=== PATIENT | male | born 1930 | race Caucasian/White ===

== ENCOUNTER 2016-05-28 12:36 | Emergency (ER) | payer MEDICARE, OTHER ==
[2016-05-28 13:16] LABS: BASOPHILS 0.2 % (0.0-2.0); EOSINOPHILS 0.7 % (0-7); HEMATOCRIT 36.7 % (42.0-54.0); HEMOGLOBIN 12.2 g/dL (13.5-17.5); IMMATURE GRANULOCYTES 0.2 % (0-5); LYMPHOCYTES 34.2 % (15-50); MCH 30.7 pg (26.0-34.0); MCHC 33.2 g/dL (31.0-37.0); MCV 92.2 fL (80.0-100.0); MEAN PLATELET VOLUME 9.7 fL (7.4-10.4); MONOCYTES 11.1 % (2-11); NEUTROPHILS 53.6 % (40-80); PLATELET COUNT 159 10x3/uL (130-400); RBC 3.98 10x6/uL (4.20-6.10); RDW 13.4 % (11.5-14.5); WBC 5.8 10x3/uL (4.8-10.8)
[2016-05-28 13:32] LABS: INR 1.07 (0.85-1.17); PROTIME 13.8 SECONDS (11.6-15.0)
[2016-05-28 13:44] LABS: ALBUMIN 3.2 g/dL (3.4-5.0); ANION GAP 11.7 mmol/L (8-16); BILIRUBIN - TOTAL 0.4 mg/dL (0.2-1.3); CALCIUM 8.8 mg/dL (8.5-10.1); CARBON DIOXIDE 27.7 mmol/L (21.0-32.0); CREATININE - SERUM 1.2 mg/dL (0.6-1.3); POTASSIUM - SERUM 4.4 mmol/L (3.5-5.1); PROTEIN - SERUM 5.9 g/dL (6.4-8.2)
[2016-05-28 14:09] LABS: APTT 23.2 SECONDS (22.8-39.4)
== END 2016-05-28 16:22 | disposition home or self-care (01) ==
LOC: D.ER 12:36
PROVIDERS: Emergency Medicine
DX: G45.9 Transient cerebral ischemic attack, unspecified (principal); R53.1 Weakness; I10 Essential (primary) hypertension; E11.9 Type 2 diabetes mellitus without complications; E78.5 Hyperlipidemia, unspecified

== ENCOUNTER → 2016-06-01 10:22 | Outpatient (CLI) | payer MEDICARE, OTHER | END | disposition home or self-care (01) | LOC: D.CT 10:22 | DX: I65.21 Occlusion and stenosis of right carotid artery (principal) ==

== ENCOUNTER → 2016-06-25 10:26 | Outpatient (CLI) | payer MEDICARE, OTHER | END | disposition home or self-care (01) | LOC: D.US 06-19 10:30 | DX: E04.1 Nontoxic single thyroid nodule (principal) ==

== ENCOUNTER 2016-06-28 11:45 | Emergency (ER) | payer MEDICARE, OTHER ==
[2016-06-28 12:56] LABS: ANION GAP 16.9 mmol/L (8-16); CALCIUM 9.1 mg/dL (8.5-10.1); CREATININE - SERUM 1.3 mg/dL (0.6-1.3); POTASSIUM - SERUM 4.9 mmol/L (3.5-5.1)
[2016-06-28 12:59] LABS: BASOPHILS 0 % (0.0-2.0); EOSINOPHILS 0.6 % (0-7); HEMATOCRIT 36.9 % (42.0-54.0); HEMOGLOBIN 12.5 g/dL (13.5-17.5); IMMATURE GRANULOCYTES 0.2 % (0-5); LYMPHOCYTES 32.3 % (15-50); MCH 31.3 pg (26.0-34.0); MCHC 33.9 g/dL (31.0-37.0); MCV 92.5 fL (80.0-100.0); MEAN PLATELET VOLUME 9.8 fL (7.4-10.4); MONOCYTES 7.8 % (2-11); NEUTROPHILS 59.1 % (40-80); PLATELET COUNT 145 10x3/uL (130-400); RBC 3.99 10x6/uL (4.20-6.10); RDW 12.8 % (11.5-14.5); WBC 5.3 10x3/uL (4.8-10.8)
== END 2016-06-28 14:30 | disposition home or self-care (01) ==
LOC: D.ER 11:45
PROVIDERS: Emergency Medicine
DX: G45.9 Transient cerebral ischemic attack, unspecified (principal); E11.9 Type 2 diabetes mellitus without complications; I10 Essential (primary) hypertension; E78.5 Hyperlipidemia, unspecified; I44.0 Atrioventricular block, first degree

== ENCOUNTER 2016-09-20 11:00 | Emergency (ER) | payer MEDICARE, OTHER ==
[2016-09-20 15:11] LABS: BASOPHILS 0 % (0-2); EOSINOPHILS 0.3 % (0-7); HEMATOCRIT 38.4 % (42.0-54.0); IMMATURE GRANULOCYTES 0.2 % (0-5); LYMPHOCYTES 17.4 % (15-50); MCH 31.1 pg (26.0-34.0); MCHC 33.9 g/dL (31.0-37.0); MCV 91.9 fL (80.0-100.0); MEAN PLATELET VOLUME 9.7 fL (7.4-10.4); MONOCYTES 7.8 % (2-11); NEUTROPHILS 74.3 % (40-80); PLATELET COUNT 164 10x3/uL (130-400); RBC 4.18 10x6/uL (4.20-6.10); RDW 13.1 % (11.5-14.5)
[2016-09-20 15:18] LABS: INR 1.04 (0.85-1.17); PROTIME 13.4 SECONDS (11.6-15.0)
[2016-09-20 15:38] LABS: ALBUMIN 3.4 g/dL (3.4-5.0); ANION GAP 11.2 mmol/L (8-16); BILIRUBIN - TOTAL 0.4 mg/dL (0.2-1.3); CALCIUM 9.6 mg/dL (8.5-10.1); CARBON DIOXIDE 27.6 mmol/L (21.0-32.0); CREATININE - SERUM 1.4 mg/dL (0.6-1.3); POTASSIUM - SERUM 4.8 mmol/L (3.5-5.1); PROTEIN - SERUM 6.7 g/dL (6.4-8.2)
== END 2016-09-20 16:08 | disposition home or self-care (01) ==
LOC: D.ER 11:00
PROVIDERS: Nurse Practitioner Family
DX: S20.219A Contusion of unspecified front wall of thorax, initial encounter (principal); W01.0XXA Fall on same level from slipping, tripping and stumbling without subsequent striking against object, initial encounter; Y93.89 Activity, other specified; Y92.410 Unspecified street and highway as the place of occurrence of the external cause; Z86.73 Personal history of transient ischemic attack (TIA), and cerebral infarction without residual deficits; E11.9 Type 2 diabetes mellitus without complications; I10 Essential (primary) hypertension; E78.5 Hyperlipidemia, unspecified

== ENCOUNTER → 2017-06-17 08:45 | Outpatient (CLI) | payer MEDICARE, OTHER | END | disposition home or self-care (01) | LOC: D.US 08:45 | DX: R94.5 Abnormal results of liver function studies (principal) ==

== ENCOUNTER → 2018-06-03 09:10 | Outpatient (CLI) | payer MEDICARE, OTHER ==
[2018-06-03 10:33] LABS: ALBUMIN 3.1 g/dL (3.4-5.0); ANION GAP 10.7 mmol/L (8-16); BILIRUBIN - TOTAL 0.49 mg/dL (0.2-1.3); CALCIUM 8.8 mg/dL (8.5-10.1); CARBON DIOXIDE 26.7 mmol/L (21.0-32.0); CREATININE - SERUM 1.5 mg/dL (0.6-1.3); POTASSIUM - SERUM 4.4 mmol/L (3.5-5.1); PROTEIN - SERUM 6.4 g/dL (6.4-8.2)
== END | disposition home or self-care (01) ==
LOC: D.LAB 09:10
PROVIDERS: Family Medicine
DX: E11.9 Type 2 diabetes mellitus without complications (principal)

== ENCOUNTER 2018-08-02 12:16 | Inpatient (IN) | payer MEDICARE, OTHER ==
[~2018-08-02] VITALS: Ht 172.7 cm; Wt 87.3 kg
[2018-08-02] MEDS ORDERED: LOTREL 5/10 MG1 CAP PO (12:45)
[2018-08-02] MEDS ORDERED: WELCHOL625 MG PO (12:45)
[2018-08-02] MEDS ORDERED: LIPITOR40 MG PO (12:45)
[2018-08-02] MEDS ORDERED: XALATAN 0.0052.5 ML RIGHT EYE (12:46)
[2018-08-02] MEDS ORDERED: PREVACID30 MG PO (12:46)
[2018-08-02] MEDS ORDERED: GLUCOTROL 5 MG T5 MG PO (12:46)
[2018-08-02] MEDS ORDERED: TRICOR145 MG PO (12:46)
[2018-08-02] MEDS ORDERED: PROSCAR5 MG PO (12:46)
[2018-08-02] MEDS ORDERED: CO Q-10100 MG PO (12:47)
[2018-08-02] MEDS ORDERED: BAYER ASPIRIN325 MG PO (12:47)
[2018-08-02] MEDS ORDERED: COMBIGAN OPHT DR5 ML EACH EYE (12:47)
[2018-08-02 13:08] VITALS: BP 192/91
[2018-08-02 13:58] LABS: BASOPHILS 0 % (0-2); EOSINOPHILS 0.4 % (0-7); HEMATOCRIT 38.4 % (42.0-54.0); HEMOGLOBIN 13.1 g/dL (13.5-17.5); IMMATURE GRANULOCYTES 0.2 % (0-5); LYMPHOCYTES 12.7 % (15-50); MCH 30.8 pg (26.0-34.0); MCHC 34.1 g/dL (31.0-37.0); MCV 90.4 fL (80.0-100.0); MEAN PLATELET VOLUME 9.5 fL (7.4-10.4); MONOCYTES 11.8 % (2-11); NEUTROPHILS 74.9 % (40-80); PLATELET COUNT 147 10x3/uL (130-400); RBC 4.25 10x6/uL (4.20-6.10); RDW 13.4 % (11.5-14.5); WBC 5.5 10x3/uL (4.8-10.8)
[2018-08-02 14:00] VITALS: BP 185/65
[2018-08-02 14:03] LABS: INR 1.1 (0.85-1.17); PROTIME 13.7 SECONDS (11.6-15.0)
[2018-08-02 14:07] LABS: ALBUMIN 3.6 g/dL (3.4-5.0); ALKALINE PHOSPHATASE 81 U/L (46-116); ALT (SGPT) 31 U/L (10-68); BILIRUBIN - TOTAL 0.46 mg/dL (0.2-1.3); CALC OSMOLALITY 284 mosm/kg (275-300); CALCIUM 9.1 mg/dL (8.5-10.1); CARBON DIOXIDE 25.9 mmol/L (21.0-32.0); CHLORIDE - SERUM 105 mmol/L (98-107); CREATININE - SERUM 1.6 mg/dL (0.6-1.3); GLUCOSE 107 mg/dL (74-106); POTASSIUM - SERUM 4.4 mmol/L (3.5-5.1); PROTEIN - SERUM 7.5 g/dL (6.4-8.2); SODIUM 141 mmol/L (136-145); UREA NITROGEN 24 mg/dL (7-18); eGFR NON AFRICAN AMERICAN 43 mL/min (90-120)
[2018-08-02 14:23] LABS: CKMB 2.8 U/L (0.0-3.6); CREATINE KINASE 93 UL (21-232); PRO BNP 2605 pg/mL (0-450)
[2018-08-02 14:25] LABS: TROPONIN-I 0.125 ng/mL (0.000-0.060)
[2018-08-02 15:00] VITALS: BP 190/75
[2018-08-02 15:34] LABS: APPEARANCE CLEAR (CLEAR); BILIRUBIN NEGATIVE (NEGATIVE); COLOR YELLOW (YELLOW); GLUCOSE NEGATIVE (NEGATIVE); KETONE NEGATIVE (NEGATIVE); NITRITE NEGATIVE (NEGATIVE); PH 7.5 (5.0-6.0); PROTEIN 1+ mg/dL (NEGATIVE); SPECIFIC GRAVITY 1.005 (1.005-1.020); UROBILINOGEN NORMAL (NORMAL)
[2018-08-02 15:48] LABS: BACTERIA FEW /hpf (NONE SEEN); EPITHELIAL CELLS RARE /hpf (0-5); RED CELLS - URINE 0-5 /hpf (0-5); WHITE CELLS - URINE RARE /hpf (0-5)
[2018-08-02 18:10] VITALS: BP 166/61; BMI 30.4
[2018-08-02 20:36] VITALS: BP 134/57
[2018-08-02 23:55] VITALS: BP 149/69
[2018-08-03 04:20] VITALS: BP 152/70
[2018-08-03 05:12] LABS: BASOPHILS 0 % (0-2); EOSINOPHILS 0 % (0-7); HEMATOCRIT 33.4 % (42.0-54.0); HEMOGLOBIN 11.6 g/dL (13.5-17.5); IMMATURE GRANULOCYTES 0.2 % (0-5); MCH 30.5 pg (26.0-34.0); MCHC 34.7 g/dL (31.0-37.0); MEAN PLATELET VOLUME 9.3 fL (7.4-10.4); MONOCYTES 1.3 % (2-11); NEUTROPHILS 86.5 % (40-80); PLATELET COUNT 137 10x3/uL (130-400); WBC 5.3 10x3/uL (4.8-10.8)
[2018-08-03 05:32] LABS: ANION GAP 15.8 mmol/L (8-16); CALCIUM 8.5 mg/dL (8.5-10.1); CARBON DIOXIDE 22.3 mmol/L (21.0-32.0); CHOL - HDL RATIO 3.8 ratio (2.3-4.9); CREATININE - SERUM 1.6 mg/dL (0.6-1.3); LDL-HDL RATIO 2.4 ratio (1.5-3.5); POTASSIUM - SERUM 4.1 mmol/L (3.5-5.1)
[2018-08-03 05:34] LABS: MCV 87.9 fL (80.0-100.0)
[2018-08-03 08:59] VITALS: BP 182/56
[2018-08-03 13:09] VITALS: BP 133/69
[2018-08-03 16:47] VITALS: BP 142/60
[2018-08-03 20:00] VITALS: BP 129/75
[2018-08-04] VITALS: BP 145/64
[2018-08-04 03:00] VITALS: BP 178/73
[2018-08-04 06:20] LABS: CALCIUM 8.6 mg/dL (8.5-10.1); CARBON DIOXIDE 23.2 mmol/L (21.0-32.0); CREATININE - SERUM 1.7 mg/dL (0.6-1.3); POTASSIUM - SERUM 4.2 mmol/L (3.5-5.1)
[2018-08-04 08:30] VITALS: BP 198/88
[2018-08-04 12:18] VITALS: BMI 30.4
[2018-08-04 17:17] VITALS: BP 144/60
[2018-08-05 05:56] VITALS: BP 127/89
[2018-08-05 09:46] VITALS: BP 161/73
--- NOTE | 2018-08-05 12:38 | MORECARE ---
CASE MANAGEMENT DISCHARGE SUMMARY PATIENT: LATASHA MOORE UNIT: [id number] ADM DATE: 08/02/18 AGE: 88 : 30 SEX: M ROOM/BED: D.2217 AUTHOR: BRYCE OSBORNE PHYSICIAN: REFERRING PHYSICIAN: ASAD GOLDEN MD DATE OF SERVICE: 08/05/18 Discharge Plan Patient Name: LATASHA MOORE [facility] [facility] 1930 Planned Disposition: Home or Self Care Anticipated Discharge Date: Discharge Date: Expected LOS: Initial Reviewer: [email or web address] Initial Review Date: 08/02/2018 Generated: 08/05/18 1:37 pm DCPIA - Discharge Planning Initial Assessment Updated by [email or web address]: Nilda Ledbetter on 08/05/18 12:37 pm * Is the patient Alert and Oriented? Yes * How many steps to enter\exit or inside your home? * PCP LORNA * [facility]acy [facility] * Preadmission Environment Home with Family * ADLs Independent * Equipment Glucometer * List name and contact numbers for known caregivers / representatives who currently or will assist patient after discharge: KELLY () [phone] * Verbal permission to speak to the caregivers and representatives has been obtained from the patient. N/A * Community resources currently utilized None * Additional services required to return to the preadmission environment? No * Can the patient safely return to the preadmission environment? Yes * Has this patient been hospitalized within the prior 30 days at any hospital? No Patient Name: LATASHA MOORE Page [id number] at 1238 All edits/amendments must be made on the electronic document DICTATION DATE: 08/05/18 1237 GUITAR INSTRUCTOR: ALEJANDRA 08/05/18 1237 RPT#: [id number] DC DATE: STATUS: ADM IN [facility] [address] [place] [address] END OF REPORT
--- NOTE | 2018-08-05 12:45 | MORECARE ---
CASE MANAGEMENT DISCHARGE SUMMARY PATIENT: LATASHA MOORE UNIT: [id number] ADM DATE: 08/02/18 AGE: 88 : 30 SEX: M ROOM/BED: D.2217 AUTHOR: INDIA,DOC PHYSICIAN: REFERRING PHYSICIAN: ASAD GOLDEN MD DATE OF SERVICE: 08/05/18 Discharge Plan Patient Name: LATASHA MOORE Facility: [facility]:[place] : 1930 Planned Disposition: Home or Self Care Anticipated Discharge Date: Discharge Date: Expected LOS: Initial Reviewer: [email or web address] Initial Review Date: 08/02/2018 Generated: 08/05/18 1:45 pm Comments DCP- Discharge Planning Updated by [email or web address]: Nilda Ledbetter on 08/05/18 11:[address] Patient Name: LTAASHA MOORE Admission Status: ER Accout number: [id number] Admission Date: 08-02-2018 : 1930 Admission Diagnosis:COUGH Attending: ASAD GOLDEN Current LOS: 3 Anticipated DC Date: Planned Disposition: Home or Self Care Primary Insurance: MEDICARE A & B Discharge Planning Comments: CM met with patient to complete initial dc planning assessment. CM educated patient on the CM role and verbal consent given by patient to complete assessment. Patient lives at home with his where he is independent with his care. At discharge patient plans to return home and feels this is a safe discharge. CM discussed availability of home health, rehab services, and medical equipment. He has a glucometer at home and does not feel like he needs home health at this time. His family did question about a Nebulizer if he will need it at DC. DEJAN with Frida if he needs a nebulizer. IMM served and explained. Patient denied known discharge needs at this time. CM will continue to follow and will assist as needed with dc plans/needs. Wash Plant Operator: Nilda Ledbetter DCPIA - Discharge Planning Initial Assessment Updated by [id number]: Nilda Ledbetter on 08/05/18 12:37 pm * Is the patient Alert and Oriented? Yes * How many steps to enter\exit or inside your home? * PCP LORNA * Pharmacy [facility] * Preadmission Environment Home with Family * ADLs Independent * Equipment Glucometer * List name and contact numbers for known caregivers / representatives who currently or will assist patient after discharge: KELLY () [phone] * Verbal permission to speak to the caregivers and representatives has been obtained from the patient. N/A * Community resources currently utilized None * Additional services required to return to the preadmission environment? No * Can the patient safely return to the preadmission environment? Yes * Has this patient been hospitalized within the prior 30 days at any hospital? No Coverage Notice Reviewer: [email or web address] Kiera Ledbetter Notice Issued Date-Time: 08/05/2018 11:45 Notice Type: IM Discharge Notice Notice Delivered To: Patient Relationship to Patient: Spread Cutter Name: Delivery Method: HAND - Hand Delivered Viviana Days: Prior Verbal Notification: Recipient Understood Notice: Yes Recipient Signature: Yes Med Rec Note Co-signed by Attending: Coverage Notice Comment: Last DP export: 08/05/18 11:37 a Patient Name: LATASHA MOORE Page [phone] at 1245 All edits/amendments must be made on the electronic document DICTATION DATE: 08/05/18 1245 MOTHER REPAIRER: ALEJANDRA 08/05/18 1245 RPT#: [id number] DC DATE: STATUS: ADM IN [facility] [address] [place] [address] END OF REPORT
[2018-08-05 15:10] VITALS: BP 156/75
[2018-08-05 17:24] VITALS: BP 130/67
[2018-08-05 21:37] VITALS: BP 174/74
[2018-08-06] VITALS (22 sets, daily range): BP systolic 117–191; BP diastolic 57–92
[2018-08-06 05:27] LABS: BASOPHILS 0 % (0-2); EOSINOPHILS 0 % (0-7); HEMOGLOBIN 12.3 g/dL (13.5-17.5); IMMATURE GRANULOCYTES 0.3 % (0-5); LYMPHOCYTES 4.4 % (15-50); MCH 30.8 pg (26.0-34.0); MCHC 34.2 g/dL (31.0-37.0); MCV 90.2 fL (80.0-100.0); MEAN PLATELET VOLUME 9.8 fL (7.4-10.4); MONOCYTES 10.3 % (2-11); RBC 3.99 10x6/uL (4.20-6.10); RDW 13.6 % (11.5-14.5); WBC 13.5 10x3/uL (4.8-10.8)
[2018-08-06 05:43] LABS: PLATELET COUNT 166 10x3/uL (130-400)
[2018-08-06 05:53] LABS: ANION GAP 12.1 mmol/L (8-16); CALCIUM 8.1 mg/dL (8.5-10.1); CREATININE - SERUM 1.9 mg/dL (0.6-1.3); POTASSIUM - SERUM 5.1 mmol/L (3.5-5.1)
[2018-08-07] VITALS (26 sets, daily range): BP systolic 126–167; BP diastolic 35–78; Ht 172.7 cm; Wt 87.3 kg
[2018-08-07 04:53] LABS: BASOPHILS 0 % (0-2); EOSINOPHILS 0 % (0-7); HEMATOCRIT 34.8 % (42.0-54.0); HEMOGLOBIN 11.8 g/dL (13.5-17.5); IMMATURE GRANULOCYTES 0.1 % (0-5); LYMPHOCYTES 8.6 % (15-50); MCH 30.3 pg (26.0-34.0); MCHC 33.9 g/dL (31.0-37.0); MCV 89.5 fL (80.0-100.0); MEAN PLATELET VOLUME 9.8 fL (7.4-10.4); MONOCYTES 10.6 % (2-11); NEUTROPHILS 80.7 % (40-80); PLATELET COUNT 158 10x3/uL (130-400); RBC 3.89 10x6/uL (4.20-6.10); RDW 13.3 % (11.5-14.5)
[2018-08-07 05:01] LABS: WBC 9.4 10x3/uL (4.8-10.8)
[2018-08-07 05:12] LABS: ALBUMIN 2.9 g/dL (3.4-5.0); ANION GAP 10.3 mmol/L (8-16); BILIRUBIN - TOTAL 0.33 mg/dL (0.2-1.3); CALCIUM 8.3 mg/dL (8.5-10.1); CARBON DIOXIDE 30.7 mmol/L (21.0-32.0); CREATININE - SERUM 2.1 mg/dL (0.6-1.3); MAGNESIUM - SERUM 1.9 mg/dL (1.8-2.4); PHOSPHOROUS 4.3 mg/dL (2.5-4.9)
[2018-08-08] VITALS (23 sets, daily range): BP systolic 102–169; BP diastolic 37–88
[2018-08-08 06:47] LABS: ALBUMIN 2.6 g/dL (3.4-5.0); ANION GAP 10.5 mmol/L (8-16); BILIRUBIN - TOTAL 0.26 mg/dL (0.2-1.3); CALCIUM 8.2 mg/dL (8.5-10.1); CARBON DIOXIDE 29.6 mmol/L (21.0-32.0); CREATININE - SERUM 1.9 mg/dL (0.6-1.3); POTASSIUM - SERUM 4.1 mmol/L (3.5-5.1); PROTEIN - SERUM 5.8 g/dL (6.4-8.2)
[2018-08-08 07:00] LABS: BASOPHILS 0 % (0-2); EOSINOPHILS 0 % (0-7); HEMATOCRIT 34.9 % (42.0-54.0); HEMOGLOBIN 11.6 g/dL (13.5-17.5); IMMATURE GRANULOCYTES 0.1 % (0-5); LYMPHOCYTES 7.2 % (15-50); MCH 30.1 pg (26.0-34.0); MCHC 33.2 g/dL (31.0-37.0); MCV 90.6 fL (80.0-100.0); MEAN PLATELET VOLUME 10.4 fL (7.4-10.4); MONOCYTES 6.7 % (2-11); PLATELET COUNT 148 10x3/uL (130-400); RBC 3.85 10x6/uL (4.20-6.10); RDW 13.2 % (11.5-14.5); WBC 8.1 10x3/uL (4.8-10.8)
--- NOTE | 2018-08-08 14:57 | EC ---
PATIENT:LATASHA MOORE DATE OF SERVICE: 08/02/18 SEX: M MEDICAL RECORD: [id number] DATE OF : 30 LOCATION:[place] [address] AGE OF PATIENT: 88 ADMISSION DATE: 08/02/18 REFERRING PHYSICIAN: INTERPRETING PHYSICIAN: ELSY AMOS MD ECHOCARDIOGRAM REPORT ECHO CHARGES 4 ECHO COMPLETE Date: 08/06/18 CLINICAL DIAGNOSIS: CHF ECHOCARDIOGRAPHIC MEASUREMENTS (adult normal given) AC root (d.<3.7cm) 3.2 cm LV Septum d (<1.2 cm> 1.4 cm Valve Excursion 1.1 cm LV Septum (systole) 1.6 cm Left Atria (s.<4.0cm> 4.0 cm LVPW d(<1.2cm) 1.3 cm RV (d.<2.3cm) 3.7 cm LVPW (sytole) 1.5 cm LV diastole(<5.6CM) 6.0 cm MV E-F(>70mm/sec) cm LV systole 5.0 cm LVOT Diameter 1.6 cm MV exc.(>10mm) 1.3 cm Est.ejection fraction (50-75%) % DOPPLER: LVIT cm/sec A 83.0 cm/sec E 93.0 cm/sec LA cm/sec RVSP 34 mmHg LVOT 163 cm/sec AOP1/2T m/s Asc. Ao 214 cm/sec RVOT 67 cm/sec RA cm/sec PA 142 cm/sec AV Gradient Peak 18.28mmHg AV Mean 9.52 mmHg AV Area 1.6 cm MV Gradient Peak 7.83 mmHg MV Mean 1.59 mmHg MV Area cm COMMENTS: Edger Operator: Danis DUFFY Kiln Car Unloader: 1 Dr. Amos TAPE# PACS Pericardial Effusion N DATE OF SERVICE: 08/07/2018 FINDINGS: 1. Left ventricular chamber size is within normal limits. Left ventricular systolic function is normal. Overall ejection fraction estimated at 55%. 2. Left atrium is upper limits of normal at 4.0 cm. Right atrium and right ventricular chamber sizes are mildly dilated. 3. Valvular structures: Aortic valve demonstrates mild calcific aortic stenosis, valve area calculates to 1.6 cm-squared. There is a gradient of 18 mm across the valve. The remaining valvular structures have normal structure and ECHOCARDIOGRAM REPORT [id number] LATASHA MOORE. 4. Doppler interrogation elsewise reveals txji-[id number]-yqpesrpw mitral regurgitation, mild tricuspid regurgitation, no other valvular insufficiency or stenosis. Pulmonary systolic pressure is estimated at 34 mmHg. 5. No evidence of pericardial effusion or left ventricular thrombus. TRANSINT:[id number] Voice Confirmation ID: [id number] DOCUMENT ID: [id number] ELSY AMOS MD at 1457 CC: [id number] DICTATION DATE: 08/07/18 1519 FILE CONVERSION OPERATOR: 08/07/18 2249 ADM IN [place] [id number] [place] [id number]
[2018-08-09] VITALS (16 sets, daily range): BP systolic 119–158; BP diastolic 44–87
[2018-08-09 05:46] LABS: BASOPHILS 0.1 % (0-2); EOSINOPHILS 0 % (0-7); HEMATOCRIT 38.4 % (42.0-54.0); IMMATURE GRANULOCYTES 0.3 % (0-5); LYMPHOCYTES 7.5 % (15-50); MCH 30.5 pg (26.0-34.0); MCHC 33.9 g/dL (31.0-37.0); MCV 90.1 fL (80.0-100.0); MEAN PLATELET VOLUME 10.1 fL (7.4-10.4); MONOCYTES 5.7 % (2-11); NEUTROPHILS 86.4 % (40-80); PLATELET COUNT 164 10x3/uL (130-400); RBC 4.26 10x6/uL (4.20-6.10); RDW 13.2 % (11.5-14.5)
[2018-08-09 05:49] LABS: WBC 11.2 10x3/uL (4.8-10.8)
[2018-08-09 06:09] LABS: ANION GAP 10.3 mmol/L (8-16); CALCIUM 8.5 mg/dL (8.5-10.1); CREATININE - SERUM 1.8 mg/dL (0.6-1.3); POTASSIUM - SERUM 4.3 mmol/L (3.5-5.1)
[2018-08-10 03:07] VITALS: BP 164/85
[2018-08-10 05:56] LABS: BASOPHILS 0.1 % (0-2); EOSINOPHILS 0 % (0-7); HEMATOCRIT 41.1 % (42.0-54.0); HEMOGLOBIN 13.9 g/dL (13.5-17.5); IMMATURE GRANULOCYTES 0.5 % (0-5); LYMPHOCYTES 7.7 % (15-50); MCH 30.6 pg (26.0-34.0); MCHC 33.8 g/dL (31.0-37.0); MCV 90.5 fL (80.0-100.0); MONOCYTES 7.1 % (2-11); NEUTROPHILS 84.6 % (40-80); PLATELET COUNT 196 10x3/uL (130-400); RBC 4.54 10x6/uL (4.20-6.10); RDW 13.3 % (11.5-14.5); WBC 10.1 10x3/uL (4.8-10.8)
[2018-08-10 06:26] LABS: ANION GAP 8.5 mmol/L (8-16); CALCIUM 8.8 mg/dL (8.5-10.1); CARBON DIOXIDE 31.5 mmol/L (21.0-32.0); CREATININE - SERUM 1.6 mg/dL (0.6-1.3)
[2018-08-10 07:15] VITALS: BP 165/68
[2018-08-10 14:00] VITALS: BP 138/48
[2018-08-10 20:30] VITALS: BP 151/73
[2018-08-11] VITALS: BP 125/59
[2018-08-11 04:23] LABS: APTT 24.9 SECONDS (22.8-39.4); INR 1.13 (0.85-1.17)
[2018-08-11 04:24] LABS: ANION GAP 7.3 mmol/L (8-16); CALCIUM 8.3 mg/dL (8.5-10.1); CARBON DIOXIDE 32.7 mmol/L (21.0-32.0); CREATININE - SERUM 1.4 mg/dL (0.6-1.3)
[2018-08-11 04:30] VITALS: BP 141/68
[2018-08-11 08:00] VITALS: BP 116/44
[2018-08-11 11:00] VITALS: BP 95/47
[2018-08-11] MEDS ORDERED: OMNICEF300 MG PO (14:08)
[2018-08-11] MEDS ORDERED: BROVANA15 MCG/2 M INH (14:09)
[2018-08-11] MEDS ORDERED: IPRAT-ALBUT 0.5-3 ML UPD (14:09)
[2018-08-11] MEDS ORDERED: AMIODARONE HCL200 MG PO (14:13)
[2018-08-11] MEDS ORDERED: LOPRESSOR25 MG PO (14:14)
[2018-08-11] MEDS ORDERED: PREDNISONE10 MG PO (14:21)
[2018-08-11] MEDS ORDERED: TIMOPTIC 0.5 % O5 ML OP (14:25)
[2018-08-11] MEDS ORDERED: LOTREL 10-40 M1 EACH PO (14:42)
--- NOTE | 2018-08-11 14:43 | MORECARE ---
CASE MANAGEMENT DISCHARGE SUMMARY PATIENT: LATASHA MOORE UNIT: [id number] ADM DATE: 08/02/18 AGE: 88 : 30 SEX: M ROOM/BED: D[facility] AUTHOR: INDIA,DOC PHYSICIAN: REFERRING PHYSICIAN: ASAD GOLDEN MD DATE OF SERVICE: 08/11/18 Discharge Plan Patient Name: LATASHA MOORE Facility: [facility]:[place] : 1930 Planned Disposition: Home or Self Care Anticipated Discharge Date: Discharge Date: Expected LOS: Initial Reviewer: [id number] Initial Review Date: 08/02/2018 Generated: 08/11/18 3:43 pm Comments DCP- Discharge Planning Updated by [email or web address]: Nilda Ledbetter on 08/05/18 11:[address] Patient Name: LATASHA MOORE Admission Status: ER Accout number: [id number] Admission Date: 08-02-2018 : 1930 Admission Diagnosis:COUGH Attending: ASAD GOLDEN Current LOS: 3 Anticipated DC Date: Planned Disposition: Home or Self Care Primary Insurance: MEDICARE A & B Discharge Planning Comments: CM met with patient to complete initial dc planning assessment. CM educated patient on the CM role and verbal consent given by patient to complete assessment. Patient lives at home with his where he is independent with his care. At discharge patient plans to return home and feels this is a safe discharge. CM discussed availability of home health, rehab services, and medical equipment. He has a glucometer at home and does not feel like he needs home health at this time. His family did question about a Nebulizer if he will need it at DC. DEJAN with Frida if he needs a nebulizer. IMM served and explained. Patient denied known discharge needs at this time. CM will continue to follow and will assist as needed with dc plans/needs. Ticker Maintainer: Nilda Ledbetter DCPIA - Discharge Planning Initial Assessment Updated by [email or web address]: Nilda Ledbetter on 08/05/18 12:37 pm * Is the patient Alert and Oriented? Yes * How many steps to enter\exit or inside your home? * PCP LORNA * Pharmacy [facility] * Preadmission Environment Home with Family * ADLs Independent * Equipment Glucometer * List name and contact numbers for known caregivers / representatives who currently or will assist patient after discharge: KELLY () [phone] * Verbal permission to speak to the caregivers and representatives has been obtained from the patient. N/A * Community resources currently utilized None * Additional services required to return to the preadmission environment? No * Can the patient safely return to the preadmission environment? Yes * Has this patient been hospitalized within the prior 30 days at any hospital? No External Providers External Provider: [facility] Next Contact Date: Service Request Date: Service Type: Resolution: Reviewer: Comments: Coverage Notice Reviewer: [email or web address] Kiera Ledbetter Notice Issued Date-Time: 08/05/2018 11:45 Notice Type: IM Discharge Notice Notice Delivered To: Patient Relationship to Patient: Clinical Material Handler Name: Delivery Method: HAND - Hand Delivered Viviana Days: Prior Verbal Notification: Recipient Understood Notice: Yes Recipient Signature: Yes Med Rec Note Co-signed by Attending: Coverage Notice Comment: Last DP export: 08/05/18 11:45 a Patient Name: LATASHA MOORE Page [phone] at 1443 All edits/amendments must be made on the electronic document DICTATION DATE: 08/11/181441 OXYHYDROGEN WELDER: ALEJANDRA 08/11/181441 RPT#: [id number] DC DATE: STATUS: ADM IN [facility] [address] [place] [address] END OF REPORT
--- NOTE | 2018-08-11 14:54 | MORECARE ---
CASE MANAGEMENT DISCHARGE SUMMARY PATIENT: LATASHA MOORE UNIT: [id number] ADM DATE: 08/02/18 AGE: 88 : 30 SEX: M ROOM/BED: D.[facility] AUTHOR: INDIA,DOC PHYSICIAN: REFERRING PHYSICIAN: ASAD GOLDEN MD DATE OF SERVICE: 08/11/18 Discharge Plan Patient Name: LATASHA MOORE Facility: [facility]:[place] : 1930 Planned Disposition: Home or Self Care Anticipated Discharge Date: Discharge Date: Expected LOS: Initial Reviewer: [email or web address] Initial Review Date: 08/02/2018 Generated: 08/11/18 3:54 pm Comments DCP- Discharge Planning Updated by [email or web address]: Sandy Villeda on 08/11/18 1:[address] CM received order to set up Nebulizer for discharge. DEJAN form was signed for [facility]. CM contacted [facility] they are currently out of adult nebulizers. CM spoke with patient and family regarding second choice DME. [facility] was chosen CM called and faxed records to [facility]. IMM explained and signed 08/11/18 @ 1425. CM also gave patient 30 day supply coupon for Eliquis. CM will continue to follow and assist as needed with discharge planning / needs. DCP- Discharge Planning Updated by [email or web address]: Nilda Ledbetter on 08/05/18 11:[address] Patient Name: LATASHA MOORE Admission Status: ER Accout number: [id number] Admission Date: 08-02-2018 : 1930 Admission Diagnosis:COUGH Attending: ASAD GOLDEN Current LOS: 3 Anticipated DC Date: Planned Disposition: Home or Self Care Primary Insurance: MEDICARE A & B Discharge Planning Comments: CM met with patient to complete initial dc planning assessment. CM educated patient on the CM role and verbal consent given by patient to complete assessment. Patient lives at home with his where he is independent with his care. At discharge patient plans to return home and feels this is a safe discharge. CM discussed availability of home health, rehab services, and medical equipment. He has a glucometer at home and does not feel like he needs home health at this time. His family did question about a Nebulizer if he will need it at DC. DEJAN with Frida if he needs a nebulizer. IMM served and explained. Patient denied known discharge needs at this time. CM will continue to follow and will assist as needed with dc plans/needs. Machinist Wood: Nilda Ledbetter DCPIA - Discharge Planning Initial Assessment Updated by [id number]: Nilda Ledbetter on 08/05/18 12:37 pm * Is the patient Alert and Oriented? Yes * How many steps to enter\exit or inside your home? * PCP LORNA * [facility] * Preadmission Environment Home with Family * ADLs Independent * Equipment Glucometer * List name and contact numbers for known caregivers / representatives who currently or will assist patient after discharge: KELLY () [phone] * Verbal permission to speak to the caregivers and representatives has been obtained from the patient. N/A * Community resources currently utilized None * Additional services required to return to the preadmission environment? No * Can the patient safely return to the preadmission environment? Yes * Has this patient been hospitalized within the prior 30 days at any hospital? No Coverage Notice Reviewer: [id number] - Nilda Ledbetter Notice Issued Date-Time: 08/05/2018 11:45 Notice Type: IM Discharge Notice Notice Delivered To: Patient Relationship to Patient: Radiator Core Tester Name: Delivery Method: HAND - Hand Delivered Viviana Days: Prior Verbal Notification: Recipient Understood Notice: Yes Recipient Signature: Yes Med Rec Note Co-signed by Attending: Coverage Notice Comment: Last DP export: 08/11/18 1:43 p Patient Name: LATASHA MOORE Page [id number] at 1454 All edits/amendments must be made on the electronic document DICTATION DATE: 08/11/181452 WATER GAS OPERATOR: ALEJANDRA 08/11/18 145 RPT#: [id number] NE DATE: STATUS: ADM IN [facility] [address] [place] [address] END OF REPORT
[2018-08-11] MEDS ORDERED: ELIQUIS2.5 MG PO (15:26)
--- NOTE | 2018-08-11 16:39 | MORECARE ---
CASE MANAGEMENT DISCHARGE SUMMARY PATIENT: LATASHA MOORE UNIT: [id number] ADM DATE: 08/02/18 AGE: 88 : 30 SEX: M ROOM/BED: D.[facility] AUTHOR: INDIA,DOC PHYSICIAN: REFERRING PHYSICIAN: ASAD GOLDEN MD DATE OF SERVICE: 08/11/18 Discharge Plan Patient Name: LATASHA MOORE Facility: [facility]:[place] : 1930 Planned Disposition: Home or Self Care Anticipated Discharge Date: Discharge Date: Expected LOS: Initial Reviewer: [email or web address] Initial Review Date: 08/02/2018 Generated: 08/11/18 5:39 pm Comments DCP- Discharge Planning Updated by [email or web address]: Sandy Villeda on 08/11/18 1:[address] CM received order to set up Nebulizer for discharge. DEJAN form was signed for [facility]. CM contacted [facility] they are currently out of adult nebulizers. CM spoke with patient and family regarding second choice DME. [facility] was chosen CM called and faxed records to [facility]. IMM explained and signed 08/11/18 @ 1425. CM also gave patient 30 day supply coupon for Eliquis. CM will continue to follow and assist as needed with discharge planning / needs. DCP- Discharge Planning Updated by [email or web address]: Nilda Ldebetter on 08/05/18 11:[address] Patient Name: LATASHA MOORE Admission Status: ER Accout number: [id number] Admission Date: 08-02-2018 : 1930 Admission Diagnosis:COUGH Attending: ASAD GOLDEN Current LOS: 3 Anticipated DC Date: Planned Disposition: Home or Self Care Primary Insurance: MEDICARE A & B Discharge Planning Comments: CM met with patient to complete initial dc planning assessment. CM educated patient on the CM role and verbal consent given by patient to complete assessment. Patient lives at home with his where he is independent with his care. At discharge patient plans to return home and feels this is a safe discharge. CM discussed availability of home health, rehab services, and medical equipment. He has a glucometer at home and does not feel like he needs home health at this time. His family did question about a Nebulizer if he will need it at DC. DEJAN with Fr[facility] if he needs a nebulizer. IMM served and explained. Patient denied known discharge needs at this time. CM will continue to follow and will assist as needed with dc plans/needs. Strategic Planning Specialist: Nilda Ledbetter DCPIA - Discharge Planning Initial Assessment Updated by [id number]: Nilda Ledbetter on 08/05/18 12:37 pm * Is the patient Alert and Oriented? Yes * How many steps to enter\exit or inside your home? * PCP LORNA * [facility] * Preadmission Environment Home with Family * ADLs Independent * Equipment Glucometer * List name and contact numbers for known caregivers / representatives who currently or will assist patient after discharge: KELLY () [phone] * Verbal permission to speak to the caregivers and representatives has been obtained from the patient. N/A * Community resources currently utilized None * Additional services required to return to the preadmission environment? No * Can the patient safely return to the preadmission environment? Yes * Has this patient been hospitalized within the prior 30 days at any hospital? No External Providers External Provider: [facility] Next Contact Date: Service Request Date: Service Type: Resolution: Reviewer: Comments: Coverage Notice Reviewer: [email or web address] - Nilda Ledbetter Notice Issued Date-Time: 08/05/2018 11:45 Notice Type: IM Discharge Notice Notice Delivered To: Patient Relationship to Patient: Nursing Center Tutor Name: Delivery Method: HAND - Hand Delivered Viviana Days: Prior Verbal Notification: Recipient Understood Notice: Yes Recipient Signature: Yes Med Rec Note Co-signed by Attending: Coverage Notice Comment: Reviewer: [id number] - Sandy Villeda Notice Issued Date-Time: 08/11/2018 14:25 Notice Type: IM Discharge Notice Notice Delivered To: Patient Relationship to Patient: Self Nursing Center Tutor Name: Delivery Method: HAND - Hand Delivered Viviana Days: Prior Verbal Notification: Recipient Understood Notice: Yes Recipient Signature: Yes Med Rec Note Co-signed by Attending: Coverage Notice Comment: Last DP export: 08/11/18 1:54 p Patient Name: LATASHA MOORE Page [phone] at 1639 All edits/amendments must be made on the electronic document DICTATION DATE: 08/11/181637 A/C TECH: ALEJANDRA 08/11/181637 RPT#: [id number] DC DATE: STATUS: ADM IN [facility] [address] [place] [address] END OF REPORT
--- NOTE | 2018-08-11 17:05 | MORECARE ---
CASE MANAGEMENT DISCHARGE SUMMARY PATIENT: LATASHA MOORE UNIT: [id number] ADM DATE: 08/02/18 AGE: 88 : 30 SEX: M ROOM/BED: D.07 AUTHOR: INDIA,DOC PHYSICIAN: REFERRING PHYSICIAN: ASAD GOLDEN MD DATE OF SERVICE: 08/11/18 Discharge Plan Patient Name: LATASHA MOORE Facility: [facility]:[place] : 1930 Planned Disposition: Home or Self Care Anticipated Discharge Date: Discharge Date: Expected LOS: Initial Reviewer: [email or web address] Initial Review Date: 08/02/2018 Generated: 08/11/18 6:05 pm Comments DCP- Discharge Planning Updated by [email or web address]: Sandy Villeda on 08/11/18 3:[address] CM notified to set up Home Health. DEJAN form signed for [facility]. CM notified [facility] Natali stated they had no availability until . CM contacted [facility] spoke with Priscilla [phone] she stated they would be able to see patient 08/12/18. CM faxed [phone] records and notified Nursing that patient should receive a call from [facility] to set up visit 08/12/18. CM will continue to follow and assist with discharge planning / needs. DCP- Discharge Planning Updated by [email or web address]: Sandy Villeda on 08/11/18 1:[address] CM received order to set up Nebulizer for discharge. DEJAN form was signed for [facility]. CM contacted [facility] they are currently out of adult nebulizers. CM spoke with patient and family regarding second choice DME. [facility] was chosen CM called and faxed records to [facility]. IMM explained and signed 08/11/18 @ 1422. CM also gave patient 30 day supply coupon for Eliquis. CM will continue to follow and assist as needed with discharge planning / needs. DCP- Discharge Planning Updated by [email or web address]: Nilda Ledbetter on 08/05/18 11:[address] Patient Name: LATASHA MOORE Admission Status: ER Accout number: [id number] Admission Date: 08-02-2018 : 1930 Admission Diagnosis:COUGH Attending: ASAD GOLDEN Current LOS: 3 Anticipated DC Date: Planned Disposition: Home or Self Care Primary Insurance: MEDICARE A & B Discharge Planning Comments: CM met with patient to complete initial dc planning assessment. CM educated patient on the CM role and verbal consent given by patient to complete assessment. Patient lives at home with his where he is independent with his care. At discharge patient plans to return home and feels this is a safe discharge. CM discussed availability of home health, rehab services, and medical equipment. He has a glucometer at home and does not feel like he needs home health at this time. His family did question about a Nebulizer if he will need it at DC. DEJAN with Frida if he needs a nebulizer. IMM served and explained. Patient denied known discharge needs at this time. CM will continue to follow and will assist as needed with dc plans/needs. Warehouse Unloader: Nilda Ledbetter DCPIA - Discharge Planning Initial Assessment Updated by [email or web address]: Nilda Ledbetter on 08/05/18 12:37 pm * Is the patient Alert and Oriented? Yes * How many steps to enter\exit or inside your home? * PCP LORNA * Pharmacy [facility] * Preadmission Environment Home with Family * ADLs Independent * Equipment Glucometer * List name and contact numbers for known caregivers / representatives who currently or will assist patient after discharge: KELLY () [phone] * Verbal permission to speak to the caregivers and representatives has been obtained from the patient. N/A * Community resources currently utilized None * Additional services required to return to the preadmission environment? No * Can the patient safely return to the preadmission environment? Yes * Has this patient been hospitalized within the prior 30 days at any hospital? No Coverage Notice Reviewer: [id number] - Nilda Ledbetter Notice Issued Date-Time: 08/05/2018 11:45 Notice Type: IM Discharge Notice Notice Delivered To: Patient Relationship to Patient: Youth Care Professional Name: Delivery Method: HAND - Hand Delivered Viviana Days: Prior Verbal Notification: Recipient Understood Notice: Yes Recipient Signature: Yes Med Rec Note Co-signed by Attending: Coverage Notice Comment: Reviewer: [email or web address] Kiera Villeda Notice Issued Date-Time: 08/11/2018 14:25 Notice Type: IM Discharge Notice Notice Delivered To: Patient Relationship to Patient: Self Youth Care Professional Name: Delivery Method: HAND - Hand Delivered Viviana Days: Prior Verbal Notification: Recipient Understood Notice: Yes Recipient Signature: Yes Med Rec Note Co-signed by Attending: Coverage Notice Comment: Last DP export: 08/11/18 3:39 p Patient Name: LATASHA MOORE Page [phone] at 1705 All edits/amendments must be made on the electronic document DICTATION DATE: 08/11/181704 COMMUNICATIONS COORDINATOR: ALEJANDRA 08/11/181704 RPT#: [id number] DC DATE: STATUS: ADM IN [facility] [address] [place] [address] END OF REPORT
--- NOTE | 2018-08-12 13:52 | MORECARE ---
CASE MANAGEMENT DISCHARGE SUMMARY PATIENT: LATASHA MOORE UNIT: [id number] ADM DATE: 08/02/18 AGE: 88 : 30 SEX: M ROOM/BED: D.07 AUTHOR: INDIA,DOC PHYSICIAN: REFERRING PHYSICIAN: ASAD GOLDEN MD DATE OF SERVICE: 08/12/18 Discharge Plan Patient Name: LATASHA MOORE Facility: [facility]:[place] : 1930 Planned Disposition: Home or Self Care Anticipated Discharge Date: Discharge Date: 08/11/2018 Expected LOS: Initial Reviewer: [email or web address] Initial Review Date: 08/02/2018 Generated: 08/12/18 2:52 pm Comments DCP- Discharge Planning Updated by [email or web address]: Sandy Villeda on 08/11/18 3:[address] CM notified to set up Home Health. DEJAN form signed for 1st [facility] and [facility]. CM notified [facility] Natali stated they had no availability until . CM contacted [facility] spoke with Priscilla [phone] she stated they would be able to see patient 08/12/18. CM faxed [phone] records and notified Nursing that patient should receive a call from [facility] to set up visit 08/12/18. CM will continue to follow and assist with discharge planning / needs. DCP- Discharge Planning Updated by [id number]: Sandy Villeda on 08/11/18 1:[address] CM received order to set up Nebulizer for discharge. DEJAN form was signed for [facility]. CM contacted [facility] they are currently out of adult nebulizers. CM spoke with patient and family regarding second choice DME. [facility] was chosen CM called and faxed records to [facility]. IMM explained and signed 08/11/18 @ [phone]. CM also gave patient 30 day supply coupon for Eliquis. CM will continue to follow and assist as needed with discharge planning / needs. DCP- Discharge Planning Updated by [id number]: Nilda Ledbetter on 08/05/18 11:[address] Patient Name: LATASHA MOORE Admission Status: ER Accout number: [id number] Admission Date: 08-02-2018 : 1930 Admission Diagnosis:COUGH Attending: ASAD GOLDEN Current LOS: 3 Anticipated DC Date: Planned Disposition: Home or Self Care Primary Insurance: MEDICARE A & B Discharge Planning Comments: CM met with patient to complete initial dc planning assessment. CM educated patient on the CM role and verbal consent given by patient to complete assessment. Patient lives at home with his where he is independent with his care. At discharge patient plans to return home and feels this is a safe discharge. CM discussed availability of home health, rehab services, and medical equipment. He has a glucometer at home and does not feel like he needs home health at this time. His family did question about a Nebulizer if he will need it at DC. DEJAN with [facility] if he needs a nebulizer. IMM served and explained. Patient denied known discharge needs at this time. CM will continue to follow and will assist as needed with dc plans/needs. Dump Truck Driver Off Highway: Nilda Ledbetter DCPIA - Discharge Planning Initial Assessment Updated by [email or web address]: Nilda Ledbetter on 08/05/18 12:37 pm * Is the patient Alert and Oriented? Yes * How many steps to enter\exit or inside your home? * PCP [facility] * [facility]acy [facility] * Preadmission Environment Home with Family * ADLs Independent * Equipment Glucometer * List name and contact numbers for known caregivers / representatives who currently or will assist patient after discharge: KELLY () [phone] * Verbal permission to speak to the caregivers and representatives has been obtained from the patient. N/A * Community resources currently utilized None * Additional services required to return to the preadmission environment? No * Can the patient safely return to the preadmission environment? Yes * Has this patient been hospitalized within the prior 30 days at any hospital? No Coverage Notice Reviewer: [email or web address] - Nilda Ledbetter Notice Issued Date-Time: 08/05/2018 11:45 Notice Type: IM Discharge Notice Notice Delivered To: Patient Relationship to Patient: Perioperative Tech Name: Delivery Method: HAND - Hand Delivered Viviana Days: Prior Verbal Notification: Recipient Understood Notice: Yes Recipient Signature: Yes Med Rec Note Co-signed by Attending: Coverage Notice Comment: Reviewer: [id number] - Sandy Villeda Notice Issued Date-Time: 08/11/2018 14:25 Notice Type: IM Discharge Notice Notice Delivered To: Patient Relationship to Patient: Self Perioperative Tech Name: Delivery Method: HAND - Hand Delivered Viviana Days: Prior Verbal Notification: Recipient Understood Notice: Yes Recipient Signature: Yes Med Rec Note Co-signed by Attending: Coverage Notice Comment: Last DP export: 08/11/18 4:05 p Patient Name: LATASHA MOORE Page [id number] at 1352 All edits/amendments must be made on the electronic document DICTATION DATE: 08/12/18 1352 CHARGE NURSE: ALEJANDRA 08/12/18 1352 RPT#: [id number] DC DATE:08/11/18 STATUS: DIS IN [facility] [address] [place] [address] END OF REPORT
[2018-08-13 13:20] LABS: HEPARIN ANTI-XA <0.1 IU/mL (())
== END 2018-08-11 17:53 | disposition home or self-care (01) | DRG 193 ==
LOC: D.ER 12:16 → D.ICU 15:13 → D.MS 15:13 → D.ICU 08-06 02:54 → D.CVICU 08-07 14:48
PROVIDERS: Family Medicine; Internal Medicine Pulmonary Disease; ADMIT Family Medicine; ATTEND Family Medicine
DX: J18.9 Pneumonia, unspecified organism (principal); J96.01 Acute respiratory failure with hypoxia; J96.02 Acute respiratory failure with hypercapnia; I50.31 Acute diastolic (congestive) heart failure; I13.0 Hypertensive heart and chronic kidney disease with heart failure and stage 1 through stage 4 chronic kidney disease, or unspecified chronic kidney disease; N17.9 Acute kidney failure, unspecified; N39.0 Urinary tract infection, site not specified; J44.1 Chronic obstructive pulmonary disease with (acute) exacerbation; J44.0 Chronic obstructive pulmonary disease with (acute) lower respiratory infection; I10 Essential (primary) hypertension; E11.9 Type 2 diabetes mellitus without complications; K21.9 Gastro-esophageal reflux disease without esophagitis; E86.0 Dehydration; N40.0 Benign prostatic hyperplasia without lower urinary tract symptoms; E78.5 Hyperlipidemia, unspecified; E11.22 Type 2 diabetes mellitus with diabetic chronic kidney disease; Z87.891 Personal history of nicotine dependence; N18.3 Chronic kidney disease, stage 3 (moderate); B95.7 Other staphylococcus as the cause of diseases classified elsewhere; H40.9 Unspecified glaucoma; R13.12 Dysphagia, oropharyngeal phase; I48.91 Unspecified atrial fibrillation; K59.00 Constipation, unspecified

== ENCOUNTER 2018-08-22 08:49 | Emergency (ER) | payer MEDICARE, OTHER ==
[~2018-08-22] VITALS: Ht 172.7 cm; Wt 88.6 kg
[~2018-08-22 08:49] MED LIST: AMIODARONE HCL200 MG PO; BAYER ASPIRIN325 MG PO; BROVANA15 MCG/2 M INH; CO Q-10100 MG PO; COMBIGAN OPHT DR5 ML EACH EYE; ELIQUIS2.5 MG PO; GLUCOTROL 5 MG T5 MG PO; IPRAT-ALBUT 0.5-3 ML UPD; LIPITOR40 MG PO; LOPRESSOR25 MG PO; LOTREL 10-40 M1 EACH PO; LOTREL 5/10 MG1 CAP PO; OMNICEF300 MG PO; PREDNISONE10 MG PO; PREVACID30 MG PO; PROSCAR5 MG PO; TIMOPTIC 0.5 % O5 ML OP; TRICOR145 MG PO; WELCHOL625 MG PO; XALATAN 0.0052.5 ML RIGHT EYE
[2018-08-22 08:50] VITALS: Ht 172.7 cm; Wt 88.6 kg
[2018-08-22] MEDS ORDERED: METOPROLOL TART25 MG PO (09:38)
[2018-08-22] MEDS ORDERED: PULMICORT0.5 MG/21 INH (09:38)
[2018-08-22] MEDS ORDERED: NYSTATIN OINTME15 GM TOPICAL (09:39)
[2018-08-22 09:48] LABS: ALBUMIN 3.1 g/dL (3.4-5.0); ALKALINE PHOSPHATASE 68 U/L (46-116); ALT (SGPT) 92 U/L (10-68); BILIRUBIN - TOTAL 0.66 mg/dL (0.2-1.3); CALC OSMOLALITY 280 mosm/kg (275-300); CARBON DIOXIDE 24.9 mmol/L (21.0-32.0); CHLORIDE - SERUM 103 mmol/L (98-107); CREATININE - SERUM 1.6 mg/dL (0.6-1.3); GLUCOSE 116 mg/dL (74-106); POTASSIUM - SERUM 4.8 mmol/L (3.5-5.1); PROTEIN - SERUM 6.7 g/dL (6.4-8.2); SODIUM 136 mmol/L (136-145); UREA NITROGEN 35 mg/dL (7-18); eGFR NON AFRICAN AMERICAN 43 mL/min (90-120)
[2018-08-22 09:59] LABS: CKMB 3.6 U/L (0.0-3.6); CREATINE KINASE 62 UL (21-232); MAGNESIUM - SERUM 1.7 mg/dL (1.8-2.4); TROPONIN-I 0.033 ng/mL (0.000-0.060)
[2018-08-22 10:28] LABS: BASOPHILS 0 % (0-2); EOSINOPHILS 0.2 % (0-7); HEMATOCRIT 41.6 % (42.0-54.0); IMMATURE GRANULOCYTES 0.1 % (0-5); LYMPHOCYTES 16.7 % (15-50); MCH 30.6 pg (26.0-34.0); MCHC 33.7 g/dL (31.0-37.0); MEAN PLATELET VOLUME 10.4 fL (7.4-10.4); RBC 4.57 10x6/uL (4.20-6.10); RDW 14.1 % (11.5-14.5); WBC 9.2 10x3/uL (4.8-10.8)
[2018-08-22 10:29] LABS: PLATELET COUNT 105 10x3/uL (130-400)
[2018-08-22 12:14] LABS: APPEARANCE CLEAR (CLEAR); BILIRUBIN NEGATIVE (NEGATIVE); COLOR YELLOW (YELLOW); GLUCOSE NEGATIVE (NEGATIVE); KETONE NEGATIVE (NEGATIVE); NITRITE NEGATIVE (NEGATIVE); PROTEIN NEGATIVE (NEGATIVE); SPECIFIC GRAVITY 1.015 (1.005-1.020); UROBILINOGEN NORMAL (NORMAL)
[2018-08-22 15:02] VITALS: BP 158/69
== END 2018-08-22 14:55 ==
LOC: D.ER 08:49
PROVIDERS: Family Medicine
DX: R53.81 Other malaise (principal); I48.91 Unspecified atrial fibrillation; Z86.73 Personal history of transient ischemic attack (TIA), and cerebral infarction without residual deficits; E11.9 Type 2 diabetes mellitus without complications; I10 Essential (primary) hypertension

== ENCOUNTER 2018-09-19 13:38 | Emergency (ER) | payer MEDICARE, OTHER ==
[~2018-09-19] VITALS: Ht 172.7 cm; Wt 87.5 kg
[~2018-09-19 13:38] MED LIST changes: +METOPROLOL TART25 MG PO; +NYSTATIN OINTME15 GM TOPICAL; +PULMICORT0.5 MG/21 INH
[2018-09-19 13:45] VITALS: Ht 172.7 cm; Wt 87.5 kg
[2018-09-19 15:15] VITALS: BP 168/72
== END 2018-09-19 16:42 | disposition home or self-care (01) ==
LOC: D.ER 13:38
DX: M54.5 Low back pain (principal); I48.91 Unspecified atrial fibrillation; Z79.01 Long term (current) use of anticoagulants

== ENCOUNTER 2018-09-26 07:44 | Inpatient (IN) | payer MEDICARE, OTHER ==
[~2018-09-26] VITALS: Ht 172.7 cm; Wt 90.7 kg
--- NOTE | ~2018-09-26 | HEMODYNAMI ---
PATIENT:LATASHA MOORE MEDICAL RECORD: [id number] : [birth year] [facility] [id number] ADMISSION DATE: 09/26/18 Generatedon:09/29/201810:04 Patient name: LATASHA MOORE Patient #: [id number] SSN: : 1930 Date of study: 09/29/2018 Page: Of Hemodynamic Procedure Report Patient Data Patient Demographics Procedure consent was obtained First Name: LATASHA Gender: Male Last Name: OSCAR : 1930 [facility] Initial: PALAK Age: 88 year(s) Patient #: [id number] Race: Unknown Additional ID: [id number] Contact details [address]: [address] [place] [address] State: [place] City: [place] Zip code: [address] Past Medical History Allergies: No known allergies Admission Admission Data Admission Date: 09/26/2018 Admission Time: 9:32 Room #: D.2115 Weight (lbs.): 200.62 Weight (kg.): 91 Lab Results Lab Result Date: 09/27/2018 Lab Result Time: 0:00 Biochemistry Name Units Result Min Max BUN mg/dl 28 --(----)-* 7 18 Creatinine mg/dl 1.5 --(----)-* 0.6 1.3 CBC Name Units Result Min Max Hematocrit % 34.2 *-(----)-- 42 54 Hemoglobin g/dl 11.1 *-(----)-- 13.5 17.5 Procedure Procedure Types Cath Procedure PCI Procedure Coronary Stent Coronary Stent Initial x2 Procedure Description Procedure Date Procedure Date: 09/29/2018 Procedure Start Time: 9:51 Procedure End Time: 10:03 Procedure Staff Name Function Adis Amos MD Performing Physician Rosa Patel RT Scrub Nelly Monge RN Nurse Yunier Loza RT Monitor Procedure Data Cath Procedure Fluoroscopy Diagnostic fluoroscopy Total fluoroscopy Time: 2.5 time: 2.5 min min Diagnostic fluoroscopy Total fluoroscopy dose: 218 dose: 218 mGy mGy Contrast Material Contrast Material Type Amount (ml) Isovue 300 75 Entry Location Entry Primary Successful Side Size Upsize Upsize Entry Closure Succes sful Closure Location (Fr) 1 (Fr) 2 (Fr) Remarks Device Remarks Femoral Right 6 Fr Exoseal artery Short Estimated blood loss: 10 ml Procedure Complications No complications Procedure Medications Medication Administration Route Dosage 0.9% NaCl I.V. 100 ml/hr Oxygen etCO2 Nasal cannula 2 l/min Lidocaine 2% added to field 20 Heparin Flush Bag added to field 2 bags (1000units/500ml NS) Versed I.V. 2 mg Fentanyl I.V. 50 mcg Heparin Bolus I.V. 4000 units Versed I.V. 2 mg Fentanyl I.V. 50 mcg Hemodynamics Rest HGB: 11.1 (g/dl) Heart Rate: 70 (bpm) Pressure Samples Time Site Value (mmHg) Purpose Heart Use Rate(bpm) 9:52 AO 167/78(109) Snapshot 69 Snapshots Pre Cath Intra NCS Post Cath Vital Signs Time Heart Resp SPO2 etCO2 NIBP (mmHg) Rhythm Pain Sedation Rate (ipm) (%) (mmHg) Status Level (bpm) 9:33:28 68 21 98 34.5 164/89(109) NSR 0 (11) 10(A) , No pain 9:37:48 67 22 100 32.2 168/74(113) NSR 0 (11) 10(A) , No pain 9:42:10 70 23 100 27 157/77(99) NSR 0 (11) 10(A) , No pain 9:46:28 71 23 100 22.5 155/75(126) NSR 0 (11) 10(A) , No pain 9:50:44 69 28 100 21.5 165/78(116) NSR 0 (11) 10(A) , No pain 9:55:04 71 20 97 410 153/75(114) NSR 0 (11) 10(A) , No pain 9:59:22 73 28 98 33 141/67(99) NSR 0 (11) 10(A) , No pain 10:03:36 72 23 99 39 142/70(112) NSR 0 (11) 10(A) , No pain Medications Time Medication Route Dose Verified Delivered Reason Notes Effectiveness by by 9:32:53 0.9% NaCl I.V. 100 Adis Nelly used for ml/hr Bette Monge shortage worker 9:32:59 Oxygen etCO2 2 Adis Nelly used for Nasal l/min Bette Monge procedure cannula RN 9:33:04 Lidocaine 2% added 20ml Adis Adis for local to vial Bette Amos MD anesthetic field 9:33:08 Heparin Flush added 2 Adis Adis used for Bag to bags Bette Amos MD procedure (1000units/500ml field NS) 9:50:16 Versed I.V. 2 mg Adis Nelly for sedation Bette Monge RN 9:50:26 Fentanyl I.V. 50 Adis Nelly for sedation mcg Bette Monge RN 9:54:28 Heparin Bolus I.V. 4000 Adis Nelly for verifi ed units Bette Monge anticoagulation with Dr. TANISHA Amos 9:55:50 Versed I.V. 2 mg Adis Nelly for sedation Bette Monge RN 9:55:55 Fentanyl I.V. 50 Adis Nelly for sedation mcg Bette Monge organ tuner Log Time Note 8:55:33 Yunier Loza RT(R) sent for patient. Start room use. 8:59:38 Patient Weight : 200.62 lbs 9:07:13 Informed consent obtained and on chart 9:07:16 Diagnostic Cath Status : Elective 9:08:34 Time tracking: Regular hours (M-F 7:00 - 5:00) 9:08:39 Plan of Care:Hemodynamics will remain stable., Cardiac rhythm will remain stable., Comfort level will be maintained., Respiratory function will remain adequate., Patient/ family verbilizes understanding of procedure., Procedure tolerated without complication., Recovers from procedure without complications.. 9:25:47 Patient received from PCU to CCL 3 Alert and oriented. Tansferred to table in Supine position. 9:32:21 Vital chart was started 9:32:53 0.9% NaCl 100 ml/hr I.V. was administered by Nelly Monge RN; used for procedure; 9:32:59 Oxygen 2 l/min etCO2 Nasal cannula was administered by Nelly Monge RN; used for procedure; 9:33:04 Lidocaine 2% 20ml vial added to field was administered by Adis Amos MD; for local anesthetic; 9:33:08 Heparin Flush Bag (1000units/500ml NS) 2 bags added to field was administered by Adis Amos MD; used for procedure; 9:36:11 Warm blankets applied, and dominic hugger turned on for patient comfort. 9:36:11 Correct patient and procedure confirmed by team. 9:36:12 ECG and BP/O2 sat monitors applied to patient. 9:36:14 Baseline sample Acquired. 9:36:17 Rhythm: sinus rhythm 9:36:19 Full Disclosure recording started 9:38:11 H&P Date Dictated: 09/29/2018 Within 30 days and on chart.. 9:38:11 Pre-procedure instructions explained to patient. 9:38:12 Pre-op teaching completed and patient verbalized understanding. 9:38:25 Family in patients room. 9:38:28 Patient NPO since Midnight. 9:38:30 Is the patient allergic to Iodine/contrast media? No. 9:38:33 Is patient on blood thinner?Yes 9:39:38 ACC The patient was administered the following blood thiners within the last 24 hours: ACCPlavix 9:39:42 Patient diabetic? Yes. 9:39:44 If diabetic: On Metformin? Yes 9:39:48 Previous problem with sedation/anesthesia? No ? 9:39:49 Snore? No 9:39:50 Sleep apnea? No 9:39:51 Deviated septum? No 9:39:52 Opens mouth fully? Yes 9:39:52 Sticks out tongue? Yes 9:39:54 Airway obstruction? No ? 9:40:21 Dentures? No ? 9:40:25 Pre procedure: right dorsailis pedis pulse 1+ Palpable, but thready & weak; easily obliterated 9:40:28 Patient pain scale 0/10 ?. 9:40:38 IV patent on arrival in left forearm with 0.9% NaCl at O. 9:40:40 Lab results completed and on chart. 9:40:43 Right groin area was prepped with chlora-prep and draped in sterile fashion 9:40:44 Alarms reviewed by R. N. 9:40:45 Sharps counted by scrub and verified by R.N. 9:40:48 Use device set Radial Dx or PCI 9:40:50 Use device set TAUTH PCI 9:40:53 Tegaderm 4 x 4 ([id number]) opened to sterile field. 9:40:54 ACIST Manifold (47890) opened to sterile field. 9:40:54 ACIST Hand Control (38436) opened to sterile field. 9:40:55 ACIST Syringe (77505) opened to sterile field. 9:40:56 Medline Cath Pack ([id number]) opened to sterile field. 9:40:56 Bag Decanter (2002S) opened to sterile field. 9:40:57 DIAGNOSTIC WIRE .035 260cm J wire (770563) opened to sterile field. 9:41:15 INFLATOR Merit BasixCompak (IH3270) opened to sterile field. 9:41:17 CHOICE PT Extra Support 182cm wire ([id number]) opened to sterile field. 9:41:19 SHEATH 6FR Jerome (ODD511) opened to sterile field. 9:47:16 IV left forearm was found to be infiltrated. 9:47:29 IV CATHETER 24g opened to sterile field. 9:47:53 IV started by Nelly Monge RN inleft hand with a 24 gauge IV catheter with 0.9% NaCl at KVO. 9:49:26 --------ALL STOP TIME OUT------ 9:49:27 Final Timeout: patient, procedure, and site verified with staff and physician. All members of the team are in agreement. 9:49:29 Right groin site verified by team. 9:49:32 Maximum allowable Isovue 300 dose 300ml. Physician notified. (300ml for normal creatinines. For patients with creatinine of 1.7 or higher multiply weight(kg) x 5 divided by creatinine.) 9:49:37 Fire Safety Assessment: A--An alcohol-based skin anteseptic being used preoperatively., C--Open oxygen or nitrous oxide is being used., D--An ESU, laser, or fiber-optic light is being used. 9:49:40 Physical assessment completed. ASA score P 2 - A patient with mild systemic disease as per Adis Amos MD. 9:49:42 Sedation plan: IV Moderate Sedation Medication:Versed, Fentanyl 9:50:16 Versed 2 mg I.V. was administered by Nelly Monge RN; for sedation; 9:50:26 Fentanyl 50 mcg I.V. was administered by Nelly Monge RN; for sedation; 9:51:41 Procedure started. 9:51:44 Local anesthetic to right femoral artery with Lidocaine 2% by Adis Amos MD.INITIAL ACCESS ONLY 9:52:13 A 6 Fr Short sheath was inserted into the Right Femoral artery 9:52:30 GUIDE 6FR XBLAD 3.5 catheter ([id number]) opened to sterile field. 9:52:49 6 Fr XBLAD 3.5 guide catheter was inserted over the wire 9:54:28 Heparin Bolus 4000 units I.V. was administered by Nelly Monge RN; for anticoagulation; verified with Dr. Amos 9:55:39 CPTXS wire advanced. 9:55:44 Wire advanced across lesion. 9:55:50 Versed 2 mg I.V. was administered by Nelly Monge RN; for sedation; 9:55:55 Fentanyl 50 mcg I.V. was administered by Nelly Monge RN; for sedation; 9:56:02 Place stent Inflation Number: 1 A ORLANDO RX 3.5 x 15 stent ([id number]) was prepped and advanced across the LMCA. The stent was deployed at 13 WILBUR for 0:10 (min:sec). 9:57:08 Wire redirected to LAD. 9:57:34 Inflation number: 1 The stent balloon was then re-inflated across the Prox LAD to 15 WILBUR for 0:10 (min:sec). 9:58:27 Place stent Inflation Number: 2 A ORLANDO RX 3.0 x 12 stent ([id number]) was prepped and advanced across the Prox LAD. The stent was deployed at 15 WILBUR for 0:10 (min:sec). 9:59:02 EXOSEAL 6Fr (EX600) opened to sterile field. 9:59:06 Stent catheter was removed intact over wire. 9:59:07 Wire removed. 9:59:07 Guide catheter removed. 9:59:37 Sheath removed intact; hemostasis achieved with Exoseal to the Right Femoral artery. 9:59:39 Procedure ended.(Physican Out) 10:02:05 Fluoroscopy time 02.50 minutes. 10:02:10 Fluoroscopy dose: 218 mGy 10:02:10 Flurop Dose total: 218 10:02:14 Contrast amount:Isovue 300 75ml. 10:02:16 Sharps counted by scrub and verified by R.N. 10:02:17 Insertion/operative site no bleeding no hematoma. 10:02:20 Post-op/insertion site Right Femoral artery dressed using a 4 x 4 and Tegaderm. 10:02:22 Post Procedure Pulses reassessed and unchanged 10:02:25 Post-procedure physical assessment completed. ASA score P 2 - A patient with mild systemic disease as per Adis Amos MD. 10:02:27 Post procedure rhythm: unchanged. 10:02:30 Estimated blood loss: 10 ml 10:02:31 Post procedure instruction explained to patient.Patient verbalizes understanding. 10:02:32 Patient needs reinforcement of post procedure teaching. 10:02:37 Procedure type changed to Cath procedure, PCI procedure, Coronary Stent, Coronary Stent Initial x2 10:02:39 Procedure and supply charges have been captured, reviewed, submitted and are correct. 10:02:42 Procedure Complication : No complications 10:03:17 Vital chart was stopped 10:03:17 See physician's report for complete and final results. 10:03:20 Report given to Pre/Post Procedure Room. 10:03:27 Patient transfered to Pre/Post Procedure Room with Stretcher. 10:03:29 Procedure ended. 10:03:29 Full Disclosure recording stopped 10:04:29 End room use (Document Last) Intervention Summary Intervention Notes Time ActionType Lesion and Equipment Used Action# Pressure Duration Attributes 9:56:[address] stent LMCA ORLANDO RX 3.5 x 1 13 00:10 15 stent ([id number]) 9:57:34 Reinflate Prox LAD ORLANDO RX 3.5 x 1 15 00:10 stent 15 stent balloon ([id number]) 9:58:27 Place stent Prox LAD ORLANDO RX 3.0 x 2 15 00:10 12 stent ([id number]) Device Usage Item Name Manufacture Quantity Catalog Number Hospital Part Current M inimal Lot# / Charge Number Stock Stock Serial# Code Tegaderm 4 x 4 3M 1 [id number] 900253 266857 868244 5 (1626W) ACIST Manifold Acist 1 86666 277238 335363 191548 5 (56007) Medical Systems Inc ACIST Hand Acist 1 74483 602493 322756 633597 5 Control Medical (95950) Systems Inc ACIST Syringe Acist 1 14108 616992 806282 251577 2 0 (98531) Medical Systems Inc Medline Cath Medline 1 [id number] 896464 11537 038744 5 Pack ([id number]) Bag Decanter Microtek 1 2002S 609159 12294 904957 5 (2001S) Medical Inc. DIAGNOSTIC St Thom 1 221009 740839 874335 253749 3 0 WIRE .035 260cm J wire (958745) INFLATOR Merit Merit 1 TH4202 453643 680105 365587 1 5 [employer] (PZ0426) CHOICE PT [place] 1 [id number] 816269 353113 609892 5 Extra Support Scientific 182cm wire ([id number]) SHEATH 6FR Terumo 1 HHO079 885731 973386 012234 4 0 Jerome (MOI048) IV CATHETER B. Lewis 1 0370144-65 679999 095906 562798 5 24g GUIDE 6FR Cardinal 1 [id number] 355822 533971 093961 1 0 XBLAD 3.5 Health catheter ([id number]) ORLANDO RX 3.5 x Medtronic 1 [id number] 980370 1228763 020765 5 [id number] 15 stent ([id number]) ORLANDO RX 3.0 x Medtronic 1 [id number] 273757 8825917 569841 5 [id number] 12 stent ([id number]) EXOSEAL 6Fr Cardinal 1 EX600 990919 013179 728822 1 0 (EX600) Health Signature Audit Mcguffey Stage Time Signature Unsigned Intra-Procedure 09/29/2018 Yunier Loza 10:04:43 AM RT(R) Signatures Monitor : Yunier Loza RT Signature : Date : Time : [address] [place] [address]
--- NOTE | ~2018-09-26 | HEMODYNAMI ---
PATIENT:LATASHA MOORE MEDICAL RECORD: [id number] : 30 LOCATION[facility] [id number] ADMISSION DATE: 09/26/18 Generatedon:09/27/201812:50 Patient name: LATASHA MOORE Patient #: [id number] SSN: : 1930 Date of study: 09/27/2018 Page: Of Hemodynamic Procedure Report Patient Data Patient Demographics Procedure consent was obtained First Name: LATASHA Gender: Male Last Name: OSCAR : 1930 [facility] Initial: PALAK Age: 88 year(s) Patient #: [id number] Race: Unknown Additional ID: [id number] Contact details Address: [address] [place] [address] State: [place] City: [place] Zip code: [address] Past Medical History Allergies: No known allergies Admission Admission Data Admission Date: 09/26/2018 Admission Time: 9:32 Room #: D2115 Weight (lbs.): 200.62 Weight (kg.): 91 Lab Results Lab Result Date: 09/27/2018 Lab Result Time: 0:00 Biochemistry Name Units Result Min Max BUN mg/dl 28 --(----)-* 7 18 Creatinine mg/dl 1.5 --(----)-* 0.6 1.3 CBC Name Units Result Min Max Hematocrit % 34.2 *-(----)-- 42 54 Hemoglobin g/dl 11.1 *-(----)-- 13.5 17.5 Procedure Procedure Types Cath Procedure Diagnostic Procedure LHC LHC w/Coronaries PCI Procedure Coronary Stent Coronary Stent Initial Procedure Description Procedure Date Procedure Date: 09/27/2018 Procedure Start Time: 12:33 Procedure End Time: 12:50 Procedure Staff Name Function Adis Amos MD Performing Physician Yunier Loza RT Monitor Kat Jones RT Scrub Taras Paige RN Nurse Procedure Data Cath Procedure Fluoroscopy Diagnostic fluoroscopy Total fluoroscopy Time: 4.2 time: 4.2 min min Diagnostic fluoroscopy Total fluoroscopy dose: 816 dose: 816 mGy mGy Contrast Material Contrast Material Type Amount (ml) Isovue 300 73 Entry Location Entry Primary Successful Side Size Upsize Upsize Entry Closure Hopkins ccessful Closure Location (Fr) 1 (Fr) 2 (Fr) Remarks Device Remarks Radial Right 6 Fr Mechanical artery Short Compression Estimated blood loss: 10 ml Diagnostic catheters Device Type Used For End Catheter Placement DIAGNOSTIC Northwood 110cm 5 Procedure Fr catheter ([id number]) Procedure Complications No complications Procedure Medications Medication Administration Route Dosage Oxygen etCO2 Nasal cannula 2 l/min Lidocaine 2% added to field 20 Heparin Flush Bag added to field 2 bags (1000units/500ml NS) 0.9% NaCl I.V. 100 ml/hr Radial Cocktail I.A. 1 syringe (Verapamil 2mg/Nitro 400mcg/Heparin 1500units) Versed I.V. 0.5 mg Fentanyl I.V. 25 mcg Heparin Bolus I.V. 4000 units Integrilin (Bolus I.V. 8.5 ml 2mg/ml) Plavix P.O. 600 mg Hemodynamics Rest HGB: 11.1 (g/dl) Heart Rate: 59 (bpm) Pressure Samples Time Site Value (mmHg) Purpose Heart Use Rate(bpm) 12:36 AO 158/57(82) Snapshot 66 12:36 AO 152/77(112) Snapshot 68 Snapshots Pre Cath Intra NCS Post Cath Vital Signs Time Heart Resp SPO2 etCO2 NIBP (mmHg) Rhythm Pain Sedation Rate (ipm) (%) (mmHg) Status Level (bpm) 12:30:15 67 36 94 0 148/71(112) NSR 0 (11) 10(A) , No pain 12:35:43 70 32 94 0 155/79(106) NSR 0 (11) 10(A) , No pain 12:40:21 68 17 100 0 168/78(124) NSR 0 (11) 9(A) , No pain 12:46:41 68 17 100 32.8 171/87(121) NSR 0 (11) 10(A) , No pain Medications Time Medication Route Dose Verified Delivered Reason Not es Effectiveness by by 12:25:19 Oxygen etCO2 2 l/min Adis Grajeda used for Nasal Bette Paige minesweeping officer cannula 12:33:26 Lidocaine 2% added 20ml Adis Arceo for local to vial Bette Amos MD anesthetic field 12:33:33 Heparin Flush added 2 bags Adis Arceo used for Bag to Bette Amos MD procedure (1000units/500ml field NS) 12:33:42 0.9% NaCl I.V. 100 Adis Elderhiram Per physician ml/hr Bette Paige RN 12:34:30 Radial Cocktail I.A. 1 Adis Arceo for (Verapamil syringe Bette Amos MD vasodilation 2mg/Nitro 400mcg/Heparin 1500units) 12:35:28 Versed I.V. 0.5 mg Adis Grajeda for sedation Bette Paige RN 12:35:33 Fentanyl I.V. 25 mcg Adis Grajeda for sedation Bette Paige RN 12:41:42 Heparin Bolus I.V. 4000 Adis Grajeda for valdez ified units Bette Paige RN anticoagulation with dr amos 12:43:14 Integrilin I.V. 8.5 ml Adis Grajeda for was mohamud (Bolus 2mg/ml) Bette Paige RN antiplatelet 1.5 ml therapy of vial 12:49:08 Plavix P.O. 600 mg Adis Grajeda for Bette Paige RN antiplatelet therapy Procedure Log Time Note 11:44:14 Signed procedure consent form obtained from patient. 11:44:16 Diagnostic Cath status Urgent 11:44:59 Yunier Loza RT(R) sent for patient. Start room use. 11:53:07 Time tracking: Call back (After hours or weekends) 11:53:12 Plan of Care:Hemodynamics will remain stable., Cardiac rhythm will remain stable., Comfort level will be maintained., Respiratory function will remain adequate., Patient/ family verbilizes understanding of procedure., Procedure tolerated without complication., Recovers from procedure without complications.. 11:59:03 Patient Weight : 200.62 lbs 11:59:10 Patient allergic to No known allergies 11:59:49 Lab Result : BUN 28 mg/dl 11:59:49 Lab Result : Creatinine 1.5 mg/dl 11:59:49 Lab Result : Hematocrit 34.2 % 11:59:49 Lab Result : Hemoglobin 11.1 g/dl 12:07:14 Patient received from Med II to CCL 1 Alert and oriented. Tansferred to table in Supine position. 12:07:14 Warm blankets applied, and dominic hugger turned on for patient comfort. 12:07:15 Correct patient and procedure confirmed by team. 12:07:15 ECG and BP/O2 sat monitors applied to patient. 12:25:19 Oxygen 2 l/min etCO2 Nasal cannula was administered by Taras Paige RN; used for procedure; 12:26:18 Baseline sample Acquired. 12:26:22 Rhythm: sinus rhythm 12:26:25 Full Disclosure recording started 12:26:29 H&P Date Dictated: 09/27/2018 Within 30 days and on chart.. 12:26:31 Pre-procedure instructions explained to patient. 12:26:32 Pre-op teaching completed and patient verbalized understanding. 12:26:34 Family in patients room. 12::35 Patient NPO since Midnight. 12:26:37 Is the patient allergic to Iodine/contrast media? No. 12:26:39 Is patient on blood thinner?No 12:26:44 Patient diabetic? Yes. 12:26:45 If diabetic: On Metformin? Yes 12:26:50 Previous problem with sedation/anesthesia? No ? 12:29:29 Snore? No 12:29:30 Sleep apnea? No 12:29:31 Deviated septum? No 12:29:32 Opens mouth fully? Yes 12:29:33 Sticks out tongue? Yes 12:29:35 Airway obstruction? No ? 12:29:38 Dentures? No ? 12:29:42 Pre procedure: right dorsailis pedis pulse 1+ Palpable, but thready & weak; easily obliterated 12:29:44 Modified Lalo's test Ulnar < 7 seconds 12:29:46 Patient pain scale 0/10 ?. 12:29:53 IV left antecubital D/C'd due to infiltration. 12:30:00 Vital chart was started 12:30:08 IV started by Taras Paige RN inleft forearm with a 22 gauge IV catheter with 0.9% NaCl at KVO. 12:30:13 Right Radial & Right Groin area was prepped with chlora-prep and draped in sterile fashion 12:30:21 Alarms reviewed by R. N. 12:30:21 Sharps counted by scrub and verified by R.N. 12:30:22 --------ALL STOP TIME OUT------ 12:30:23 Final Timeout: patient, procedure, and site verified with staff and physician. All members of the team are in agreement. 12:30:25 Right Radial & Right Groin site verified by team. 12:30:28 Maximum allowable Isovue 300 dose 300ml. Physician notified. (300ml for normal creatinines. For patients with creatinine of 1.7 or higher multiply weight(kg) x 5 divided by creatinine.) 12:30:32 Fire Safety Assessment: A--An alcohol-based skin anteseptic being used preoperatively., C--Open oxygen or nitrous oxide is being used. 12:30:35 Physical assessment completed. ASA score P 2 - A patient with mild systemic disease as per Adis Amos MD. 12::38 Sedation plan: IV Moderate Sedation Medication:Versed, Fentanyl 12:33:26 Lidocaine 2% 20ml vial added to field was administered by Adis Amos MD; for local anesthetic; 12:33:33 Heparin Flush Bag (1000units/500ml NS) 2 bags added to field was administered by Adis Amos MD; used for procedure; 12:33:35 Use device set Radial Dx or PCI 12:33:38 Procedure started. 12:33:42 0.9% NaCl 100 ml/hr I.V. was administered by Taras Paige RN; Per physician; 12:33:43 Local anesthetic to right radial artery with Lidocaine 2% by Adis Amos MD.INITIAL ACCESS ONLY 12:33:45 Zero performed for pressure channel P1 12:33:48 Zero performed for pressure channel P1 12:34:30 Radial Cocktail (Verapamil 2mg/Nitro 400mcg/Heparin 1500units) 1 syringe I.A. was administered by Adis Amos MD; for vasodilation; 12:34:35 A 6 Fr Short sheath was inserted into the Right Radial artery 12:34:38 Tegaderm 4 x 4 (1626W) opened to sterile field. 12:34:39 ACIST Hand Control (37227) opened to sterile field. 12:34:39 ACIST Manifold (11928) opened to sterile field. 12:34:40 ACIST Syringe (81470) opened to sterile field. 12:34:41 Medline Cath Pack ([id number]) opened to sterile field. 12:34:41 Bag Decanter () opened to sterile field. 12:34:42 DIAGNOSTIC WIRE .035 260cm J wire (897655) opened to sterile field. 12:34:42 MBrace Wrist Support ([id number]) opened to sterile field. 12:34:43 SHEATH 6FR Slender (86-8633) opened to sterile field. 12:34:47 A DIAGNOSTIC Northwood 110cm 5 Fr catheter (507936) was advanced over the wire and used for Procedure. 12:35:22 LV angiography performed. 12:35:23 LV gram done using ASH 12:35:28 Versed 0.5 mg I.V. was administered by Taras Paige RN; for sedation; 12:35:28 EF : 55 % 12:35:30 Injector settings: Ml/sec: 7, Volume: 15, 12:35:33 Fentanyl 25 mcg I.V. was administered by Taras Paige RN; for sedation; 12:36:17 LCA angiography performed. 12:37:36 Catheter exchanged over wire. 12:37:58 GUIDE 6FR AR 2.0 SH catheter ([id number]) opened to sterile field. 12:38:13 6 Fr AR 2 SH guide catheter was inserted over the wire 12:40:04 Use device set [facility] PCI 12:40:15 CHOICE PT Extra Support 182cm wire ([id number]) opened to sterile field. 12:40:18 INFLATOR Merit BasixCompak (WR6639) opened to sterile field. 12:41:27 CPTXS wire advanced. 12:41:42 Heparin Bolus 4000 units I.V. was administered by Taras Paige RN; for anticoagulation; verified with dr amos 12:41:44 IV CATHETER 22g opened to sterile field. 12:41:53 Wire advanced across lesion. 12:42:49 Place stent Inflation Number: 1 A ORLANDO RX 3.5 x 12 stent ([id number]) was prepped and advanced across the Prox RCA. The stent was deployed at 15 WILBUR for 0:10 (min:sec). 12:43:13 Inflation number: 2 The stent balloon was then re-inflated across the Prox RCA to 21 WILBUR for 0:10 (min:sec). 12:43:14 Integrilin (Bolus 2mg/ml) 8.5 ml I.V. was administered by Taras Paige RN; for antiplatelet therapy; wasted 1.5 ml of vial 12:45:51 Stent catheter was removed intact over wire. 12:45:51 Wire removed. 12:45:52 Guide catheter removed. 12:45:57 TR BAND Standard ([id number]) opened to sterile field. 12:46:12 Sheath removed intact; hemostasis achieved with Mechanical Compression to the Right Radial artery. 12:46:14 Procedure ended.(Physican Out) 12:46:31 Fluoroscopy time 04.20 minutes. 12:46:35 Fluoroscopy dose: 816 mGy 12:46:35 Flurop Dose total: 816 12:46:38 Contrast amount:Isovue 300 73ml. 12:46:39 Sharps counted by scrub and verified by R.N. 12:46:42 TR band inflated with 11cc of air. 12:46:43 Insertion/operative site no bleeding no hematoma. 12:46:45 Post Procedure Pulses reassessed and unchanged 12:46:48 Post-procedure physical assessment completed. ASA score P 2 - A patient with mild systemic disease as per Adis Amos MD. 12:46:56 Post procedure rhythm: unchanged. 12:47:02 Estimated blood loss: 10 ml 12:47:04 Post procedure instruction explained to patient.Patient verbalizes understanding. 12:47:04 Patient needs reinforcement of post procedure teaching. 12:47:12 Procedure type changed to Cath procedure, Diagnostic procedure, LHC, LHC w/Coronaries, PCI procedure, Coronary Stent, Coronary Stent Initial 12:47:13 Procedure and supply charges have been captured, reviewed, submitted and are correct. 12:47:16 Procedure Complication : No complications 12:48:08 Vital chart was stopped 12:48:08 See physician's report for complete and final results. 12:48:10 Report given to PCU. 12:48:13 Patient transfered to PCU with Bed. 12:49:08 Plavix 600 mg P.O. was administered by Taras Paige RN; for antiplatelet therapy; 12:50:18 Procedure ended. 12:50:18 Full Disclosure recording stopped 12:50:21 End room use (Document Last) Intervention Summary Intervention Notes Time ActionType Lesion and Equipment Used Action# Pressure Duration Attributes 12:42:49 Place stent Prox RCA ORLANDO RX 3.5 x 1 15 00:10 12 stent ([id number]) 12:43:13 Reinflate Prox RCA ORLANDO RX 3.5 x 2 21 00:10 stent 12 stent balloon ([id number]) Device Usage Item Name Manufacture Quantity Catalog Number Hospital Part Current M inimal Lot# / Charge Number Stock Stock Serial# Code Tegaderm 4 x 4 3M 1 [id number] 658302 255179 130290 5 (1626W) ACIST Hand Acist 1 87965 537144 198551 877985 5 Control Medical (12909) Systems Inc ACIST Manifold Acist 1 39608 468320 668958 733412 5 (79231) Medical Systems Inc ACIST Syringe Acist 1 90521 454048 232485 803767 2 0 (00679) Medical Systems Inc Medline Cath Medline 1 [id number] 603097 92217 758581 5 Pack ([id number]) Bag Decanter Microtek 1 2001S 596365 51209 524309 5 (2001S) Medical Inc. DIAGNOSTIC St [place] 1 856772 125303 809152 547330 3 0 WIRE .035 260cm J wire (698809) MBrace Wrist Advanced 1 140-0250-00 328503 25298 691969 5 Support Vascular ([id number]) Dynamics SHEATH 6FR Terumo 1 [id number] 667469 610112 799262 5 Slender (80-1060) DIAGNOSTIC Terumo 1 40-5013 447388 055811 670686 5 Northwood 110cm 5 Fr catheter (329111) GUIDE 6FR AR Medtronic 1 [id number] 328847 50708 604025 1 2.0 SH catheter ([id number]) CHOICE PT Bellevue 1 [id number] 346227 159561 808665 5 Extra Support Scientific 182cm wire ([id number]) INFLATOR Merit Merit 1 QU5551 750867 429469 832886 1 5 EasyPropertyalShiftPlanning (NF4515) IV CATHETER B. Lewis 1 0361738-82 440496 942485 594797 5 22g ORLANDO RX 3.5 x Medtronic 1 [id number] 983842 0532005 610678 5 [id number] 12 stent ([id number]) TR BAND Terumo 1 [id number] 641205 827396 572086 4 0 Standard ([id number]) Signature Audit Archbold Stage Time Signature Unsigned Intra-Procedure 09/27/2018 Yunier Loza 12:50:35 PM RT(R) Signatures Monitor : Yunier Loza RT Signature : Date : Time : [place] [id number]
[2018-09-26 08:28] VITALS: BP 165/67
[2018-09-26 08:46] LABS: ALBUMIN 2.7 g/dL (3.4-5.0); ALKALINE PHOSPHATASE 78 U/L (46-116); ALT (SGPT) 47 U/L (10-68); BILIRUBIN - TOTAL 0.71 mg/dL (0.2-1.3); CALC OSMOLALITY 278 mosm/kg (275-300); CALCIUM 8.9 mg/dL (8.5-10.1); CARBON DIOXIDE 24.3 mmol/L (21.0-32.0); CHLORIDE - SERUM 108 mmol/L (98-107); CREATININE - SERUM 1.3 mg/dL (0.6-1.3); GLUCOSE 73 mg/dL (74-106); POTASSIUM - SERUM 4.3 mmol/L (3.5-5.1); PROTEIN - SERUM 6.1 g/dL (6.4-8.2); SODIUM 138 mmol/L (136-145); UREA NITROGEN 24 mg/dL (7-18); eGFR NON AFRICAN AMERICAN 55 mL/min (90-120)
[2018-09-26 08:51] LABS: BASOPHILS 0 % (0-2); EOSINOPHILS 0.9 % (0-7); HEMATOCRIT 35.8 % (42.0-54.0); HEMOGLOBIN 11.6 g/dL (13.5-17.5); IMMATURE GRANULOCYTES 0.2 % (0-5); LYMPHOCYTES 37.3 % (15-50); MCH 29.9 pg (26.0-34.0); MCHC 32.4 g/dL (31.0-37.0); MCV 92.3 fL (80.0-100.0); MEAN PLATELET VOLUME 10.2 fL (7.4-10.4); MONOCYTES 8.3 % (2-11); NEUTROPHILS 53.3 % (40-80); RBC 3.88 10x6/uL (4.20-6.10); RDW 14.9 % (11.5-14.5); WBC 5.8 10x3/uL (4.8-10.8)
[2018-09-26 08:55] LABS: APTT 29.8 SECONDS (22.8-39.4); INR 1.36 (0.85-1.17); PROTIME 16.2 SECONDS (11.6-15.0)
[2018-09-26 08:56] LABS: PLATELET COUNT 168 10x3/uL (130-400)
[2018-09-26 09:00] LABS: CKMB 2.5 U/L (0.0-3.6); CREATINE KINASE 79 UL (21-232); PRO BNP 23565 pg/mL (0-450)
[2018-09-26 09:01] LABS: TROPONIN-I 0.072 ng/mL (0.000-0.060)
--- NOTE | 2018-09-26 09:03 | NUR ---
LAB CALLED WITH AN ELEVATED TRIPONIN, 0.[address] LEVY.
[2018-09-26 09:55] VITALS: BP 214/101
--- NOTE | 2018-09-26 09:56 | NUR ---
ASSIST PT UP TO VOID, 300CC OUT. AM MEAL SERVED AT THIS TIME.
--- NOTE | 2018-09-26 10:07 | NUR ---
DR. YBARRA HERE TO SEE PT.
--- NOTE | 2018-09-26 10:24 | NUR ---
ECHO AT THIS TIME, PT VOIDED 300CC.
--- NOTE | 2018-09-26 10:33 | NUR ---
ORDERS FOR NORVASC , IMDUR AND LOPRESSER ARE HELD DUE TO ALREADY HAVE GIVEN PT HYDRALIZINE AND CLONIDINE.
--- NOTE | 2018-09-26 10:34 | NUR ---
BROVANA AND LIPITOR ARE NOT AVAILABLE IM ER, PHARMACY NOTIFIED
--- NOTE | 2018-09-26 10:40 | NUR ---
TRANSFER FROM ER BY STRETCHER. OREINTED TO ROOM. CALL LIGHT IN REACH. WILL CONT. PLAN OF CARE.
[2018-09-26] MEDS ORDERED: GLUCOTROL 5 MG T5 MG PO (10:52)
[2018-09-26] MEDS ORDERED: LISINOPRIL10 MG PO (10:54)
[2018-09-26 11:01] VITALS: BP 155/67; BMI 30.4
[2018-09-26 12:20] VITALS: BP 108/54
--- NOTE | 2018-09-26 14:43 | NUR ---
ROUTINE UD DCD. STATES HE ONLY TAKES PRN.
--- NOTE | 2018-09-26 15:01 | NUR ---
EKG COMPLETED ORDERED.
[2018-09-26 15:02] LABS: CKMB 2.3 U/L (0.0-3.6); CREATINE KINASE 72 UL (21-232)
[2018-09-26 15:07] LABS: TROPONIN-I 0.067 ng/mL (0.000-0.060)
[2018-09-26 15:56] VITALS: BP 156/61
[2018-09-26 20:00] VITALS: BP 154/59
--- NOTE | 2018-09-26 20:20 | NUR ---
INITIAL ROUNDS AND ASSESSMENT COMPLETED. PT ALERT/ORIENTED AND ASSISTED UP TO VOID IN URINAL DURING ASSESSMENT. INSTRUCTED ON IMPORTANCE OF ACCURATE I&O. SALINE LOCK TO LFA. PANKAJ ALARM IN PLACE. SLIGHT SOB WITH THE EXERTION OF STANDING UP TO VOID. ON ROOM AIR. MONITOR AND CPOC.
[2018-09-26 20:24] LABS: CREATINE KINASE 68 UL (21-232)
[2018-09-26 20:26] LABS: TROPONIN-I 0.062 ng/mL (0.000-0.060)
--- NOTE | 2018-09-26 21:14 | NUR ---
BEDTIME MEDS GIVEN. FSBS 129. CONTINUING TO ASSIST PT UP TO VOID WHEN NEEDED. PANKAJ ALARM IN PLACE.
[2018-09-27] VITALS: BP 162/59
--- NOTE | 2018-09-27 01:42 | NUR ---
RESTING IN BED WITH NO DISTRESS. CALL LIGHT IN REACH. MONITOR AND CPOC.
[2018-09-27 02:34] LABS: BASOPHILS 0 % (0-2); EOSINOPHILS 1.5 % (0-7); HEMATOCRIT 34.2 % (42.0-54.0); HEMOGLOBIN 11.1 g/dL (13.5-17.5); IMMATURE GRANULOCYTES 0.2 % (0-5); LYMPHOCYTES 38.5 % (15-50); MCH 29.8 pg (26.0-34.0); MCHC 32.5 g/dL (31.0-37.0); MCV 91.9 fL (80.0-100.0); MEAN PLATELET VOLUME 10.1 fL (7.4-10.4); MONOCYTES 12.2 % (2-11); NEUTROPHILS 47.6 % (40-80); PLATELET COUNT 160 10x3/uL (130-400); RBC 3.72 10x6/uL (4.20-6.10); RDW 14.8 % (11.5-14.5); WBC 5.5 10x3/uL (4.8-10.8)
[2018-09-27 02:57] LABS: ALBUMIN 2.7 g/dL (3.4-5.0); ALKALINE PHOSPHATASE 74 U/L (46-116); ALT (SGPT) 38 U/L (10-68); BILIRUBIN - TOTAL 0.54 mg/dL (0.2-1.3); CALC OSMOLALITY 289 mosm/kg (275-300); CHLORIDE - SERUM 107 mmol/L (98-107); CKMB 1.9 U/L (0.0-3.6); CREATINE KINASE 56 UL (21-232); CREATININE - SERUM 1.5 mg/dL (0.6-1.3); GLUCOSE 109 mg/dL (74-106); POTASSIUM - SERUM 3.9 mmol/L (3.5-5.1); PROTEIN - SERUM 5.8 g/dL (6.4-8.2); SODIUM 142 mmol/L (136-145); UREA NITROGEN 28 mg/dL (7-18); eGFR NON AFRICAN AMERICAN 47 mL/min (90-120)
[2018-09-27 02:58] LABS: CARBON DIOXIDE 30.6 mmol/L (21.0-32.0)
[2018-09-27 02:59] LABS: TROPONIN-I 0.076 ng/mL (0.000-0.060)
[2018-09-27 03:00] VITALS: BP 198/78
--- NOTE | 2018-09-27 07:30 | NUR ---
RECEIVED PT IN BED AAOX4 RESP UNLABORED DENIES ANY NEEDS OR DISCOMFORT AT THIS TIME
[2018-09-27 08:44] VITALS: BP 181/70
[2018-09-27 11:15] VITALS: Ht 172.7 cm; Wt 90.7 kg
--- NOTE | 2018-09-27 12:00 | NUR ---
TO POWER DISTRIBUTOR VIA BED WITH STAFF
--- NOTE | 2018-09-27 12:45 | NUR ---
RECEIVED PT BACK FROM LAN SPECIALIST VIA BED VSS TR BAND/BRACE INTACT TO RT WRIST PPPX4 NAD NOTED WILL CONTINUE TO MONITOR
[2018-09-27 17:28] VITALS: BP 172/69
[2018-09-27 19:35] VITALS: BP 163/68
--- NOTE | 2018-09-27 20:11 | NUR ---
RECIEVED UP IN BED WITH EYES CLOSED. EASILY AROUSES WITH VERBAL STIMULI. ORIENTED X4. DINNER AT BEDSIDE STILL COVERED UP. ASKED IF HE WAS HUNGRY AND STATED HE COULD EAT A FEW BITES. WARMED FOOD AND SAT PT UP FOR MEAL. TR BAND STILL ON RIGHT WRIST. DEFLATED AT THIS TIME. WILL REMOVE WHEN FINISHED EATING. TELEMETRY IN PLACE AND IVTO LEFT FA SL.
[2018-09-28] VITALS: BP 107/43
[2018-09-28 04:00] VITALS: BP 119/44
--- NOTE | 2018-09-28 07:30 | NUR ---
RECEIVED PT IN BED EYES CLOSED RESP UNLABORED SKIN W/D COLOR WNL BRUISING NOTED TO RT WRIST WILL CONTINUE TO MONITOR
[2018-09-28 09:25] VITALS: BP 125/60
--- NOTE | 2018-09-28 12:01 | NUR ---
FSBS 144
[2018-09-28 14:03] VITALS: BP 112/62
--- NOTE | 2018-09-28 16:59 | NUR ---
FSBS 139
[2018-09-28 20:00] VITALS: BP 127/60
--- NOTE | 2018-09-28 20:00 | NUR ---
INITIAL ROUNDS AND ASSESSMENT COMPLETED. PT RESTING IN BED. ALERT/ORIENTED. READING A NOVEL. SR PER TELEMETRY. O2 @ 2L/NC WITH NONLABORED RESPIRATIONS. PT TEACHING ON NPO AFTER MIDNIGHT FOR HEART CATH IN AM. PT IS HOPING TO BE ABLE TO GO HOME AFTER CATH IS DONE TOMORROW. CALL LIGHT IN REACH. MONITOR AND CPOC.
--- NOTE | 2018-09-28 21:38 | NUR ---
BEDTIME MEDS GIVEN. FSBS 166. NO SLIDING SCALE INSULIN GIVEN SINCE PT WILL BE NPO AT MIDNIGHT. PT C/O BACK PAIN. MEDICATED WITH NORCO TAB X 1 FOR BACK PAIN AND PT PULLED UP AND REPOSITIONED FOR OPTIMAL COMFORT. CALL LIGHT IN REACH. PT PLANS TO READ FOR A SHORT WHILE AND THEN SLEEP.
[2018-09-29] VITALS: BP 118/58
--- NOTE | 2018-09-29 03:56 | NUR ---
PT AWAKE,VOICING NO NEEDS.NPO FOR AM HEART CATH. MONITOR AND CPOC.
[2018-09-29 04:00] VITALS: BP 132/60
[2018-09-29 08:55] VITALS: BP 165/64
--- NOTE | 2018-09-29 09:22 | NUR ---
LEAVING FOR SUPERVISOR LOADING BY BED. WILL CONT. PLAN OF CARE.
--- NOTE | 2018-09-29 10:15 | NUR ---
PT RECEIVED FROM ERP SPECIALIST POST PROCEDURE FOR RECOVERY. PT SLEEPING COMFORTABLY. 6FR EXOCELE TO R GROIN, DRESSING CDI NO BLEEDING OR SWELLING NOTED. R LEG PINK AND WARM, PEDAL PULSES PALPABLE. HR NSR RATE 71, BP 150/76, O2 SAT 99 ON 1.5L O2 VIA NC. CALL LIGHT IN REACH. IV PATENT INFUSING VIA ORDERS
[2018-09-29] MEDS ORDERED: PLAVIX75 MG PO (10:21)
[2018-09-29] MEDS ORDERED: LISINOPRIL40 MG PO (10:22)
[2018-09-29] MEDS ORDERED: PROCARDIA10 MG PO (10:23)
[2018-09-29] MEDS ORDERED: LOPRESSOR25 MG PO (10:24)
--- NOTE | 2018-09-29 10:30 | NUR ---
PT RESTING W EYES CLOSED, R GROIN SOFT, DRESSING CDI NO BLEEDING OR SWELLING NOTED. CALL LIGHT IN REACH. VSS.
[2018-09-29] MEDS ORDERED: PROCARDIA XL PO (10:45)
--- NOTE | 2018-09-29 11:00 | NUR ---
PT STILL SLEEPING, GROIN SOFT NO BLEEDING OR SWELLING. PEDAL PULSES PALPABLE. VSS.
--- NOTE | 2018-09-29 11:01 | MORECARE ---
CASE MANAGEMENT DISCHARGE SUMMARY PATIENT: LATASHA MOORE UNIT: [id number] ADM DATE: 09/26/18 AGE: 88 : 30 SEX: M ROOM/BED: D.CL10 AUTHOR: BRYCE OSBORNE PHYSICIAN: REFERRING PHYSICIAN: ELSY YBARRA MD DATE OF SERVICE: 09/29/18 Discharge Plan Patient Name: [facility]HA MOORE [facility] [facility] 1930 [facility] Disposition[facility] Anticipated Discharge Date: 09/30/18 Discharge Date: Expected LOS: 4 Initial Reviewer: [email or web address] Initial Review Date: 09/26/2018 Generated: 09/29/18 12:01 pm Patient Name: LATASHA MOORE Page 05249 at 1101 All edits/amendments must be made on the electronic document DICTATION DATE: 09/29/18 1100 TELEGRAPHIC TYPEWRITER INSTALLER: ALEJANDRA 09/29/18 1100 RPT#: [id number] DC DATE: STATUS: ADM IN [facility] [address] [place] [address] END OF REPORT
--- NOTE | 2018-09-29 11:11 | MORECARE ---
CASE MANAGEMENT DISCHARGE SUMMARY PATIENT: LATASHA MOORE UNIT: [id number] ADM DATE: 09/26/18 AGE: 88 : 30 SEX: M ROOM/BED: D.CL10 AUTHOR: BRYCE OSBORNE PHYSICIAN: REFERRING PHYSICIAN: ELSY YBARRA MD DATE OF SERVICE: 09/29/18 Discharge Plan Patient Name: LATASHA MOORE Facility: [facility]:[place] : 1930 Planned Disposition: [facility] Facility Anticipated Discharge Date: 09/30/18 Discharge Date: Expected LOS: 4 Initial Reviewer: [email or web address] Initial Review Date: 09/26/2018 Generated: 09/29/18 12:11 pm DCPIA - Discharge Planning Initial Assessment Updated by [email or web address]: Kristian Antonio on 09/29/18 11:07 am * Is the patient Alert and Oriented? Yes * How many steps to enter\exit or inside your home? NONE * PCP DR. ROTHMAN * Pharmacy [facility] * Preadmission Environment Home with Family * ADLs Partial Dependent * Partial ADLs (Assistance needed) Bathing Medication Management Transfers * Equipment Glucometer Nebulizer * Other Equipment [employer] - MEDICAL EQUIPMENT PROVIDER * List name and contact numbers for known caregivers / representatives who currently or will assist patient after discharge: KELLY MOORE, SPOUSE, KHUSHBOO RUSSELL, DTR, * Verbal permission to speak to the caregivers and representatives has been obtained from the patient. N/A * Community resources currently utilized Home Health * Please name any agencies selected above. [facility] * Additional services required to return to the preadmission environment? Yes * Can the patient safely return to the preadmission environment? Yes * Has this patient been hospitalized within the prior 30 days at any hospital? No Last DP export: 09/29/18 10:01 am Patient Name: LATASHA MOORE Page 76023 at 1111 All edits/amendments must be made on the electronic document DICTATION DATE: 09/29/18 1111 MINE ENGINEERING SUPERINTENDENT: ALEJANDRA 09/29/18 1111 RPT#: [id number] DC DATE: STATUS: ADM IN [facility] [address] [place] [address] END OF REPORT
--- NOTE | 2018-09-29 11:19 | MORECARE ---
CASE MANAGEMENT DISCHARGE SUMMARY PATIENT: LATASHA MOORE UNIT: [id number] ADM DATE: 09/26/18 AGE: 88 : 30 SEX: M ROOM/BED: D.2115 AUTHOR: [place],DOC PHYSICIAN: REFERRING PHYSICIAN: ELSY YBARRA MD DATE OF SERVICE: 09/29/18 Discharge Plan Patient Name: LATASHA MOORE Facility: [facility]:[place] : 1930 Planned Disposition: [facility] Facility Anticipated Discharge Date: 09/30/18 Discharge Date: Expected LOS: 4 Initial Reviewer: [email or web address] Initial Review Date: 09/26/2018 Generated: 09/29/18 12:19 pm Comments DCP- Discharge Planning Updated by [email or web address]: Kristian Antonio on 09/29/18 10:[address] Patient Name: LATASHA MOORE Admission Status: ER Accout number: [id number] Admission Date: 09-26-2018 : 1930 Admission Diagnosis:SHORTNESS OF BREATH Attending: SHAY YBARRA Current LOS: 3 Anticipated DC Date: 09-30-2018 Planned Disposition: [facility] Facility Primary Insurance: MEDICARE A & B Discharge Planning Comments: CM SPOKE TO BEDSIDE NURSE WHO INFORMED CM THAT PT HAS LEFT TO GO [facility] AND IS DISCHARGING TODAY FROM THERE; FAMILY IS STILL IN ROOM AND REPORT THEY CANNOT TAKE CARE OF PT AT HOME HE IS VERY WEAK. CM MET WITH PT'S DAUGHTER, KHUSHBOO RUSSELL AND SON RAYNA MOORE (T [phone]) IN ROOM TO DISCUSS DISCHARGE PLANNING AND NEEDS. DAUGHTER STATES PT LIVES AT HOME WITH HIS WHO HAS BEEN ASSISTING WITH GETTING UP, BUT HAS JUST REALLY BEEN STANDING BY WITH THE PHONE IN CASE SHE NEEDS TO CALL FOR HELP. SON AND DAUGHTER HAVE BEEN ASSITING WITH BATH, MEDICATION MANAGEMENT AND TRANSFERS IF PT IS NOT ABLE TO GET UP. PT HAS GLUCOMETER, NEBULIZER AND A BEDSIDE COMMODE FROM [employer]; THE BEDSIDE COMMODE IS OVER THE TOILET SO THAT PT CAN PUSH HIMSELF UP FROM THE HANDLES. PT'S SPOUSE IS SICK AND HAS BACK ISSUES AND CANNOT ASSIST PT NOW, PT IS REPORTELY TOO WEAK TO GO HOME. PT WAS IN REHAB AT [facility], HE JUST COPLETED ABOUT 30 DAYS OF REHAB ON 09-16-18 AND HAS MULTIPLE TRIPS TO HOSPITAL FOR FALLS AND ILLNESS. SON AND DAUGHTER WANT REHAB FOR PT. CM EXPLAINED REHAB PROVIDERS, LOCATIONS AND SERVICES. CM EXPLAINED THAT PT WILL HAVE TO BE WILLING TO GO TO REHAB AND THAT IF PT IS WILLING, THE DOCTOR WILL HAVE TO PROVIDE PHYSICAL THERAPY EVALUATION. 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 PT'S FAMILY REPORT PT IS TOO WEAK TO GO HOME AND WANT PT TO HAVE REHAB. PT WILL REQURE A PHYSICAL THERAPY EVALUATION TO ASSIST IN THIS EVALUATION AND REFERRALS IF NECESSARY. CM TO SPEAK TO PT AFTER HE RETURNS FROM OPTICAL SYSTEMS ENGINEER AND HAS RECOVERED ENOUGH TO PARTICIPATE IN ASSESSMENT AND DISCHARGE PLANNING. Equipment Lead: Kristian Antonio DCPIA - Discharge Planning Initial Assessment Updated by [email or web address]: Kristian Antonio on 09/29/18 11:07 am * Is the patient Alert and Oriented? Yes * How many steps to enter\exit or inside your home? NONE * PCP DR. ROTHMAN * Pharmacy [facility] * Preadmission Environment Home with Family * ADLs Partial Dependent * Partial ADLs (Assistance needed) Bathing Medication Management Transfers * Equipment Glucometer Nebulizer * Other Equipment [employer] - MEDICAL EQUIPMENT PROVIDER * List name and contact numbers for known caregivers / representatives who currently or will assist patient after discharge: KELLY MOORE, SPOUSE, KHUSHBOO RUSSELL, DTR, * Verbal permission to speak to the caregivers and representatives has been obtained from the patient. N/A * Community resources currently utilized Home Health * Please name any agencies selected above. [facility] * Additional services required to return to the preadmission environment? Yes * Can the patient safely return to the preadmission environment? Yes * Has this patient been hospitalized within the prior 30 days at any hospital? No Last DP export: 09/29/18 10:11 am Patient Name: LATASHA MOORE Page 52978 at 1119 All edits/amendments must be made on the electronic document DICTATION DATE: 09/29/18 1989 VP PLATFORMS: ALEJANDRA 09/29/18 1119 RPT#: [id number] DC DATE: STATUS: ADM IN [facility] [address] [place] [address] END OF REPORT
--- NOTE | 2018-09-29 11:23 | NUR ---
PT TRANSPORTED BACK TO [facility] VIA STRETCHER. REPORT CALLED TO TANISHA TALAVERA TO ASSUME CARE.
--- NOTE | 2018-09-29 11:38 | NUR ---
BACK FROM FINANCIAL SERVICES MANAGER. VS WNL. RIGHT GROIN STABLE WITHOUT BLEEDING OR HEMATOMA NOTED. WILL MONITOR.
[2018-09-29 12:36] VITALS: BP 156/74
--- NOTE | 2018-09-29 14:03 | NUR ---
BED REST UP. GROIN STABLE.
[2018-09-29 16:43] VITALS: BP 130/65
--- NOTE | 2018-09-29 17:45 | MORECARE ---
CASE MANAGEMENT DISCHARGE SUMMARY PATIENT: LATASHA MOORE UNIT: [id number] ADM DATE: 09/26/18 AGE: 88 : 30 SEX: M ROOM/BED: D.2115 AUTHOR: INDIA,DOC PHYSICIAN: REFERRING PHYSICIAN: ELSY YBARRA MD DATE OF SERVICE: 09/29/18 Discharge Plan Patient Name: LATASHA MOORE Facility: [facility]:[place] : 1930 Planned Disposition: Penitentiary Facility Anticipated Discharge Date: 09/30/18 Discharge Date: Expected LOS: 4 Initial Reviewer: [id number] Initial Review Date: 09/26/2018 Generated: 09/29/18 6:45 pm Comments DCP- Discharge Planning Updated by [id number]: Kristian Antonio on 09/29/18 4:[address] Patient Name: LATASHA MOORE Admission Status: ER Accout number: [id number] Admission Date: 09-26-2018 : 1930 Admission Diagnosis:SHORTNESS OF BREATH Attending: SHAY YBARRA Current LOS: 3 Anticipated DC Date: 09-30-2018 Planned Disposition: Penitentiary Facility Primary Insurance: MEDICARE A & B PLANNED EXTERNAL PROVIDER: [facility], MEDICARE REHAB BED Discharge Planning Comments: CM SPOKE TO PT, SON AND DAUGHTER IN ROOM. PT PROVIDED PERMISSION FOR CM TO SPEAK TO HIM IN FRONT OF HIS CHILDREN AND TO DISCUSS DISCHARGE PLANNING AND NEEDS WITH THEM. CM REVIEWED THERAPY NOTES AND RECOMMENDED REHAB FOR PT. PT DISCUSSED POSSIBLY GOING TO [facility] FOR RESPITE CARE WITH HOME HEALTH. PT DECIDED HE WANTS REHAB AT [place] AGAIN. CHOICE LETTER SIGNED. PT AND FAMILY UNDERSTAND PT WILL DISCHARGE TOMORROW, SOMEWHERE. CM TO SEND REFERRAL TO [facility] SOON POSSIBLE TOMORROW MORNING, 09-30-18. Local Delivery Truck Driver: Kristian Antonio DCP- Discharge Planning Updated by [id number]: Kristian Antonio on 09/29/18 10:[address] Patient Name: LATASHA MOORE Admission Status: ER Accout number: [id number] Admission Date: 09-26-2018 : 1930 Admission Diagnosis:SHORTNESS OF BREATH Attending: SHAY YBARRA Current LOS: 3 Anticipated DC Date: 09-30-2018 Planned Disposition: Penitentiary Facility Primary Insurance: MEDICARE A & B Discharge Planning Comments: CM SPOKE TO BEDSIDE NURSE WHO INFORMED CM THAT PT HAS LEFT TO GO TO [place] AND IS DISCHARGING TODAY FROM THERE; FAMILY IS STILL IN ROOM AND REPORT THEY CANNOT TAKE CARE OF PT AT HOME HE IS VERY WEAK. CM MET WITH PT'S DAUGHTER, KHUSHBOO RUSSELL AND SON RAYNA MOORE (T [phone]) IN ROOM TO DISCUSS DISCHARGE PLANNING AND NEEDS. DAUGHTER STATES PT LIVES AT HOME WITH HIS WHO HAS BEEN ASSISTING WITH GETTING UP, BUT HAS JUST REALLY BEEN STANDING BY WITH THE PHONE IN CASE SHE NEEDS TO CALL FOR HELP. SON AND DAUGHTER HAVE BEEN ASSITING WITH BATH, MEDICATION MANAGEMENT AND TRANSFERS IF PT IS NOT ABLE TO GET UP. PT HAS GLUCOMETER, NEBULIZER AND A BEDSIDE COMMODE FROM [employer]; THE BEDSIDE COMMODE IS OVER THE TOILET SO THAT PT CAN PUSH HIMSELF UP FROM THE HANDLES. PT'S SPOUSE IS SICK AND HAS BACK ISSUES AND CANNOT ASSIST PT NOW, PT IS REPORTELY TOO WEAK TO GO HOME. PT WAS IN REHAB AT [facility], HE JUST COPLETED ABOUT 30 DAYS OF REHAB ON 09-16-18 AND HAS M[facility]IP[facility]IPS [facility]. SON AND DAUGHTER WANT REHAB FOR PT. CM EXPLAINED REHAB PROVIDERS, LOCATIONS AND SERVICES. CM EXPLAINED THAT PT WILL HAVE TO BE WILLING TO GO TO REHAB AND THAT IF PT IS WILLING, THE DOCTOR WILL HAVE TO PROVIDE PHYSICAL THERAPY EVALUATION. 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 PT'S FAMILY REPORT PT IS TOO WEAK TO GO HOME AND WANT PT TO HAVE REHAB. PT WILL REQURE A PHYSICAL THERAPY EVALUATION TO ASSIST IN THIS EVALUATION AND REFERRALS IF NECESSARY. CM TO SPEAK TO PT AFTER HE RETURNS FROM [place] AND HAS RECOVERED ENOUGH TO PARTICIPATE IN ASSESSMENT AND DISCHARGE PLANNING. Local Delivery Truck Driver: Kristian Antonio DCPIA - Discharge Planning Initial Assessment Updated by [id number]: Kristian Antonio on 09/29/18 11:07 am * Is the patient Alert and Oriented? Yes * How many steps to enter\exit or inside your home? NONE * PCP DR. ROTHMAN * Pharmacy [facility] * Preadmission Environment Home with Family * ADLs Partial Dependent * Partial ADLs (Assistance needed) Bathing Medication Management Transfers * Equipment Glucometer Nebulizer * Other Equipment [employer] - MEDICAL EQUIPMENT PROVIDER * List name and contact numbers for known caregivers / representatives who currently or will assist patient after discharge: KELLY MOORE, SPOUSE, KHUSHBOO RUSSELL, DTR, * Verbal permission to speak to the caregivers and representatives has been obtained from the patient. N/A * Community resources currently utilized Home Health * Please name any agencies selected above. [facility] * Additional services required to return to the preadmission environment? Yes * Can the patient safely return to the preadmission environment? Yes * Has this patient been hospitalized within the prior 30 days at any hospital? No Coverage Notice Reviewer: [id number] Kiera Antonio Notice Issued Date-Time: 09/29/2018 17:20 Notice Type: Patient Choice Letter Notice Delivered To: Patient Relationship to Patient: Screen Printing Equipment Setter Name: Delivery Method: HAND - Hand Delivered Viviana Days: Prior Verbal Notification: Recipient Understood Notice: Yes Recipient Signature: Yes Med Rec Note Co-signed by Attending: Coverage Notice Comment: OLMOS KINCAID Last DP export: 09/29/18 10:19 am Patient Name: LATASHA MOORE Page [id number] at 1745 All edits/amendments must be made on the electronic document DICTATION DATE: 09/29/181744 QUALITY SYSTEMS ENGINEER: ALEJANDRA 09/29/181744 RPT#: [id number] DC DATE: STATUS: ADM IN [facility] [address] [place] [address] END OF REPORT
--- NOTE | 2018-09-29 19:11 | NUR ---
RESUMING PATIENT CARE. PATIENT IS ALERT AND ORIENTED RESTING COMFORTABLY IN BED. RESPIRATIONS ARE EVEN AND UNLABORED. NO S/S OF DISTRESS. NO C/O PAIN. DENIES NEEDS. CALL IGHT WITHIN REACH. WILL CPOC.
[2018-09-29 20:18] VITALS: BP 141/64
[2018-09-30 00:32] VITALS: BP 131/68
[2018-09-30 04:09] VITALS: BP 149/68
[2018-09-30 09:16] VITALS: BP 145/75
--- NOTE | 2018-09-30 10:17 | MORECARE ---
CASE MANAGEMENT DISCHARGE SUMMARY PATIENT: LATASHA MOORE UNIT: [id number] ADM DATE: 09/26/18 AGE: 88 : 30 SEX: M ROOM/BED: D.2115 AUTHOR: INDIA,DOC PHYSICIAN: REFERRING PHYSICIAN: ELSY YBARRA MD DATE OF SERVICE: 09/30/18 Discharge Plan Patient Name: LATASHA MOORE Facility: [facility]:[place] : 1930 Planned Disposition: Penitentiary Facility Anticipated Discharge Date: 09/30/18 Discharge Date: Expected LOS: 4 Initial Reviewer: [id number] Initial Review Date: 09/26/2018 Generated: 09/30/18 11:17 am Comments DCP- Discharge Planning Updated by [id number]: Kristian Antonio on 09/29/18 4:[address] Patient Name: LATASHA MOORE Admission Status: ER Accout number: [id number] Admission Date: 09-26-2018 : 1930 Admission Diagnosis:SHORTNESS OF BREATH Attending: SHAY YBARRA Current LOS: 3 Anticipated DC Date: 09-30-2018 Planned Disposition: Penitentiary Facility Primary Insurance: MEDICARE A & B PLANNED EXTERNAL PROVIDER: [facility], MEDICARE REHAB BED Discharge Planning Comments: CM SPOKE TO PT, SON AND DAUGHTER IN ROOM. PT PROVIDED PERMISSION FOR CM TO SPEAK TO HIM IN FRONT OF HIS CHILDREN AND TO DISCUSS DISCHARGE PLANNING AND NEEDS WITH THEM. CM REVIEWED THERAPY NOTES AND RECOMMENDED REHAB FOR PT. PT DISCUSSED POSSIBLY GOING TO [facility] FOR RESPITE CARE WITH HOME HEALTH. PT DECIDED HE WANTS REHAB AT [place] AGAIN. CHOICE LETTER SIGNED. PT AND FAMILY UNDERSTAND PT WILL DISCHARGE TOMORROW, SOMEWHERE. CM TO SEND REFERRAL TO [facility] SOON POSSIBLE TOMORROW MORNING, 09-30-18. Road Service Locksmith: Kristian Antonio DCP- Discharge Planning Updated by [id number]: Kristian Antonio on 09/29/18 10:[address] Patient Name: LATASHA MOORE Admission Status: ER Accout number: [id number] Admission Date: 09-26-2018 : 1930 Admission Diagnosis:SHORTNESS OF BREATH Attending: SHAY YBARRA Current LOS: 3 Anticipated DC Date: 09-30-2018 Planned Disposition: Penitentiary Facility Primary Insurance: MEDICARE A & B Discharge Planning Comments: CM SPOKE TO BEDSIDE NURSE WHO INFORMED CM THAT PT HAS LEFT TO GO TO [place] AND IS DISCHARGING TODAY FROM THERE; FAMILY IS STILL IN ROOM AND REPORT THEY CANNOT TAKE CARE OF PT AT HOME HE IS VERY WEAK. CM MET WITH PT'S DAUGHTER, KHUSHBOO RUSSELL AND SON RAYNA MOORE (T [phone]) IN ROOM TO DISCUSS DISCHARGE PLANNING AND NEEDS. DAUGHTER STATES PT LIVES AT HOME WITH HIS WHO HAS BEEN ASSISTING WITH GETTING UP, BUT HAS JUST REALLY BEEN STANDING BY WITH THE PHONE IN CASE SHE NEEDS TO CALL FOR HELP. SON AND DAUGHTER HAVE BEEN ASSITING WITH BATH, MEDICATION MANAGEMENT AND TRANSFERS IF PT IS NOT ABLE TO GET UP. PT HAS GLUCOMETER, NEBULIZER AND A BEDSIDE COMMODE FROM [employer]; THE BEDSIDE COMMODE IS OVER THE TOILET SO THAT PT CAN PUSH HIMSELF UP FROM THE HANDLES. PT'S SPOUSE IS SICK AND HAS BACK ISSUES AND CANNOT ASSIST PT NOW, PT IS REPORTELY TOO WEAK TO GO HOME. PT WAS IN REHAB AT [facility], HE JUST COPLETED ABOUT 30 DAYS OF REHAB ON 09-16-18 AND HAS MULTIPLE TRIPS [facility]. SON AND DAUGHTER WANT REHAB FOR PT. CM EXPLAINED REHAB PROVIDERS, LOCATIONS AND SERVICES. CM EXPLAINED THAT PT WILL HAVE TO BE WILLING TO GO TO REHAB AND THAT IF PT IS WILLING, THE DOCTOR WILL HAVE TO PROVIDE PHYSICAL THERAPY EVALUATION. 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 PT'S FAMILY REPORT PT IS TOO WEAK TO GO HOME AND WANT PT TO HAVE REHAB. PT WILL REQURE A PHYSICAL THERAPY EVALUATION TO ASSIST IN THIS EVALUATION AND REFERRALS IF NECESSARY. CM TO SPEAK TO PT AFTER HE RETURNS FROM [place] AND HAS RECOVERED ENOUGH TO PARTICIPATE IN ASSESSMENT AND DISCHARGE PLANNING. Road Service Locksmith: Kristian Antonio DCPIA - Discharge Planning Initial Assessment Updated by [id number]: Kristian Antonio on 09/29/18 11:07 am * Is the patient Alert and Oriented? Yes * How many steps to enter\exit or inside your home? NONE * PCP DR. ROTHMAN * Pharmacy [facility] * Preadmission Environment Home with Family * ADLs Partial Dependent * Partial ADLs (Assistance needed) Bathing Medication Management Transfers * Equipment Glucometer Nebulizer * Other Equipment [employer] - MEDICAL EQUIPMENT PROVIDER * List name and contact numbers for known caregivers / representatives who currently or will assist patient after discharge: KELLY MOORE, SPOUSE, KHUSHBOO RUSSELL, DTR, * Verbal permission to speak to the caregivers and representatives has been obtained from the patient. N/A * Community resources currently utilized Home Health * Please name any agencies selected above. [facility] * Additional services required to return to the preadmission environment? Yes * Can the patient safely return to the preadmission environment? Yes * Has this patient been hospitalized within the prior 30 days at any hospital? No External Providers External Provider: [facility] Next Contact Date: 09/30/2018 Service Request Date: Service Type: Resolution: Reviewer: Comments: Coverage Notice Reviewer: [id number] Kiera Antonio Notice Issued Date-Time: 09/29/2018 17:20 Notice Type: Patient Choice Letter Notice Delivered To: Patient Relationship to Patient: Smog Technician Name: Delivery Method: HAND - Hand Delivered Viviana Days: Prior Verbal Notification: Recipient Understood Notice: Yes Recipient Signature: Yes Med Rec Note Co-signed by Attending: Coverage Notice Comment: AMARILIS Michele DP export: 09/29/18 4:45 pm Patient Name: LATASHA MOORE Page [phone] at 1017 All edits/amendments must be made on the electronic document DICTATION DATE: 09/30/18 1016 ARCHIVES TECHNICIAN: ALEJANDRA 09/30/18 1016 RPT#: [id number] DC DATE: STATUS: ADM IN [facility] [address] [place] [address] END OF REPORT
--- NOTE | 2018-09-30 10:32 | MORECARE ---
CASE MANAGEMENT DISCHARGE SUMMARY PATIENT: LATASHA MOORE UNIT: [id number] ADM DATE: 09/26/18 AGE: 88 : 30 SEX: M ROOM/BED: D.2115 AUTHOR: INDIA,DOC PHYSICIAN: REFERRING PHYSICIAN: ELSY YBARRA MD DATE OF SERVICE: 09/30/18 Discharge Plan Patient Name: LATASHA MOORE Facility: [facility]:[place] : 1930 Planned Disposition: Senior Living Facility Anticipated Discharge Date: 09/30/18 Discharge Date: Expected LOS: 4 Initial Reviewer: [id number] Initial Review Date: 09/26/2018 Generated: 09/30/18 11:32 am Comments DCP- Discharge Planning Updated by [id number]: Kristian Antonio on 09/30/18 9:[address] Patient Name: LATASHA MOORE Encounter No: [id number] : 1930 Primary Insurance: MEDICARE A & B Anticipated DC Date: 09-30-2018 Planned Disposition: Senior Living Facility External Planned Provider: [facility], MEDICARE REHAB BED DCP follow-up note: CM FAXED REFERRAL TO [facility], . CM CALLED AND SPOKE TO SHAYE AT [facility], , REHAB BED AVAILABLE. CM EXPLAINED SITUATION AND DISCHARGE FROM HOSPITAL TODAY, REQUESTED REHAB ADMISSION TODAY. SHAYE ASSURED CM SHE WILL PROCESS AFTER HER MEETING THIS MORNING. CM NOTIFIED PT. IMPORTANT MESSAGE FROM MEDICARE PROVIDED AND EXPLAINED. CM WAITING ADMISSION DETERMINATION FROM [facility]. Kristian Antonio. CASE MANAGEMENT DCP- Discharge Planning Updated by [id number]: Kristian Antonio on 09/29/18 4:[address] Patient Name: LATASHA MOORE Admission Status: ER Accout number: [id number] Admission Date: 09-26-2018 : 1930 Admission Diagnosis:SHORTNESS OF BREATH Attending: SHAY YBARRA Current LOS: 3 Anticipated DC Date: 09-30-2018 Planned Disposition: Senior Living Facility Primary Insurance: MEDICARE A & B PLANNED EXTERNAL PROVIDER: [facility], MEDICARE REHAB BED Discharge Planning Comments: CM SPOKE TO PT, SON AND DAUGHTER IN ROOM. PT PROVIDED PERMISSION FOR CM TO SPEAK TO HIM IN FRONT OF HIS CHILDREN AND TO DISCUSS DISCHARGE PLANNING AND NEEDS WITH THEM. CM REVIEWED THERAPY NOTES AND RECOMMENDED REHAB FOR PT. PT DISCUSSED POSSIBLY GOING TO [facility] FOR RESPITE CARE WITH HOME HEALTH. PT DECIDED HE WANTS REHAB AT [facility] AGAIN. CHOICE LETTER SIGNED. PT AND FAMILY UNDERSTAND PT WILL DISCHARGE TOMORROW, SOMEWHERE. CM TO SEND REFERRAL TO [facility] SOON POSSIBLE TOMORROW MORNING, 09-30-18. Service Architect: Kristian Antonio DCP- Discharge Planning Updated by [id number]: Kristian Antonio on 09/29/18 10:[address] Patient Name: LATASHA MOORE Admission Status: ER Accout number: [id number] Admission Date: 09-26-2018 : 1930 Admission Diagnosis:SHORTNESS OF BREATH Attending: SHAY YBARRA Current LOS: 3 Anticipated DC Date: 09-30-2018 Planned Disposition: Senior Living Facility Primary Insurance: MEDICARE A & B Discharge Planning Comments: CM SPOKE TO BEDSIDE NURSE WHO INFORMED CM THAT PT HAS LEFT TO GO TO [facility] AND IS DISCHARGING TODAY FROM THERE; FAMILY IS STILL IN ROOM AND REPORT THEY CANNOT TAKE CARE OF PT AT HOME HE IS VERY WEAK. CM MET WITH PT'S DAUGHTER, KHUSHBOO RUSSELL AND SON RAYNA MOORE (T [phone]) IN ROOM TO DISCUSS DISCHARGE PLANNING AND NEEDS. DAUGHTER STATES PT LIVES AT HOME WITH HIS WHO HAS BEEN ASSISTING WITH GETTING UP, BUT HAS JUST REALLY BEEN STANDING BY WITH THE PHONE IN CASE SHE NEEDS TO CALL FOR HELP. SON AND DAUGHTER HAVE BEEN ASSITING WITH BATH, MEDICATION MANAGEMENT AND TRANSFERS IF PT IS NOT ABLE TO GET UP. PT HAS GLUCOMETER, NEBULIZER AND A BEDSIDE COMMODE FROM [employer]; THE BEDSIDE COMMODE IS OVER THE TOILET SO THAT PT CAN PUSH HIMSELF UP FROM THE HANDLES. PT'S SPOUSE IS SICK AND HAS BACK ISSUES AND CANNOT ASSIST PT NOW, PT IS REPORTELY TOO WEAK TO GO HOME. PT WAS IN REHAB AT [facility], HE JUST COPLETED ABOUT 30 DAYS OF REHAB ON 09-16-18 AND HAS MULTIPLE TRIPS TO [facility]. SON AND DAUGHTER WANT REHAB FOR PT. CM EXPLAINED REHAB PROVIDERS, LOCATIONS AND SERVICES. CM EXPLAINED THAT PT WILL HAVE TO BE WILLING TO GO TO REHAB AND THAT IF PT IS WILLING, THE DOCTOR WILL HAVE TO PROVIDE PHYSICAL THERAPY EVALUATION. 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 PT'S FAMILY REPORT PT IS TOO WEAK TO GO HOME AND WANT PT TO HAVE REHAB. PT WILL REQURE A PHYSICAL THERAPY EVALUATION TO ASSIST IN THIS EVALUATION AND REFERRALS IF NECESSARY. CM TO SPEAK TO PT AFTER HE RETURNS [place] AND HAS RECOVERED ENOUGH TO PARTICIPATE IN ASSESSMENT AND DISCHARGE PLANNING. Service Architect: Kristian Antonio DCPIA - Discharge Planning Initial Assessment Updated by [id number]: Kristian Antonio on 09/29/18 11:07 am * Is the patient Alert and Oriented? Yes * How many steps to enter\exit or inside your home? NONE * PCP DR. ROTHMAN * Pharmacy [facility] * Preadmission Environment Home with Family * ADLs Partial Dependent * Partial ADLs (Assistance needed) Bathing Medication Management Transfers * Equipment Glucometer Nebulizer * Other Equipment [employer] - MEDICAL EQUIPMENT PROVIDER * List name and contact numbers for known caregivers / representatives who currently or will assist patient after discharge: OCTAVIATRICIA NARAYANANEY, SPOUSE, KHUSHBOO RUSSELL, DTR, * Verbal permission to speak to the caregivers and representatives has been obtained from the patient. N/A * Community resources currently utilized Home Health * Please name any agencies selected above. [facility] * Additional services required to return to the preadmission environment? Yes * Can the patient safely return to the preadmission environment? Yes * Has this patient been hospitalized within the prior 30 days at any hospital? No Coverage Notice Reviewer: [id number] - Kristian Antonio Notice Issued Date-Time: 09/29/2018 17:20 Notice Type: Patient Choice Letter Notice Delivered To: Patient Relationship to Patient: Refrigerating Technician Name: Delivery Method: HAND - Hand Delivered Viviana Days: Prior Verbal Notification: Recipient Understood Notice: Yes Recipient Signature: Yes Med Rec Note Co-signed by Attending: Coverage Notice Comment: OLMOS KINCAID Last DP export: 09/30/18 9:17 am Patient Name: LATASHA MOORE Page [phone] at 1032 All edits/amendments must be made on the electronic document DICTATION DATE: 09/30/18 103 HOME RESTORATION SERVICE CLEANER: ALEJANDRA 09/30/18 1032 RPT#: [id number] DC DATE: STATUS: ADM IN [facility] [address] [place] [address] END OF REPORT
--- NOTE | 2018-09-30 12:17 | MORECARE ---
CASE MANAGEMENT DISCHARGE SUMMARY PATIENT: LATASHA MOORE UNIT: [id number] ADM DATE: 09/26/18 AGE: 88 : 30 SEX: M ROOM/BED: D.2115 AUTHOR: INDIA,DOC PHYSICIAN: REFERRING PHYSICIAN: ELSY YBARRA MD DATE OF SERVICE: 09/30/18 Discharge Plan Patient Name: LATASHA MOORE Facility: [facility]:[place] : 1930 Planned Disposition: Alf Facility Anticipated Discharge Date: 09/30/18 Discharge Date: Expected LOS: 4 Initial Reviewer: [id number] Initial Review Date: 09/26/2018 Generated: 09/30/18 1:16 pm Comments DCP- Discharge Planning Updated by [email or web address]: Kristian Antonio on 09/30/18 9:[address] Patient Name: LATASHA MOORE Encounter No: [id number] : 1930 Primary Insurance: MEDICARE A & B Anticipated DC Date: 09-30-2018 Planned Disposition: Alf Facility External Planned Provider: [facility], MEDICARE REHAB BED DCP follow-up note: CM FAXED REFERRAL TO [facility], . CM CALLED AND SPOKE TO SHAYE AT [facility], , REHAB BED AVAILABLE. CM EXPLAINED SITUATION AND DISCHARGE FROM HOSPITAL TODAY, REQUESTED REHAB ADMISSION TODAY. SHAYE ASSURED CM SHE WILL PROCESS AFTER HER MEETING THIS MORNING. CM NOTIFIED PT. IMPORTANT MESSAGE FROM MEDICARE PROVIDED AND EXPLAINED. CM WAITING ADMISSION DETERMINATION FROM [facility]. Kristian Antonio. CASE MANAGEMENT DCP- Discharge Planning Updated by [id number]: Kristian Antonio on 09/29/18 4:[address] Patient Name: LATASHA MOORE Admission Status: ER Accout number: [id number] Admission Date: 09-26-2018 : 1930 Admission Diagnosis:SHORTNESS OF BREATH Attending: SHAY YBARRA Current LOS: 3 Anticipated DC Date: 09-30-2018 Planned Disposition: Alf Facility Primary Insurance: MEDICARE A & B PLANNED EXTERNAL PROVIDER: [facility], MEDICARE REHAB BED Discharge Planning Comments: CM SPOKE TO PT, SON AND DAUGHTER IN ROOM. PT PROVIDED PERMISSION FOR CM TO SPEAK TO HIM IN FRONT OF HIS CHILDREN AND TO DISCUSS DISCHARGE PLANNING AND NEEDS WITH THEM. CM REVIEWED THERAPY NOTES AND RECOMMENDED REHAB FOR PT. PT DISCUSSED POSSIBLY GOING TO [facility] FOR RESPITE CARE WITH HOME HEALTH. PT DECIDED HE WANTS REHAB AT [facility] AGAIN. CHOICE LETTER SIGNED. PT AND FAMILY UNDERSTAND PT WILL DISCHARGE TOMORROW, SOMEWHERE. CM TO SEND REFERRAL TO [facility] SOON POSSIBLE TOMORROW MORNING, 09-30-18. Search And Rescue Officer: Kristian Antonio DCP- Discharge Planning Updated by [id number]: Kristian Antonio on 09/29/18 10:[address] Patient Name: LATASHA MOORE Admission Status: ER Accout number: [id number] Admission Date: 09-26-2018 : 1930 Admission Diagnosis:SHORTNESS OF BREATH Attending: SHAY YBARRA Current LOS: 3 Anticipated DC Date: 09-30-2018 Planned Disposition: Alf Facility Primary Insurance: MEDICARE A & B Discharge Planning Comments: CM SPOKE TO BEDSIDE NURSE WHO INFORMED CM THAT PT HAS LEFT TO GO TO [facility] AND IS DISCHARGING TODAY FROM THERE; FAMILY IS STILL IN ROOM AND REPORT THEY CANNOT TAKE CARE OF PT AT HOME HE IS VERY WEAK. CM MET WITH PT'S DAUGHTER, KHUSHBOO RUSSELL AND SON RAYNA MOORE (T [phone]) IN ROOM TO DISCUSS DISCHARGE PLANNING AND NEEDS. DAUGHTER STATES PT LIVES AT HOME WITH HIS WHO HAS BEEN ASSISTING WITH GETTING UP, BUT HAS JUST REALLY BEEN STANDING BY WITH THE PHONE IN CASE SHE NEEDS TO CALL FOR HELP. SON AND DAUGHTER HAVE BEEN ASSITING WITH BATH, MEDICATION MANAGEMENT AND TRANSFERS IF PT IS NOT ABLE TO GET UP. PT HAS GLUCOMETER, NEBULIZER AND A BEDSIDE COMMODE FROM [employer]; THE BEDSIDE COMMODE IS OVER THE TOILET SO THAT PT CAN PUSH HIMSELF UP FROM THE HANDLES. PT'S SPOUSE IS SICK AND HAS BACK ISSUES AND CANNOT ASSIST PT NOW, PT IS REPORTELY TOO WEAK TO GO HOME. PT WAS IN REHAB AT [facility], HE JUST COPLETED ABOUT 30 DAYS OF REHAB ON 09-16-18 AND HAS MULTIPLE TRIPS TO [facility]. SON AND DAUGHTER WANT REHAB FOR PT. CM EXPLAINED REHAB PROVIDERS, LOCATIONS AND SERVICES. CM EXPLAINED THAT PT WILL HAVE TO BE WILLING TO GO TO REHAB AND THAT IF PT IS WILLING, THE DOCTOR WILL HAVE TO PROVIDE PHYSICAL THERAPY EVALUATION. 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 PT'S FAMILY REPORT PT IS TOO WEAK TO GO HOME AND WANT PT TO HAVE REHAB. PT WILL REQURE A PHYSICAL THERAPY EVALUATION TO ASSIST IN THIS EVALUATION AND REFERRALS IF NECESSARY. CM TO SPEAK TO PT AFTER HE RETURNS FROM [employer] AND HAS RECOVERED ENOUGH TO PARTICIPATE IN ASSESSMENT AND DISCHARGE PLANNING. Search And Rescue Officer: Kristian Antonio DCPIA - Discharge Planning Initial Assessment Updated by [id number]: Kristian Antonio on 09/29/18 11:07 am * Is the patient Alert and Oriented? Yes * How many steps to enter\exit or inside your home? NONE * PCP DR. ROTHMAN * Pharmacy [facility] * Preadmission Environment Home with Family * ADLs Partial Dependent * Partial ADLs (Assistance needed) Bathing Medication Management Transfers * Equipment Glucometer Nebulizer * Other Equipment [employer] - MEDICAL EQUIPMENT PROVIDER * List name and contact numbers for known caregivers / representatives who currently or will assist patient after discharge: KELLY MOORE, SPOUSE, KHUSHBOO RUSSELL, DTR, * Verbal permission to speak to the caregivers and representatives has been obtained from the patient. N/A * Community resources currently utilized Home Health * Please name any agencies selected above. [facility] * Additional services required to return to the preadmission environment? Yes * Can the patient safely return to the preadmission environment? Yes * Has this patient been hospitalized within the prior 30 days at any hospital? No External Providers External Provider: [facility] Next Contact Date: 09/30/2018 Service Request Date: Service Type: Resolution: Reviewer: Comments: [facility] Next Contact Date: 09/30/2018 Service Request Date: Service Type: Resolution: Reviewer: Comments: Coverage Notice Reviewer: [id number] Kiera Antonio Notice Issued Date-Time: 09/29/2018 17:20 Notice Type: Patient Choice Letter Notice Delivered To: Patient Relationship to Patient: Clutch Specialist Name: Delivery Method: HAND - Hand Delivered Vviiana Days: Prior Verbal Notification: Recipient Understood Notice: Yes Recipient Signature: Yes Med Rec Note Co-signed by Attending: Coverage Notice Comment: AMARILIS KINCAID Reviewer: [id number] - Kristian Antonio Notice Issued Date-Time: 09/30/2018 10:30 Notice Type: IM Discharge Notice Notice Delivered To: Patient Relationship to Patient: Clutch Specialist Name: Delivery Method: HAND - Hand Delivered Viviana Days: Prior Verbal Notification: Recipient Understood Notice: Yes Recipient Signature: Yes Med Rec Note Co-signed by Attending: Coverage Notice Comment: Last DP export: 09/30/18 9:32 am Patient Name: LATASHA MOORE Page [id number] at 1217 All edits/amendments must be made on the electronic document DICTATION DATE: 09/30/181215 MANAGER ENVIRONMENTAL HEALTH: ALEJANDRA 09/30/18 1216 RPT#: [id number] DC DATE: STATUS: ADM IN [facility] [address] [place] [address] END OF REPORT
--- NOTE | 2018-09-30 12:26 | MORECARE ---
CASE MANAGEMENT DISCHARGE SUMMARY PATIENT: LATASHA MOORE UNIT: [id number] ADM DATE: 09/26/18 AGE: 88 : 30 SEX: M ROOM/BED: D.2115 AUTHOR: INDIA,DOC PHYSICIAN: REFERRING PHYSICIAN: ELSY YBARRA MD DATE OF SERVICE: 09/30/18 Discharge Plan Patient Name: LATASHA MOORE Facility: [facility]:[place] : 1930 Planned Disposition: Prison Facility Anticipated Discharge Date: 09/30/18 Discharge Date: Expected LOS: 4 Initial Reviewer: [id number] Initial Review Date: 09/26/2018 Generated: 09/30/18 1:26 pm Comments DCP- Discharge Planning Updated by [id number]: Kristian Antonio on 09/30/18 11:[address] Patient Name: LATASHA MOORE Encounter No: [id number] : 1930 Primary Insurance: MEDICARE A & B Anticipated DC Date: 09-30-2018 Planned Disposition: Prison Facility External Planned Provider: [facility], MEDICARE REHAB BED DCP follow-up note: CM RECEIVED CALL FROM SHAYE OF [facility] WHO DECLINED PT WITH NO REASON GIVEN. CM NOTIFIED PT AND DAUGHTER IN ROOM, AFTER DISCUSSION, THEY REQUESTED REHAB AT [facility]. CHOICE SIGNED. CM CALLED HOLLIE AT [facility], , LEFT MESSAGE ASKING FOR REHAB PLACEMENT TODAY. CM FAXED REFERRAL TO [facility] AT [phone]. CM WAITING ADMISSION DETERMINATION FROM [facility] FOR DISCHARGE TODAY. Kristian Antonio CASE MAGDALENE DCP- Discharge Planning Updated by [email or web address]: Kristian Antonio on 09/30/18 9:[address] Patient Name: LATASHA MOORE Encounter No: [id number] : 1930 Primary Insurance: MEDICARE A & B Anticipated DC Date: 09-30-2018 Planned Disposition: Prison Facility External Planned Provider: [facility], MEDICARE REHAB BED DCP follow-up note: CM FAXED REFERRAL TO [facility], . CM CALLED AND SPOKE TO SHAYE AT [facility], , REHAB BED AVAILABLE. CM EXPLAINED SITUATION AND DISCHARGE FROM HOSPITAL TODAY, REQUESTED REHAB ADMISSION TODAY. SHAYE ASSURED CM SHE WILL PROCESS AFTER HER MEETING THIS MORNING. CM NOTIFIED PT. IMPORTANT MESSAGE FROM MEDICARE PROVIDED AND EXPLAINED. CM WAITING ADMISSION DETERMINATION FROM [facility]. Kristian Antonio. CASE MANAGEMENT DCP- Discharge Planning Updated by [id number]: Kristian Antonio on 09/29/18 4:[address] Patient Name: LATASHA MOORE Admission Status: ER Accout number: [id number] Admission Date: 09-26-2018 : 1930 Admission Diagnosis:SHORTNESS OF BREATH Attending: SHAY YBARRA Current LOS: 3 Anticipated DC Date: 09-30-2018 Planned Disposition: Prison Facility Primary Insurance: MEDICARE A & B PLANNED EXTERNAL PROVIDER: [facility], MEDICARE REHAB BED Discharge Planning Comments: CM SPOKE TO PT, SON AND DAUGHTER IN ROOM. PT PROVIDED PERMISSION FOR CM TO SPEAK TO HIM IN FRONT OF HIS CHILDREN AND TO DISCUSS DISCHARGE PLANNING AND NEEDS WITH THEM. CM REVIEWED THERAPY NOTES AND RECOMMENDED REHAB FOR PT. PT DISCUSSED POSSIBLY GOING TO [facility] FOR RESPITE CARE WITH [facility]. PT DECIDED HE WANTS REHAB AT [facility] AGAIN. CHOICE LETTER SIGNED. PT AND FAMILY UNDERSTAND PT WILL DISCHARGE TOMORROW, SOMEWHERE. CM TO SEND REFERRAL TO [facility] SOON POSSIBLE TOMORROW MORNING, 09-30-18. Pole Lift Operator: Kristian Antonio DCP- Discharge Planning Updated by [email or web address]: Kristian Antonio on 09/29/18 10:[address] Patient Name: LATASHA MOORE Admission Status: ER Accout number: [id number] Admission Date: 09-26-2018 : 1930 Admission Diagnosis:SHORTNESS OF BREATH Attending: SHAY YBARRA Current LOS: 3 Anticipated DC Date: 09-30-2018 Planned Disposition: Prison Facility Primary Insurance: MEDICARE A & B Discharge Planning Comments: CM SPOKE TO BEDSIDE NURSE WHO INFORMED CM THAT PT HAS LEFT TO GO TO [facility] AND IS DISCHARGING TODAY FROM THERE; FAMILY IS STILL IN ROOM AND REPORT THEY CANNOT TAKE CARE OF PT AT HOME HE IS VERY WEAK. CM MET WITH PT'S DAUGHTER, KHUSHBOO RUSSELL AND SON RAYNA MOORE (T [phone]) IN ROOM TO DISCUSS DISCHARGE PLANNING AND NEEDS. DAUGHTER STATES PT LIVES AT HOME WITH HIS WHO HAS BEEN ASSISTING WITH GETTING UP, BUT HAS JUST REALLY BEEN STANDING BY WITH THE PHONE IN CASE SHE NEEDS TO CALL FOR HELP. SON AND DAUGHTER HAVE BEEN ASSITING WITH BATH, MEDICATION MANAGEMENT AND TRANSFERS IF PT IS NOT ABLE TO GET UP. PT HAS GLUCOMETER, NEBULIZER AND A BEDSIDE COMMODE FROM [employer]; THE BEDSIDE COMMODE IS OVER THE TOILET SO THAT PT CAN PUSH HIMSELF UP FROM THE HANDLES. PT'S SPOUSE IS SICK AND HAS BACK ISSUES AND CANNOT ASSIST PT NOW, PT IS REPORTELY TOO WEAK TO GO HOME. PT WAS IN REHAB AT [facility], HE JUST COPLETED ABOUT 30 DAYS OF REHAB ON 09-16-18 AND HAS MULTIPLE TRIPS TO HOSPITAL FOR [facility] AND [facility]LL[facility]. SON AND DAUGHTER WANT REHAB FOR PT. CM EXPLAINED REHAB PROVIDERS, LOCATIONS AND SERVICES. CM EXPLAINED THAT PT WILL HAVE TO BE WILLING TO GO TO REHAB AND THAT IF PT IS WILLING, THE DOCTOR WILL HAVE TO PROVIDE PHYSICAL THERAPY EVALUATION. 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 PT'S FAMILY REPORT PT IS TOO WEAK TO GO HOME AND WANT PT TO HAVE REHAB. PT WILL REQURE A PHYSICAL THERAPY EVALUATION TO ASSIST IN THIS EVALUATION AND REFERRALS IF NECESSARY. CM TO SPEAK TO PT AFTER HE RETURNS FROM [place] AND HAS RECOVERED ENOUGH TO PARTICIPATE IN ASSESSMENT AND DISCHARGE PLANNING. Pole Lift Operator: Kristian Antonio DCPIA - Discharge Planning Initial Assessment Updated by [id number]: Kristian Antonio on 09/29/18 11:07 am * Is the patient Alert and Oriented? Yes * How many steps to enter\exit or inside your home? NONE * PCP DR. ROTHMAN * Pharmacy [facility] * Preadmission Environment Home with Family * ADLs Partial Dependent * Partial ADLs (Assistance needed) Bathing Medication Management Transfers * Equipment Glucometer Nebulizer * Other Equipment [facility] - MEDICAL EQUIPMENT PROVIDER * List name and contact numbers for known caregivers / representatives who currently or will assist patient after discharge: KELLY MOORE, SPOUSE, KHUSHBOO RUSSELL DTR, * Verbal permission to speak to the caregivers and representatives has been obtained from the patient. N/A * Community resources currently utilized Home Health * Please name any agencies selected above. [facility] * Additional services required to return to the preadmission environment? Yes * Can the patient safely return to the preadmission environment? Yes * Has this patient been hospitalized within the prior 30 days at any hospital? No Coverage Notice Reviewer: DAYANA Antonio Notice Issued Date-Time: 09/29/2018 17:20 Notice Type: Patient Choice Letter Notice Delivered To: Patient Relationship to Patient: White Hat Hacker Name: Delivery Method: HAND - Hand Delivered Viviana Days: Prior Verbal Notification: Recipient Understood Notice: Yes Recipient Signature: Yes Med Rec Note Co-signed by Attending: Coverage Notice Comment: AMARILIS KINCAID Reviewer: [email or web address] Antonio Notice Issued Date-Time: 09/30/2018 10:30 Notice Type: IM Discharge Notice Notice Delivered To: Patient Relationship to Patient: White Hat Hacker Name: Delivery Method: HAND - Hand Delivered Viviana Days: Prior Verbal Notification: Recipient Understood Notice: Yes Recipient Signature: Yes Med Rec Note Co-signed by Attending: Coverage Notice Comment: Reviewer: DAYANA Antonio Notice Issued Date-Time: 09/30/2018 12:00 Notice Type: Patient Choice Letter Notice Delivered To: Patient Relationship to Patient: White Hat Hacker Name: Delivery Method: HAND - Hand Delivered Viviana Days: Prior Verbal Notification: Recipient Understood Notice: Yes Recipient Signature: Yes Med Rec Note Co-signed by Attending: Coverage Notice Comment: [facility] Last DP export: 09/30/18 11:16 am Patient Name: LATASHA MOORE Page [phone] at 1226 All edits/amendments must be made on the electronic document DICTATION DATE: 09/30/18 1226 IT SYSTEMS ENGINEER: ALEJANDRA 09/30/18 1226 RPT#: [id number] UT DATE: STATUS: ADM IN [facility] [address] [place] [address] END OF REPORT
--- NOTE | 2018-09-30 12:30 | NUR ---
TELEMETRY SR. MARKETING PLANNING MANAGER ASSISTS WITH SHOWER. DAUGHTER AT BS. WILL CONT. PLAN OF CARE.
--- NOTE | 2018-09-30 12:58 | NUR ---
Nutrition follow-up: Diet: ADA consistent CHO PO intake 75-100% of meals no BM charted Wt: 200# PO intake is good at this time. RDN following.
--- NOTE | 2018-09-30 13:04 | MORECARE ---
CASE MANAGEMENT DISCHARGE SUMMARY PATIENT: LATASHA MOORE UNIT: [id number] ADM DATE: 09/26/18 AGE: 88 : 30 SEX: M ROOM/BED: D.2115 AUTHOR: INDIA,DOC PHYSICIAN: REFERRING PHYSICIAN: ELSY YBARRA MD DATE OF SERVICE: 09/30/18 Discharge Plan Patient Name: LATASHA MOORE Facility: [facility]:[place] : 1930 Planned Disposition: Group Home Facility Anticipated Discharge Date: 09/30/18 Discharge Date: Expected LOS: 4 Initial Reviewer: [id number] Initial Review Date: 09/26/2018 Generated: 09/30/18 2:03 pm Comments DCP- Discharge Planning Updated by [id number]: Kristian Antonio on 09/30/18 11:[address] Patient Name: LATASHA MOORE Encounter No: [id number] : 1930 Primary Insurance: MEDICARE A & B Anticipated DC Date: 09-30-2018 Planned Disposition: Group Home Facility External [facility] DCP follow-up note: CM RECEIVED CALL FROM SHAYE OF [place] WHO DECLINED PT WITH NO REASON GIVEN. CM NOTIFIED PT AND DAUGHTER IN ROOM, AFTER DISCUSSION, THEY REQUESTED REHAB AT [facility] CHOICE SIGNED. CM CALLED HOLLIE AT [facility], , LEFT MESSAGE ASKING FOR REHAB PLACEMENT TODAY. CM FAXED REFERRAL TO [facility] AT [phone]. CM WAITING ADMISSION DETERMINATION FROM [facility] FOR DISCHARGE TODAY. Kristian Antonio CASE MAGDALENE DCP- Discharge Planning Updated by [id number]: Kristian Antonio on 09/30/18 9:[address] Patient Name: LATASHA MOORE Encounter No: [id number] : 1930 Primary Insurance: MEDICARE A & B Anticipated DC Date: 09-30-2018 Planned Disposition: Group Home Facility External Planned Provider: [facility], MEDICARE REHAB BED DCP follow-up note: CM FAXED REFERRAL TO [facility], . CM CALLED AND SPOKE TO SHAYE AT [place], , REHAB BED AVAILABLE. CM EXPLAINED SITUATION AND DISCHARGE FROM HOSPITAL TODAY, REQUESTED REHAB ADMISSION TODAY. SHAYE ASSURED CM SHE WILL PROCESS AFTER HER MEETING THIS MORNING. CM NOTIFIED PT. IMPORTANT MESSAGE FROM MEDICARE PROVIDED AND EXPLAINED. CM WAITING ADMISSION DETERMINATION FROM [facility]. Kristian Antonio. CASE MANAGEMENT DCP- Discharge Planning Updated by [id number]: Kristian Antonio on 09/29/18 4:[address] Patient Name: LATASHA MOORE Admission Status: ER Accout number: [id number] Admission Date: 09-26-2018 : 1930 Admission Diagnosis:SHORTNESS OF BREATH Attending: SHAY YBARRA Current LOS: 3 Anticipated DC Date: 09-30-2018 Planned Disposition: Group Home Facility Primary Insurance: MEDICARE A & B PLANNED EXTERNAL PROVIDER: [facility], MEDICARE REHAB BED Discharge Planning Comments: CM SPOKE TO PT, SON AND DAUGHTER IN ROOM. PT PROVIDED PERMISSION FOR CM TO SPEAK TO HIM IN FRONT OF HIS CHILDREN AND TO DISCUSS DISCHARGE PLANNING AND NEEDS WITH THEM. CM REVIEWED THERAPY NOTES AND RECOMMENDED REHAB FOR PT. PT DISCUSSED POSSIBLY GOING TO [facility] FOR RESPITE CARE WITH [facility]. PT DECIDED HE WANTS REHAB AT [place] AGAIN. CHOICE LETTER SIGNED. PT AND FAMILY UNDERSTAND PT WILL DISCHARGE TOMORROW, SOMEWHERE. CM TO SEND REFERRAL TO [facility] SOON POSSIBLE TOMORROW MORNING, 09-30-18. Supervisor Transcribing Operators: Kristian Antonio DCP- Discharge Planning Updated by [id number]: Kristian Antonio on 09/29/18 10:[address] Patient Name: LATASHA MOORE Admission Status: ER Accout number: [id number] Admission Date: 09-26-2018 : 1930 Admission Diagnosis:SHORTNESS OF BREATH Attending: SHAY YBARRA Current LOS: 3 Anticipated DC Date: 09-30-2018 Planned Disposition: Group Home Facility Primary Insurance: MEDICARE A & B Discharge Planning Comments: CM SPOKE TO BEDSIDE NURSE WHO INFORMED CM THAT PT HAS LEFT TO GO TO [facility] AND IS DISCHARGING TODAY FROM THERE; FAMILY IS STILL IN ROOM AND REPORT THEY CANNOT TAKE CARE OF PT AT HOME HE IS VERY WEAK. CM MET WITH PT'S DAUGHTER, KHUSHBOO RUSSELL AND SON RAYNA MOORE (T [phone]) IN ROOM TO DISCUSS DISCHARGE PLANNING AND NEEDS. DAUGHTER STATES PT LIVES AT HOME WITH HIS WHO HAS BEEN ASSISTING WITH GETTING UP, BUT HAS JUST REALLY BEEN STANDING BY WITH THE PHONE IN CASE SHE NEEDS TO CALL FOR HELP. SON AND DAUGHTER HAVE BEEN ASSITING WITH BATH, MEDICATION MANAGEMENT AND TRANSFERS IF PT IS NOT ABLE TO GET UP. PT HAS GLUCOMETER, NEBULIZER AND A BEDSIDE COMMODE FROM [employer]; THE BEDSIDE COMMODE IS OVER THE TOILET SO THAT PT CAN PUSH HIMSELF UP FROM THE HANDLES. PT'S SPOUSE IS SICK AND HAS BACK ISSUES AND CANNOT ASSIST PT NOW, PT IS REPORTELY TOO WEAK TO GO HOME. PT WAS IN REHAB AT [facility], HE JUST COPLETED ABOUT 30 DAYS OF REHAB ON 09-16-18 AND HAS MULTIPLE TRIPS TO [facility]. SON AND DAUGHTER WANT REHAB FOR PT. CM EXPLAINED REHAB PROVIDERS, LOCATIONS AND SERVICES. CM EXPLAINED THAT PT WILL HAVE TO BE WILLING TO GO TO REHAB AND THAT IF PT IS WILLING, THE DOCTOR WILL HAVE TO PROVIDE PHYSICAL THERAPY EVALUATION. 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 PT'S FAMILY REPORT PT IS TOO WEAK TO GO HOME AND WANT PT TO HAVE REHAB. PT WILL REQURE A PHYSICAL THERAPY EVALUATION TO ASSIST IN THIS EVALUATION AND REFERRALS IF NECESSARY. CM TO SPEAK TO PT AFTER HE RETURNS FROM [employer] MANAGER AND HAS RECOVERED ENOUGH TO PARTICIPATE IN ASSESSMENT AND DISCHARGE PLANNING. Supervisor Transcribing Operators: Kristian Antonio DCPIA - Discharge Planning Initial Assessment Updated by [id number]: Kristian Antonio on 09/29/18 11:07 am * Is the patient Alert and Oriented? Yes * How many steps to enter\exit or inside your home? NONE * PCP DR. ROTHMAN * Pharmacy [facility] * Preadmission Environment Home with Family * ADLs Partial Dependent * Partial ADLs (Assistance needed) Bathing Medication Management Transfers * Equipment Glucometer Nebulizer * Other Equipment [employer] - MEDICAL EQUIPMENT PROVIDER * List name and contact numbers for known caregivers / representatives who currently or will assist patient after discharge: KELLY MOORE, SPOUSE, KHUSHBOO RUSSELL DTR, * Verbal permission to speak to the caregivers and representatives has been obtained from the patient. N/A * Community resources currently utilized Home Health * Please name any agencies selected above. [facility] * Additional services required to return to the preadmission environment? Yes * Can the patient safely return to the preadmission environment? Yes * Has this patient been hospitalized within the prior 30 days at any hospital? No Coverage Notice Reviewer: DAYANA Antonio Notice Issued Date-Time: 09/29/2018 17:20 Notice Type: Patient Choice Letter Notice Delivered To: Patient Relationship to Patient: Micro Paleontologist Name: Delivery Method: HAND - Hand Delivered Viviana Days: Prior Verbal Notification: Recipient Understood Notice: Yes Recipient Signature: Yes Med Rec Note Co-signed by Attending: Coverage Notice Comment: AMARILIS KINCAID Reviewer: [id number] Antonio Notice Issued Date-Time: 09/30/2018 10:30 Notice Type: IM Discharge Notice Notice Delivered To: Patient Relationship to Patient: Micro Paleontologist Name: Delivery Method: HAND - Hand Delivered Viviana Days: Prior Verbal Notification: Recipient Understood Notice: Yes Recipient Signature: Yes Med Rec Note Co-signed by Attending: Coverage Notice Comment: Reviewer: DAYANA Antonio Notice Issued Date-Time: 09/30/2018 12:00 Notice Type: Patient Choice Letter Notice Delivered To: Patient Relationship to Patient: Micro Paleontologist Name: Delivery Method: HAND - Hand Delivered Viviana Days: Prior Verbal Notification: Recipient Understood Notice: Yes Recipient Signature: Yes Med Rec Note Co-signed by Attending: Coverage Notice Comment: [facility] Last DP export: 09/30/18 11:26 am Patient Name: LATASHA MOORE Page [id number] at 1304 All edits/amendments must be made on the electronic document DICTATION DATE: 09/30/18 1303 FUR CUTTING MACHINE OPERATOR: ALEJANDRA 09/30/18 1303 RPT#: [id number] DC DATE: STATUS: ADM IN [facility] [address] [place] [address] END OF REPORT
--- NOTE | 2018-09-30 13:13 | MORECARE ---
CASE MANAGEMENT DISCHARGE SUMMARY PATIENT: LATASHA MOORE UNIT: [id number] ADM DATE: 09/26/18 AGE: 88 : 30 SEX: M ROOM/BED: D.0225 AUTHOR: INDIA,DOC PHYSICIAN: REFERRING PHYSICIAN: ELSY YBARRA MD DATE OF SERVICE: 09/30/18 Discharge Plan Patient Name: LATASHA MOORE Facility: [facility]:[place] : 1930 Planned Disposition: Nursing Home Facility Anticipated Discharge Date: 09/30/18 Discharge Date: Expected LOS: 4 Initial Reviewer: [id number] Initial Review Date: 09/26/2018 Generated: 09/30/18 2:12 pm Comments DCP- Discharge Planning Updated by [id number]: Debbi Estes on 09/30/18 12:[address] Patient Name: LATASHA MOORE Encounter No: [id number] : 1930 Primary Insurance: MEDICARE A & B Anticipated DC Date: 09-30-2018 Planned Disposition: Nursing Home Facility External Planned Provider: [facility], MEDICARE REHAB BED DCP follow-up note: CM RECEIVED CALL FROM SHAYE [facility] WHO DECLINED PT WITH NO REASON GIVEN. CM NOTIFIED PT AND DAUGHTER IN ROOM, AFTER DISCUSSION, THEY REQUESTED REHAB AT [facility]. CHOICE SIGNED. CM CALLED HOLLIE AT [facility], , LEFT MESSAGE ASKING FOR REHAB PLACEMENT TODAY. CM FAXED REFERRAL TO [facility] AT [phone]. CM WAITING ADMISSION DETERMINATION FROM [facility] FOR DISCHARGE TODAY. Debbi Estes, CASE MANAGEMENT Appended by Debbi Estes on 09/30/2018 13:05 CDT: CM RECEIVED CALL FROM PEBBLES OF [facility] WHO INFORMED CM THAT PT HAS BEEN ACCEPTED FOR REHAB AT [facility]. CM NOTIFIED PT AND DAUGHTER IN ROOM, BOTH IN AGREEMENT WITH DISCHARGE TO REHAB TODAY. CM FAXED DISCHARGE INFORMATION TO [facility] AT [phone]. NURSE REPORT TO BE CALLED TO [facility] AT [phone]. [facility] TO RECRUIT INSTRUCTOR PT FOR TRANSPORT TO REHAB TODAY. DEBBI ESTES, CASE MANAGEMENT DCP- Discharge Planning Updated by [id number]: Debbi Estes on 09/30/18 9:[address] Patient Name: LATASHA MOORE Encounter No: [id number] : 1930 Primary Insurance: MEDICARE A & B Anticipated DC Date: 09-30-2018 Planned Disposition: Nursing Home Facility External Planned Provider: [facility], MEDICARE REHAB BED DCP follow-up note: CM FAXED REFERRAL TO [facility], . CM CALLED AND SPOKE TO SHAYE AT [place], , REHAB BED AVAILABLE. CM EXPLAINED SITUATION AND DISCHARGE FROM HOSPITAL TODAY, REQUESTED REHAB ADMISSION TODAY. SHAYE ASSURED CM SHE WILL PROCESS AFTER HER MEETING THIS MORNING. CM NOTIFIED PT. IMPORTANT MESSAGE FROM MEDICARE PROVIDED AND EXPLAINED. CM WAITING ADMISSION DETERMINATION FROM [facility]. Debbi Estes. CASE MANAGEMENT DCP- Discharge Planning Updated by [id number]: Debbi Estes on 09/29/18 4:[address] Patient Name: LATASHA MOORE Admission Status: ER Accout number: [id number] Admission Date: 09-26-2018 : 1930 Admission Diagnosis:SHORTNESS OF BREATH Attending: SHAY YBARRA Current LOS: 3 Anticipated DC Date: 09-30-2018 Planned Disposition: Nursing Home Facility Primary Insurance: MEDICARE A & B PLANNED EXTERNAL PROVIDER: [facility], MEDICARE REHAB BED Discharge Planning Comments: CM SPOKE TO PT, SON AND DAUGHTER IN ROOM. PT PROVIDED PERMISSION FOR CM TO SPEAK TO HIM IN FRONT OF HIS CHILDREN AND TO DISCUSS DISCHARGE PLANNING AND NEEDS WITH THEM. CM REVIEWED THERAPY NOTES AND RECOMMENDED REHAB FOR PT. PT DISCUSSED POSSIBLY GOING TO [facility] FOR RESPITE CARE WITH HOME HEALTH. PT DECIDED HE WANTS REHAB AT [place] AGAIN. CHOICE LETTER SIGNED. PT AND FAMILY UNDERSTAND PT WILL DISCHARGE TOMORROW, SOMEWHERE. CM TO [facility] TOM[facility]ROW MORNING, 09-30-18. Photocopy Operator: Debbi Estes DCP- Discharge Planning Updated by [id number]: Debbi sEtes on 09/29/18 10:[address] Patient Name: LATASHA MOORE Admission Status: ER Accout number: [id number] Admission Date: 09-26-2018 : 1930 Admission Diagnosis:SHORTNESS OF BREATH Attending: SHAY YBARRA Current LOS: 3 Anticipated DC Date: 09-30-2018 Planned Disposition: Nursing Home Facility Primary Insurance: MEDICARE A & B Discharge Planning Comments: CM SPOKE TO BEDSIDE NURSE WHO INFORMED CM THAT PT HAS LEFT TO GO TO [place] AND IS DISCHARGING TODAY FROM THERE; FAMILY IS STILL IN ROOM AND REPORT THEY CANNOT TAKE CARE OF PT AT HOME HE IS VERY WEAK. CM MET WITH PT'S DAUGHTER, KHUSHBOO RUSSELL AND SON RAYNA MOORE (T [phone]) IN ROOM TO DISCUSS DISCHARGE PLANNING AND NEEDS. DAUGHTER STATES PT LIVES AT HOME WITH HIS WHO HAS BEEN ASSISTING WITH GETTING UP, BUT HAS JUST REALLY BEEN STANDING BY WITH THE PHONE IN CASE SHE NEEDS TO CALL FOR HELP. SON AND DAUGHTER HAVE BEEN ASSITING WITH BATH, MEDICATION MANAGEMENT AND TRANSFERS IF PT IS NOT ABLE TO GET UP. PT HAS GLUCOMETER, NEBULIZER AND A BEDSIDE COMMODE FROM [employer]; THE BEDSIDE COMMODE IS OVER THE TOILET SO THAT PT CAN PUSH HIMSELF UP FROM THE HANDLES. PT'S SPOUSE IS SICK AND HAS BACK ISSUES AND CANNOT ASSIST PT NOW, PT IS REPORTELY TOO WEAK TO GO HOME. PT WAS IN REHAB AT [facility], HE JUST COPLETED ABOUT 30 DAYS OF REHAB ON 09-16-18 AND HAS MULTIPLE TRIPS TO [facility]. SON AND DAUGHTER WANT REHAB FOR PT. CM EXPLAINED REHAB PROVIDERS, LOCATIONS AND SERVICES. CM EXPLAINED THAT PT WILL HAVE TO BE WILLING TO GO TO REHAB AND THAT IF PT IS WILLING, THE DOCTOR WILL HAVE TO PROVIDE PHYSICAL THERAPY EVALUATION. 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 PT'S FAMILY REPORT PT IS TOO WEAK TO GO HOME AND WANT PT TO HAVE REHAB. PT WILL REQURE A PHYSICAL THERAPY EVALUATION TO ASSIST IN THIS EVALUATION AND REFERRALS IF NECESSARY. 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 Photocopy Operator: Debbi Estes DCPIA - Discharge Planning Initial Assessment Updated by [id number]: Debbi Estes on 09/29/18 11:07 am * Is the patient Alert and Oriented? Yes * How many steps to enter\exit or inside your home? NONE * PCP DR. ROTHMAN * Pharmacy [facility] * Preadmission Environment Home with Family * ADLs Partial Dependent * Partial ADLs (Assistance needed) Bathing Medication Management Transfers * Equipment Glucometer Nebulizer * Other Equipment [employer] - MEDICAL EQUIPMENT PROVIDER * List name and contact numbers for known caregivers / representatives who currently or will assist patient after discharge: ALEJANDROJOEL MOORE, SPOUSE, KHUSHBOO RUSSELL, DTR, * Verbal permission to speak to the caregivers and representatives has been obtained from the patient. N/A * Community resources currently utilized Home Health * Please name any agencies selected above. [facility] * Additional services required to return to the preadmission environment? Yes * Can the patient safely return to the preadmission environment? Yes * Has this patient been hospitalized within the prior 30 days at any hospital? No Coverage Notice Reviewer: DAYANA Estes Notice Issued Date-Time: 09/29/2018 17:20 Notice Type: Patient Choice Letter Notice Delivered To: Patient Relationship to Patient: Director Of Flight Operations Name: Delivery Method: HAND - Hand Delivered Viviana Days: Prior Verbal Notification: Recipient Understood Notice: Yes Recipient Signature: Yes Med Rec Note Co-signed by Attending: Coverage Notice Comment: AMARILIS KINCAID Reviewer: [id number] Estes Notice Issued Date-Time: 09/30/2018 10:30 Notice Type: IM Discharge Notice Notice Delivered To: Patient Relationship to Patient: Director Of Flight Operations Name: Delivery Method: HAND - Hand Delivered Viviana Days: Prior Verbal Notification: Recipient Understood Notice: Yes Recipient Signature: Yes Med Rec Note Co-signed by Attending: Coverage Notice Comment: Reviewer: [id number] Estes Notice Issued Date-Time: 09/30/2018 12:00 Notice Type: Patient Choice Letter Notice Delivered To: Patient Relationship to Patient: Director Of Flight Operations Name: Delivery Method: HAND - Hand Delivered Viviana Days: Prior Verbal Notification: Recipient Understood Notice: Yes Recipient Signature: Yes Med Rec Note Co-signed by Attending: Coverage Notice Comment: [facility] Last DP export: 09/30/18 12:04 pm Patient Name: LATASHA MOORE Page [id number] at 1313 All edits/amendments must be made on the electronic document DICTATION DATE: 09/30/181311 TELEVISION RECEIVER ANALYZER: ALEJANDRA 09/30/181311 RPT#: [id number] DC DATE: STATUS: ADM IN [facility] [address] [place] [address] END OF REPORT
--- NOTE | 2018-09-30 15:08 | MORECARE ---
CASE MANAGEMENT DISCHARGE SUMMARY PATIENT: LATASHA MOORE UNIT: [id number] ADM DATE: 09/26/18 AGE: 88 : 30 SEX: M ROOM/BED: D.4065 AUTHOR: IND[place],DOC PHYSICIAN: REFERRING PHYSICIAN: ELSY YBARRA MD DATE OF SERVICE: 09/30/18 Discharge Plan Patient Name: LATASHA MOORE Facility: [facility]:[place] : 1930 Planned Disposition: [facility] Facility Anticipated Discharge Date: 09/30/18 Discharge Date: Expected LOS: 4 Initial Reviewer: [id number] Initial Review Date: 09/26/2018 Generated: 09/30/18 4:08 pm Comments DCP- Discharge Planning Updated by [email or web address]: Debbi Estes on 09/30/18 12:[address] Patient Name: LATASHA MOORE Encounter No: [id number] : 1930 Primary Insurance: MEDICARE A & B Anticipated DC Date: 09-30-2018 Planned Disposition: [facility] Facility External Planned Provider: [facility], MEDICARE REHAB BED DCP follow-up note: CM RECEIVED CALL FROM [facility]AYE [facility] WHO DECLINED PT WITH NO REASON GIVEN. CM NOTIFIED PT AND DAUGHTER IN ROOM, AFTER DISCUSSION, THEY REQUESTED REHAB AT [facility]. CHOICE SIGNED. CM CALLED HOLLIE AT [facility], , LEFT MESSAGE ASKING FOR REHAB PLACEMENT TODAY. CM FAXED REFERRAL TO [facility] AT [phone]. CM WAITING ADMISSION DETERMINATION FROM [facility] FOR DISCHARGE TODAY. Debbi Estes, CASE MANAGEMENT Appended by Debbi Estes on 09/30/2018 13:05 CDT: CM RECEIVED CALL FROM PEBBLES OF [facility] WHO INFORMED CM THAT PT HAS BEEN ACCEPTED FOR REHAB AT [facility]. CM NOTIFIED PT AND DAUGHTER IN ROOM, BOTH IN AGREEMENT WITH DISCHARGE TO REHAB TODAY. CM FAXED DISCHARGE INFORMATION TO [facility] AT [phone]. NURSE REPORT TO BE CALLED TO [facility] AT [phone]. [facility] VAN TO OPERATING THEATRE TECHNICIAN PT FOR TRANSPORT TO REHAB TODAY. DEBBI ESTES, CASE MANAGEMENT DCP- Discharge Planning Updated by [id number]: Debbi Estes on 09/30/18 9:[address] Patient Name: LATASHA MOORE Encounter No: [id number] : 1930 Primary Insurance: MEDICARE A & B Anticipated DC Date: 09-30-2018 Planned Disposition: [facility] Facility External Planned Provider: [facility], MEDICARE REHAB BED DCP follow-up note: CM FAXED REFERRAL TO [facility], . CM CALLED AND SPOKE TO SHAYE AT [facility], , REHAB BED AVAILABLE. CM EXPLAINED SITUATION AND DISCHARGE FROM HOSPITAL TODAY, REQUESTED REHAB ADMISSION TODAY. SHAYE ASSURED CM SHE WILL PROCESS AFTER HER MEETING THIS MORNING. CM NOTIFIED PT. IMPORTANT MESSAGE FROM MEDICARE PROVIDED AND EXPLAINED. CM WAITING ADMISSION DETERMINATION FROM [facility]. Debbi Estes. CASE MANAGEMENT DCP- Discharge Planning Updated by [id number]: Debbi Estes on 09/29/18 4:[address] Patient Name: LATASHA MOORE Admission Status: ER Accout number: [id number] Admission Date: 09-26-2018 : 1930 Admission Diagnosis:SHORTNESS OF BREATH Attending: SHAY YBARRA Current LOS: 3 Anticipated DC Date: 09-30-2018 Planned Disposition: [facility] Facility Primary Insurance: MEDICARE A & B PLANNED EXTERNAL PROVIDER: [facility], MEDICARE REHAB BED Discharge Planning Comments: CM SPOKE TO PT, SON AND DAUGHTER IN ROOM. PT PROVIDED PERMISSION FOR CM TO SPEAK TO HIM IN FRONT OF HIS CHILDREN AND TO DISCUSS DISCHARGE PLANNING AND NEEDS WITH THEM. CM REVIEWED THERAPY NOTES AND RECOMMENDED REHAB FOR PT. PT DISCUSSED POSSIBLY GOING TO [facility] FOR RESPITE CARE WITH HOME HEALTH. PT DECIDED HE WANTS REHAB AT [facility] AGAIN. CHOICE LETTER SIGNED. PT AND FAMILY UNDERSTAND PT WILL DISCHARGE TOMORROW, SOMEWHERE. CM TO SEND REFERRAL [facility] TOMOR[facility] MORNING, 09-30-18. Copier Operator: Debbi Estes DCP- Discharge Planning Updated by [id number]: Debbi Estes on 09/29/18 10:[address] Patient Name: LATASHA MOORE Admission Status: ER Accout number: [id number] Admission Date: 09-26-2018 : 1930 Admission Diagnosis:SHORTNESS OF BREATH Attending: SHAY YBARRA Current LOS: 3 Anticipated DC Date: 09-30-2018 Planned Disposition: [facility] Facility Primary Insurance: MEDICARE A & B Discharge Planning Comments: CM SPOKE TO BEDSIDE NURSE WHO INFORMED CM THAT PT HAS LEFT TO GO TO [place] AND IS DISCHARGING TODAY FROM THERE; FAMILY IS STILL IN ROOM AND REPORT THEY CANNOT TAKE CARE OF PT AT HOME HE IS VERY WEAK. CM MET WITH PT'S DAUGHTER, KHUSHBOO RUSSELL AND SON RAYNA MOORE (T [phone]) IN ROOM TO DISCUSS DISCHARGE PLANNING AND NEEDS. DAUGHTER STATES PT LIVES AT HOME WITH HIS WHO HAS BEEN ASSISTING WITH GETTING UP, BUT HAS JUST REALLY BEEN STANDING BY WITH THE PHONE IN CASE SHE NEEDS TO CALL FOR HELP. SON AND DAUGHTER HAVE BEEN ASSITING WITH BATH, MEDICATION MANAGEMENT AND TRANSFERS IF PT IS NOT ABLE TO GET UP. PT HAS GLUCOMETER, NEBULIZER AND A BEDSIDE COMMODE FROM [employer]; THE BEDSIDE COMMODE IS OVER THE TOILET SO THAT PT CAN PUSH HIMSELF UP FROM THE HANDLES. PT'S SPOUSE IS SICK AND HAS BACK ISSUES AND CANNOT ASSIST PT NOW, PT IS REPORTELY TOO WEAK TO GO HOME. PT WAS IN REHAB AT [facility], HE JUST COPLETED ABOUT 30 DAYS OF REHAB ON 09-16-18 AND HAS MULTIPLE TRIPS TO HOSPITAL FOR FALLS AND ILLNESS. SON AND DAUGHTER WANT REHAB FOR PT. CM EXPLAINED REHAB PROVIDERS, LOCATIONS AND SERVICES. CM EXPLAINED THAT PT WILL HAVE TO BE WILLING TO GO TO REHAB AND THAT IF PT IS WILLING, THE DOCTOR WILL HAVE TO PROVIDE PHYSICAL THERAPY EVALUATION. 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 PT'S FAMILY REPORT PT IS TOO WEAK TO GO HOME AND WANT PT TO HAVE REHAB. PT WILL REQURE A PHYSICAL THERAPY EVALUATION TO ASSIST IN THIS EVALUATION AND REFERRALS IF NECESSARY. CM TO SPEAK TO PT AFTER HE RETURNS FROM [facility] AND HAS RECOVERED ENOUGH TO PARTICIPATE IN ASSESSMENT AND DISCHARGE PLANNING. Copier Operator: Debbi Estes DCPIA - Discharge Planning Initial Assessment Updated by [id number]: Debbi Estes on 09/29/18 11:07 am * Is the patient Alert and Oriented? Yes * How many steps to enter\exit or inside your home? NONE * PCP DR. ROTHMAN * Pharmacy [facility] * Preadmission Environment Home with Family * ADLs Partial Dependent * Partial ADLs (Assistance needed) Bathing Medication Management Transfers * Equipment Glucometer Nebulizer * Other Equipment [employer] - MEDICAL EQUIPMENT PROVIDER * List name and contact numbers for known caregivers / representatives who currently or will assist patient after discharge: ALEJANDROJOEL MOORE, SPOUSE, KHUSHBOO RUSSELL, DTR, * Verbal permission to speak to the caregivers and representatives has been obtained from the patient. N/A * Community resources currently utilized Home Health * Please name any agencies selected above. [facility] * Additional services required to return to the preadmission environment? Yes * Can the patient safely return to the preadmission environment? Yes * Has this patient been hospitalized within the prior 30 days at any hospital? No Coverage Notice Reviewer: DAYANA Estes Notice Issued Date-Time: 09/29/2018 17:20 Notice Type: Patient Choice Letter Notice Delivered To: Patient Relationship to Patient: Mercerizer Name: Delivery Method: HAND - Hand Delivered Viviana Days: Prior Verbal Notification: Recipient Understood Notice: Yes Recipient Signature: Yes Med Rec Note Co-signed by Attending: Coverage Notice Comment: AMARILIS KINCAID Reviewer: [id number] Estes Notice Issued Date-Time: 09/30/2018 10:30 Notice Type: IM Discharge Notice Notice Delivered To: Patient Relationship to Patient: Mercerizer Name: Delivery Method: HAND - Hand Delivered Viviana Days: Prior Verbal Notification: Recipient Understood Notice: Yes Recipient Signature: Yes Med Rec Note Co-signed by Attending: Coverage Notice Comment: Reviewer: [id number] Estes Notice Issued Date-Time: 09/30/2018 12:00 Notice Type: Patient Choice Letter Notice Delivered To: Patient Relationship to Patient: Mercerizer Name: Delivery Method: HAND - Hand Delivered Viviana Days: Prior Verbal Notification: Recipient Understood Notice: Yes Recipient Signature: Yes Med Rec Note Co-signed by Attending: Coverage Notice Comment: [facility] Last DP export: 09/30/18 12:12 pm Patient Name: LATASHA MOORE Page [id number] at 1508 All edits/amendments must be made on the electronic document DICTATION DATE: 09/30/181506 MERCHANDISE SUPERVISOR: ALEJANDRA 09/30/181506 RPT#: [id number] DC DATE: STATUS: ADM IN [facility] [address] [place] [address] END OF REPORT
--- NOTE | 2018-09-30 15:30 | NUR ---
REPORT CALLED TO REHAB. IV AND TELEMETRY DCD. DC PLANS GIVEN. UNDERSTANDING VOICED. ESCORTED BY W/C
--- NOTE | 2018-10-03 16:41 | HP ---
PATIENT: LATASHA LANGSTON MEDICAL RECORD: [id number] ACCOUNT: [id number] LOCATION:[address] : [birth year] ADMISSION DATE: 09/26/18 PCP: KELTON ROTHMAN DO HISTORY AND PHYSICAL EXAMINATION DIAGNOSES: 1. Shortness of breath, dyspnea on exertion. 2. Chest pain. 3. Elevated troponin. 4. Chronic obstructive pulmonary disease. 5. Smoking history. 6. Recent pneumonia. 7. Hypertension. HISTORY OF PRESENT ILLNESS: Mr. Langston presents with shortness of breath that has progressed over the past week. It has progressed to the point where he cannot even walk across the room without getting extremely short of breath and diaphoretic. He as well is having chest pressure when he exerts himself, this is new for him. He has no history of ischemic heart disease. Last month when he was in the hospital, he had an echocardiogram that showed an ejection fraction of 55%, very mild aortic stenosis, moderate mitral regurgitation, but the ejection fraction was in the 55% range. PHYSICAL EXAMINATION: GENERAL APPEARANCE: Well-nourished, well-developed, appears stated age. Level of distress, comfortable. PSYCHIATRIC: Mental status, alert, normal affect. Orientation, oriented to time, place and person. EYES: Lids and conjunctiva, noninjected. No discharge, no pallor. ENT: Lips, teeth, gums, normal dentition. Oropharynx, no cyanosis, no pallor. NECK: Carotid arteries, bilateral normal upstroke, no bruits, no thrills. JUGULAR VEINS: No jugular venous pressure or distention. CERVICAL LYMPH NODES: Nontender, nonenlarged. THYROID: Not enlarged. Nontender. No nodules. LUNGS: Respiratory effort, unlabored. CHEST: Normal curvature. No thoracic deformity. No chest wall tenderness. Percussion, resonant. Auscultation, clear. No wheezes, no rales, no rhonchi. CARDIOVASCULAR: Precordial exam, nondisplaced. No heaves or pericardial thrills. Rate and rhythm, regular. Heart sounds, normal S1, normal S2. No S3, no gallop, no rub. Systolic murmur, not heard. Diastolic murmur, not heard. EXTREMITIES: No cyanosis, no edema. Peripheral pulses, full and equal in all extremities, except as noted. No bruits appreciated. ABDOMEN: Soft, nondistended. Normal aorta. No bruit. Nontender. No masses. Liver, nontender, no hepatomegaly. Spleen, nontender, no splenomegaly. MUSCULOSKELETAL: No joint tenderness. No joint swelling. No erythema. NEUROLOGICAL: Normal gait, normal strength, normal tone. SKIN: Warm and dry. ASSESSMENT AND PLAN: His EKG is with nonspecific ST-T abnormalities. Troponin is mildly elevated. Most likely this pulmonary edema is cardiac in nature. His chest x-ray looked okay and most likely secondary to ongoing ischemia. Hence, the elevated troponin. We will diurese him today, get better blood pressure control, add a calcium channel calin and a nitrate to his beta-calin. We will see how he progresses with this. If he continues to have symptomatology, we would proceed with coronary angiography. HISTORY AND PHYSICAL [id number] LATASHA LANGSTON TRANSINT:[id number] Voice Confirmation ID: [id number] DOCUMENT ID: [id number] ELSY YBARRA MD at 1641 CC: [id number] DICTATION DATE: 09/26/18 1017 REGISTRAR NURSES' REGISTRY: 09/26/18 1113 DIS IN 09/30/18 [facility] [address] [place] [address]
--- NOTE | 2018-10-03 16:41 | EC ---
PATIENT:LATASHA MOORE DATE OF SERVICE: 09/26/18 SEX: M MEDICAL RECORD: [id number] DATE OF : [birth year] LOCATION:D.M2 D.211 AGE OF PATIENT: 88 ADMISSION DATE: 09/26/18 REFERRING PHYSICIAN: INTERPRETING PHYSICIAN: ELSY AMOS MD ECHOCARDIOGRAM REPORT ECHO CHARGES 4 ECHO COMPLETE Date: 09/26/18 CLINICAL DIAGNOSIS: NEW ONSET CHF ECHOCARDIOGRAPHIC MEASUREMENTS (adult normal given) AC root (d.<3.7cm) 3.3 cm LV Septum d (<1.2 cm> 1.3 cm Valve Excursion 1.3 cm LV Septum (systole) 1.5 cm Left Atria (s.<4.0cm> 4.2 cm LVPW d(<1.2cm) 1.4 cm RV (d.<2.3cm) 4.0 cm LVPW (sytole) 1.6 cm LV diastole(<5.6CM) 4.9 cm MV E-F(>70mm/sec) cm LV systole 3.4 cm LVOT Diameter 2.2 cm MV exc.(>10mm) 1.7 cm Est.ejection fraction (50-75%) % DOPPLER: LVIT cm/sec A 85.0 cm/sec E 106 cm/sec LA cm/sec RVSP 66 mmHg LVOT 75 cm/sec AOP1/2T m/s Asc. Ao 199 cm/sec RVOT 73 cm/sec RA cm/sec PA 101 cm/sec AV Gradient Peak 15.86mmHg AV Mean 9.74 mmHg AV Area 1.4 cm MV Gradient Peak 8.52 mmHg MV Mean 2.97 mmHg MV Area cm COMMENTS: Propellant Charge Loader: Danis DUFFY Diesel Locomotive Crane Operator: 1 Dr. Amos TAPE# PACS Pericardial Effusion N DATE OF SERVICE: 09/26/2018 ECHOCARDIOGRAM DATE OF SERVICE: 09/26/2018 FINDINGS: 1. Left ventricular chamber size is within normal limits. Left ventricular systolic function is normal. Overall ejection fraction estimated at 55%. 2. Left atrium is enlarged at 4.2 cm. Right atrium and right ventricular ECHOCARDIOGRAM REPORT [id number] LATASHA MOORE chamber sizes are as well mildly dilated. 3. Valvular structures: Aortic valve demonstrates mild calcific aortic stenosis, valve area calculates 1.5 cm-squared and has a gradient of 15-mm across the valve. The remaining valvular structures have normal structure and motion. 4. Doppler interrogation else rashid reveals swcz-dg-[id number] mitral regurgitation, moderate tricuspid regurgitation, no other valvular insufficiency or stenosis. 5. No evidence of pericardial effusion or left ventricular thrombus. TRANSINT:[id number] Voice Confirmation ID: [id number] DOCUMENT ID: [id number] ELSY AMOS MD at 1641 CC: [id number] DICTATION DATE: 09/26/18 1237 SENIOR POLICY ASSOCIATE: 09/26/18 1322 DIS IN 09/30/18 [facility] [address] [place] [address]
--- NOTE | 2018-10-03 16:41 | DS ---
PATIENT:LATASHA LANGSTON :[birth year] MEDICAL RECORD: [id number] DISCHARGE SUMMARY ADMISSION DATE: 09/26/18 DISCHARGE DATE: 09/30/18 DIAGNOSES: 1. Non-Q-wave myocardial infarction. 2. Shortness of breath, dyspnea on exertion. 3. Pulmonary edema. 4. Coronary artery disease. 5. Percutaneous transluminal coronary angioplasty and stent of the right coronary artery, left main and left anterior descending this admission. 6. Hypertension. 7. Hyperlipidemia. HOSPITAL COURSE: Mr. Langston presents with flash pulmonary edema and elevated troponin and found to have 3-vessel coronary artery disease, underwent successful PTCA and stent of the RCA, left main and LAD, was discharged home with the addition of Procardia, Toprol, and Plavix to his medical regimen. Will follow up with [facility] in 1 month. TRANSINT:[id number] Voice Confirmation ID: [id number] DOCUMENT ID: [id number] ELSY YBARRA MD at 1641 CC: [id number] DICTATION DATE: 09/29/18 1008 FURNITURE PACKER: 09/30/18 0454 DIS IN 09/30/18 [place] [id number] [place] [address]
--- NOTE | 2018-10-03 16:41 | OP ---
PATIENT NAME: LATASHA MOORE MEDICAL RECORD: [id number] :[birth year] LOCATION:D.M2 D.2115 ADMISSION DATE:09/26/18 SURGEON: ELSY YBARRA MD DATE OF OPERATION: 09/27/2018 PROCEDURES: 1. PTCA and stent of RCA. 2. Left heart catheterization. 3. Selective coronary angiography. 4. Left ventriculogram. INDICATIONS: Non-Q-wave myocardial infarction, angina, pulmonary edema, coronary artery disease, hypertension, hyperlipidemia. DESCRIPTION OF PROCEDURE IN DETAIL: After informed consent was obtained and after detailed explanation of risks, benefits as well as alternative therapies, the patient elected to proceed with angiogram and angioplasty. The right radial area was prepped and draped in normal sterile fashion. Right radial artery was cannulated via modified Seldinger technique with placement of 6-Serbian sheath. All catheters exchanged through this sheath. FINDINGS: Left ventriculogram was performed in a standard 30-degree ASH view reveals good cardiac wall motion and ejection fraction of 55%. SELECTIVE CORONARY ANGIOGRAPHY: 1. The left main has 80% to 90% stenosis. 2. The left circumflex as well 80% to 90% stenosis. 3. The left anterior descending has mild irregularities, but no flow-limiting stenosis. 4. Right coronary has a 90% stenosis at the ostium. MAMMALOGIST AND STENT OF THE RCA OSTIUM: The stent used is a 3.5 x 12-mm El. Result was 0% residual stenosis. OVERALL IMPRESSION: Successful PTCA and stent of the RCA ostium going from 90% initial stenosis to 0% residual. PLAN: PTCA and stent of the left main and circumflex in the near future. TRANSINT:[id number] Voice Confirmation ID: [id number] DOCUMENT ID: [id number] ELSY YBARRA MD at 1641 CC: [id number] DICTATION DATE: 09/27/18 1249 TRIMMER HAND: 09/27/18 1324 DIS IN 09/30/18 [place] [id number]
--- NOTE | 2018-10-03 16:41 | OP ---
PATIENT NAME: LATASHA MOORE MEDICAL RECORD: [id number] :30 LOCATION:D.M2 D.2115 ADMISSION DATE:09/26/18 SURGEON: ELSY YBARRA MD DATE OF OPERATION: 09/29/2018 PROCEDURES: 1. PTCA stent left main. 2. PTCA stent LAD. 3. Selective coronary angiography. INDICATION: Angina, coronary artery disease, and non-Q-wave myocardial infarction. PROCEDURE IN DETAIL: After informed consent was obtained and after a detailed description of risks, benefits as well as alternative therapies, the patient elected to proceed with angiogram and angioplasty. The right femoral area was prepped and draped in normal sterile fashion. Right femoral artery was cannulated via modified Seldinger technique with placement of 6-Ecuadorean sheath. All catheters exchanged through this sheath. FINDINGS: The left main is 90% stenosed. This was addressed with a 3.5 x 15 mm El stent. This caused plaque shift into the LAD causing it to be significantly stenosed. We are able to balloon this with a 3.5 balloon. This caused an intimal dissection of the proximal LAD. We stented this with a 3.0 x 12 mm El. Result was 0% residual stenosis throughout. OVERALL IMPRESSION: Successful percutaneous transluminal coronary angioplasty stent of the left main and left anterior descending going from 90% initial stenosis to 0% residual. TRANSINT:[id number] Voice Confirmation ID: [id number] DOCUMENT ID: [id number] ELSY YBARRA MD at 1641 CC: [id number] DICTATION DATE: 09/29/18 1011 MEDICAL RECORDS MANAGER: 09/29/18 1158 DIS IN 09/30/18 [facility] [address] [place] [id number]
== END 2018-09-30 15:58 | DRG 246 ==
LOC: D.ER 07:44 → D.M2 09:32 → D.EDHOLD 09:32 → D.M2 09:43 → D.CLR 09-29 10:15 → D.M2 09-29 11:14
PROVIDERS: Family Medicine; ADMIT Internal Medicine Interventional Cardiology; ATTEND Internal Medicine Interventional Cardiology
PROC: 4A023N7 Measurement of Cardiac Sampling and Pressure, Left Heart, Percutaneous Approach (ICD-10-PCS; 2018-09-27)
PROC: B2111ZZ Fluoroscopy of Multiple Coronary Arteries using Low Osmolar Contrast (ICD-10-PCS; 2018-09-27)
PROC: B2151ZZ Fluoroscopy of Left Heart using Low Osmolar Contrast (ICD-10-PCS; 2018-09-27)
PROC: 027034Z Dilation of Coronary Artery, One Artery with Drug-eluting Intraluminal Device, Percutaneous Approach (ICD-10-PCS; principal; 2018-09-27 11:44)
PROC: 027135Z Dilation of Coronary Artery, Two Arteries with Two Drug-eluting Intraluminal Devices, Percutaneous Approach (ICD-10-PCS; 2018-09-29)
DX: I21.4 Non-ST elevation (NSTEMI) myocardial infarction (principal); I50.31 Acute diastolic (congestive) heart failure; J81.1 Chronic pulmonary edema; I11.0 Hypertensive heart disease with heart failure; I25.119 Atherosclerotic heart disease of native coronary artery with unspecified angina pectoris; J44.9 Chronic obstructive pulmonary disease, unspecified; I08.0 Rheumatic disorders of both mitral and aortic valves; E78.5 Hyperlipidemia, unspecified; E11.9 Type 2 diabetes mellitus without complications; I44.0 Atrioventricular block, first degree; Z86.73 Personal history of transient ischemic attack (TIA), and cerebral infarction without residual deficits; Z87.891 Personal history of nicotine dependence

== ENCOUNTER 2018-10-02 17:58 | Emergency (ER) | payer MEDICARE, OTHER ==
[~2018-10-02] VITALS: Ht 172.7 cm; Wt 79.1 kg
[~2018-10-02 17:58] MED LIST changes: +LISINOPRIL10 MG PO; +LISINOPRIL40 MG PO; +PLAVIX75 MG PO; +PROCARDIA XL PO; +PROCARDIA10 MG PO
[2018-10-02 18:01] VITALS: Ht 172.7 cm; Wt 79.1 kg
[2018-10-02 18:32] LABS: BASOPHILS 0.1 % (0-2); EOSINOPHILS 1.8 % (0-7); HEMATOCRIT 39.3 % (42.0-54.0); HEMOGLOBIN 12.8 g/dL (13.5-17.5); IMMATURE GRANULOCYTES 0.1 % (0-5); LYMPHOCYTES 38.2 % (15-50); MCHC 32.6 g/dL (31.0-37.0); MCV 92.3 fL (80.0-100.0); MONOCYTES 13.1 % (2-11); NEUTROPHILS 46.7 % (40-80); PLATELET COUNT 170 10x3/uL (130-400); RBC 4.26 10x6/uL (4.20-6.10); RDW 14.3 % (11.5-14.5); WBC 7.1 10x3/uL (4.8-10.8)
[2018-10-02 18:44] LABS: ALBUMIN 2.9 g/dL (3.4-5.0); ALKALINE PHOSPHATASE 150 U/L (46-116); ALT (SGPT) 62 U/L (10-68); BILIRUBIN - TOTAL 0.56 mg/dL (0.2-1.3); CALC OSMOLALITY 281 mosm/kg (275-300); CALCIUM 9.2 mg/dL (8.5-10.1); CARBON DIOXIDE 27.7 mmol/L (21.0-32.0); CHLORIDE - SERUM 103 mmol/L (98-107); CREATININE - SERUM 1.3 mg/dL (0.6-1.3); GLUCOSE 104 mg/dL (74-106); POTASSIUM - SERUM 3.8 mmol/L (3.5-5.1); PROTEIN - SERUM 6.8 g/dL (6.4-8.2); SODIUM 138 mmol/L (136-145); UREA NITROGEN 30 mg/dL (7-18); eGFR NON AFRICAN AMERICAN 55 mL/min (90-120)
[2018-10-02 18:59] LABS: CKMB 2.2 U/L (0.0-3.6); CREATINE KINASE 64 UL (21-232); MAGNESIUM - SERUM 1.6 mg/dL (1.8-2.4); THYROID STIMULATING HORMONE 2.56 uIU/mL (0.36-3.74); TROPONIN-I 0.031 ng/mL (0.000-0.060)
[2018-10-02 20:32] LABS: APTT 27.3 SECONDS (22.8-39.4); INR 1.11 (0.85-1.17); PROTIME 13.8 SECONDS (11.6-15.0)
[2018-10-02 21:33] VITALS: BP 161/64
== END 2018-10-02 21:33 ==
LOC: D.ER 17:58
PROVIDERS: Family Medicine
DX: H57.02 Anisocoria (principal); I69.928 Other speech and language deficits following unspecified cerebrovascular disease

== ENCOUNTER 2018-11-29 15:04 | Emergency (ER) | payer MEDICARE, OTHER ==
[~2018-11-29] VITALS: Ht 172.7 cm; Wt 81.8 kg
[2018-11-29 15:08] VITALS: Ht 172.7 cm; Wt 81.8 kg
[2018-11-29 15:20] LABS: BASOPHILS 0 % (0-2); EOSINOPHILS 1.1 % (0-7); HEMATOCRIT 36.6 % (42.0-54.0); HEMOGLOBIN 12.5 g/dL (13.5-17.5); MCH 30.5 pg (26.0-34.0); MCHC 34.2 g/dL (31.0-37.0); MCV 89.3 fL (80.0-100.0); MEAN PLATELET VOLUME 9.4 fL (7.4-10.4); MONOCYTES 11.3 % (2-11); NEUTROPHILS 44.6 % (40-80); PLATELET COUNT 176 10x3/uL (130-400); RDW 14.4 % (11.5-14.5); WBC 5.6 10x3/uL (4.8-10.8)
[2018-11-29 15:28] LABS: APTT 29.7 SECONDS (22.8-39.4); INR 1.14 (0.85-1.17); PROTIME 14.1 SECONDS (11.6-15.0)
[2018-11-29 15:36] LABS: ALBUMIN 3.2 g/dL (3.4-5.0); ALKALINE PHOSPHATASE 107 U/L (46-116); ALT (SGPT) 51 U/L (10-68); BILIRUBIN - TOTAL 0.36 mg/dL (0.2-1.3); CALC OSMOLALITY 281 mosm/kg (275-300); CALCIUM 9.4 mg/dL (8.5-10.1); CARBON DIOXIDE 28.9 mmol/L (21.0-32.0); CHLORIDE - SERUM 103 mmol/L (98-107); CREATININE - SERUM 1.5 mg/dL (0.6-1.3); POTASSIUM - SERUM 4.3 mmol/L (3.5-5.1); PROTEIN - SERUM 6.8 g/dL (6.4-8.2); SODIUM 137 mmol/L (136-145); UREA NITROGEN 26 mg/dL (7-18); eGFR NON AFRICAN AMERICAN 47 mL/min (90-120)
[2018-11-29 15:40] LABS: GLUCOSE 157 mg/dL (74-106)
[2018-11-29 15:47] LABS: CKMB 1.3 U/L (0.0-3.6); CREATINE KINASE 44 UL (21-232); MAGNESIUM - SERUM 1.6 mg/dL (1.8-2.4)
[2018-11-29 15:51] LABS: TROPONIN-I < 0.017 ng/mL (0.000-0.060)
[2018-11-29] MEDS ORDERED: ENTRESTO 24 MG1 EACH PO (16:10)
[2018-11-29 16:38] VITALS: BP 173/60
== END 2018-11-29 16:39 | disposition home or self-care (01) ==
LOC: D.ER 15:04
PROVIDERS: Emergency Medicine
DX: R07.9 Chest pain, unspecified (principal); D64.9 Anemia, unspecified; I50.9 Heart failure, unspecified; E11.9 Type 2 diabetes mellitus without complications; E83.42 Hypomagnesemia

== ENCOUNTER → 2019-03-11 08:40 | Outpatient (CLI) | payer MEDICARE, OTHER ==
[2018-11-29 15:08] VITALS: BMI 27.4
[~2019-03-11 08:40] MED LIST changes: +ENTRESTO 24 MG1 EACH PO
== END | disposition home or self-care (01) ==
LOC: D.RT 08:40
PROVIDERS: ATTEND Family Medicine
DX: J44.9 Chronic obstructive pulmonary disease, unspecified (principal); R06.02 Shortness of breath

== ENCOUNTER → 2019-09-24 07:50 | Outpatient (CLI) | payer MEDICARE, OTHER ==
[2018-11-29 15:08] VITALS: BMI 27.4
== END | disposition home or self-care (01) ==
LOC: D.RAD 07:50
PROVIDERS: ATTEND Family Medicine
DX: R13.12 Dysphagia, oropharyngeal phase (principal); E11.40 Type 2 diabetes mellitus with diabetic neuropathy, unspecified; Z79.84 Long term (current) use of oral hypoglycemic drugs; I10 Essential (primary) hypertension; I48.0 Paroxysmal atrial fibrillation; E78.2 Mixed hyperlipidemia

== ENCOUNTER → 2020-01-08 12:28 | Outpatient (CLI) | payer MEDICARE, OTHER ==
[2018-11-29 15:08] VITALS: BMI 27.4
== END | disposition home or self-care (01) ==
LOC: D.RAD 12:28
PROVIDERS: ATTEND Family Medicine
DX: R13.10 Dysphagia, unspecified (principal)

== ENCOUNTER 2020-01-19 07:13 | Day surgery (SDC) | payer MEDICARE, OTHER ==
[~2020-01-19] VITALS: Ht 172.7 cm; Wt 82.7 kg
--- NOTE | ~2020-01-19 | HEMODYNAMI ---
PATIENT:LATASHA MOORE MEDICAL RECORD: [id number] : 30 LOCATION:[facility] ADMISSION DATE: 01/19/20 Generatedon:01/19/20209:15 Patient name: LATASHA MOORE Patient #: [id number] : 1930 Date of study: 01/19/2020 Page: Of Hemodynamic Procedure Report Patient Data Patient Demographics Procedure consent was obtained First Name: LATASHA Gender: Male Last Name: OSCAR : 1930 Middle Initial: PALAK Age: 89 year(s) Patient #: [id number] Race: SSN: [id number] Additional ID: [id number] Contact details [address]: [address] [place] [address] State: [place] City: [place] Zip code: [address] Past Medical History Allergies: No known allergies Admission Admission Data Admission Date: 01/19/2020 Admission Time: 7:13 Arrival Date: 01/19/2020 Arrival Time: 9:00 Admit Source: Other Insurance Payor: Medicare [facility] #: [id number] Procedure Procedure Types Cath Procedure Diagnostic Procedure Sedation Charges Moderate Sedation up to 15 minutes Peripheral Cath Diagnostic Procedure Director Long Term Care Peripheral Procedures AFRO (Diagnostic) Abd/Extremity Aortagram Extremities Bilat Lower Extremity Procedure Description Procedure Date Procedure Date: 01/19/2020 Procedure Start Time: 9:05 Procedure End Time: 9:11 Procedure Staff Name Function Camacho Palma MD Performing Physician Luisa Olivarez RT Monitor Rosa Patel RT Scrub Taras Paige RN Nurse Procedure Data Cath Procedure Fluoroscopy Diagnostic fluoroscopy Total fluoroscopy Time: 0.8 time: 0.8 min min Diagnostic fluoroscopy Total fluoroscopy dose: 197 dose: 197 mGy mGy Contrast Material Contrast Material Type Amount (ml) Isovue 300 64 Entry Location Entry Primary Successful Side Size Upsize Upsize Entry Closure Succes sful Closure Location (Fr) 1 (Fr) 2 (Fr) Remarks Device Remarks Femoral Right 5 Fr Exoseal artery Estimated blood loss: 5 ml Diagnostic catheters Device Type Used For End Catheter Placement DIAGNOSTIC UF 5Fr Multi-vessel catheter ([id number]) Angiography Procedure Complications No complications Procedure Medications Medication Administration Route Dosage Oxygen etCO2 Nasal cannula 2 l/min Lidocaine 2% added to field 20 Heparin Flush Bag added to field 2 bags (1000units/500ml NS) 0.9% NaCl I.V. 100 ml/hr Versed I.V. 1 mg Fentanyl I.V. 50 mcg Versed I.V. 1 mg Fentanyl I.V. 50 mcg Fentanyl I.V. 50 mcg Hemodynamics Rest Heart Rate: 50 (bpm) Snapshots Pre Cath Intra NCS Post Cath Vital Signs Time Heart Resp SPO2 etCO2 NIBP (mmHg) Rhythm Pain Sedation Rate (ipm) (%) (mmHg) Status Level (bpm) 8:43:32 50 16 100 0 124/55(105) NSR 0 (11) 10(A) , No pain 8:47:49 50 18 100 19.5 129/55(81) NSR 0 (11) 10(A) , No pain 8:52:00 50 20 100 18 134/59(79) NSR 0 (11) 10(A) , No pain 8:56:18 59 15 100 0 118/51(80) NSR 0 (11) 10(A) , No pain 9:00:32 51 12 100 36.8 121/51(84) NSR 0 (11) 10(A) , No pain 9:04:46 48 11 100 36.7 115/49(85) NSR 0 (11) 9(A) , No pain 9:09:43 57 13 100 40.5 120/51(88) NSR 0 (11) 9(A) , No pain 9:13:43 56 11 100 37.5 111/51(76) NSR 0 (11) 10(A) , No pain Medications Time Medication Route Dose Verified Delivered Reason Notes Effe ctiveness by by 8:44:49 Oxygen etCO2 2 Camacho Buffie used for Nasal l/min Louie Paige RN procedure cannula 8:44:56 Lidocaine 2% added 20ml Camacho Camacho for local to vial Louie Palma MD anesthetic field 8:45:02 Heparin Flush added 2 Camacho Camacho used for Bag to bags Louie Palma MD procedure (1000units/500ml field NS) 8:45:10 0.9% NaCl I.V. 100 Camacho Buffie Per ml/hr Louie Paige RN physician 8:53:06 Versed I.V. 1 mg Camacho Buffie for Louie Paige RN sedation 8:53:11 Fentanyl I.V. 50 Camacho Buffie for mcg Louie Paige RN sedation 9:01:36 Versed I.V. 1 mg Camacho Buffie for Louie Paige RN sedation 9:01:39 Fentanyl I.V. 50 Camacho Buffie for mcg Louie Paige RN sedation 9:05:39 Fentanyl I.V. 50 Camacoh Buffie for mcg Louie Paige RN sedation Procedure Log Time Note 7:56:40 Informed consent obtained and on chart 7:57:40 Diagnostic Cath Status : Elective 8:01:14 Arrival Date: 01/19/2020 9:00:00 AM 8:02:11 Admit Source: Other 8:02:15 Insurance Payor : Medicare 8:03:10 Procedure Status Peripheral. 8:03:13 Luisa ELLSWORTH(R) sent for patient. Start room use. 8:03:14 Time tracking: Regular hours (M-F 7:00 - 5:00) 8:03:19 Plan of Care:Hemodynamics will remain stable., Cardiac rhythm will remain stable., Comfort level will be maintained., Respiratory function will remain adequate., Patient/ family verbilizes understanding of procedure., Procedure tolerated without complication., Recovers from procedure without complications.. 8:42:10 Vital chart was started 8:44:49 Oxygen 2 l/min etCO2 Nasal cannula was administered by Taras Paige RN; used for procedure; Verbal order read back and verified. 8:44:56 Lidocaine 2% 20ml vial added to field was administered by Camacho Palma MD; for local anesthetic; Verbal order read back and verified. 8:45:02 Heparin Flush Bag (1000units/500ml NS) 2 bags added to field was administered by Camacho Palma MD; used for procedure; Verbal order read back and verified. 8:45:10 0.9% NaCl 100 ml/hr I.V. was administered by Taras Paige RN; Per physician; Verbal order read back and verified. 8:49:10 Patient received from Pre/Post Procedure Room to CCL 2 Alert and oriented. Tansferred to table in Supine position. 8:49:11 Warm blankets applied, and dominic hugger turned on for patient comfort. 8:49:11 Correct patient and procedure confirmed by team. 8:49:12 Baseline sample Acquired. 8:49:12 ECG and BP/O2 sat monitors applied to patient. 8:49:16 Rhythm: atrial fibrillation 8:49:18 Full Disclosure recording started 8:49:22 H&P Date Dictated: 01/19/2020 Within 30 days and on chart., H&P Addendum completed by physician on day of procedure. (MUST COMPLETE FOR ALL OUTPATIENTS). 8:49:23 Pre-procedure instructions explained to patient. 8:49:24 Pre-op teaching completed and patient verbalized understanding. 8:49:26 Family in patients room. 8:49:27 Patient NPO since Midnight. 8:49:30 Is the patient allergic to Iodine/contrast media? No. 8:49:31 Was the patient premedicated? Yes 8:49:34 Is patient on blood thinner?Yes 8:50:02 patient states last dose of Eliquis on 01/17/2020 8:50:05 Patient diabetic? Yes. 8:50:06 If diabetic: On Metformin? Yes 8:50:13 If on Metformin: Last Dose? 01/19/2020 8:50:16 Previous problem with sedation/anesthesia? No ? 8:50:18 Snore? Yes 8:50:19 Sleep apnea? No 8:50:20 Deviated septum? No 8:50:20 Opens mouth fully? Yes 8:50:21 Sticks out tongue? Yes 8:50:23 Airway obstruction? No ? 8:50:26 Dentures? No ? 8:51:45 Pre procedure: right dorsailis pedis pulse 1+ Palpable, but thready & weak; easily obliterated 8:51:49 Pre procedure: left dorsailis pedis pulse 1+ Palpable, but thready & weak; easily obliterated 8:51:50 Patient pain scale 0/10 ?. 8:51:57 IV patent on arrival in left forearm with 0.9% NaCl at KVO. 8:52:00 Lab results completed and on chart. 8:52:05 Stress Test: no; N/A ? 8:52:10 Bilateral groins area was prepped with chlora-prep and draped in sterile fashion 8:52:11 Alarms reviewed by REnzo N. 8:52:12 Sharps counted by scrub and verified by R.N. 8:52:13 Physician arrived 8:52:13 --------ALL STOP TIME OUT------ 8:52:14 Final Timeout: patient, procedure, and site verified with staff and physician. All members of the team are in agreement. 8:52:16 Bilateral groins site verified by team. 8:52:19 Fire Safety Assessment: A--An alcohol-based skin anteseptic being used preoperatively., C--Open oxygen or nitrous oxide is being used., D--An ESU, laser, or fiber-optic light is being used. 8:52:22 Physical assessment completed. ASA score P 2 - A patient with mild systemic disease as per Camacho Palma MD. 8:53:06 Versed 1 mg I.V. was administered by Taras Paige RN; for sedation; Verbal order read back and verified. 8:53:11 Fentanyl 50 mcg I.V. was administered by Taras Paige RN; for sedation; Verbal order read back and verified. 8:53:47 3a) 45-59 Moderately reduced kidney function. 8:54:12 Maximum allowable contrast dose (3.7 X eGFR X 0.75)130 ml. 8:54:17 Sedation plan: IV Moderate Sedation Medication:Versed, Fentanyl 8:54:25 Use device set CATH PACK 8:54:26 ACIST Syringe (05486) opened to sterile field. 8:54:27 ACIST Hand Control (51442) opened to sterile field. 8:54:27 ACIST Manifold (38536) opened to sterile field. 8:54:27 Medline Cath Pack ([id number]) opened to sterile field. 8:54:28 Bag Decanter (2001S) opened to sterile field. 8:54:28 EMERALD Guide Wire (095-426) opened to sterile field. 8:54:35 SHEATH 5FR Dingess (GLC062) opened to sterile field. 9:01:36 Versed 1 mg I.V. was administered by Taras Paige RN; for sedation; Verbal order read back and verified. 9:01:39 Fentanyl 50 mcg I.V. was administered by Buffie Paige RN; for sedation; Verbal order read back and verified. 9:04:02 Procedure started. 9:04:05 Local anesthetic to right femoral artery with Lidocaine 2% by Camacho Palma MD.INITIAL ACCESS ONLY 9:04:17 A 5 Fr sheath was inserted into the Right Femoral artery 9:05:29 A DIAGNOSTIC UF 5Fr catheter ([id number]) was advanced over the wire and used for Multi-vessel Angiography. 9:05:39 Fentanyl 50 mcg I.V. was administered by Taras Paige RN; for sedation; Verbal order read back and verified. 9:06:29 Abdominal angiogram w/ runoff was performed. 9:06:35 Injector settings: Ml/sec: 10, Volume: 20, 9:08:32 EXOSEAL 5Fr (EX500) opened to sterile field. 9:09:26 Sheath removed intact; hemostasis achieved with Exoseal to the Right Femoral artery. 9:09:28 Procedure ended.(Physican Out) 9:09:41 Fluoroscopy time 00.80 minutes. 9:09:44 Flurop Dose total: 197 9:09:44 Fluoroscopy dose: 197 mGy 9:09:50 Dose Area Product 37992 mGy/cm. 9:09:54 Contrast amount:Isovue 300 64ml. 9:10:26 Maximum allowable dose exceeded? No. 9:10:27 Sharps counted by scrub and verified by R.N. 9:10:29 Insertion/operative site no bleeding no hematoma. 9:10:31 Post-op/insertion site Right Femoral artery dressed using a 4 x 4 and Tegaderm. 9:10:33 Post Procedure Pulses reassessed and unchanged 9:10:37 Post procedure rhythm: unchanged. 9:10:49 Estimated blood loss: 5 ml 9:10:51 Post procedure instruction explained to patient.Patient verbalizes understanding. 9:10:52 Patient needs reinforcement of post procedure teaching. 9:11:32 Procedure type changed to Cath procedure, Diagnostic procedure, Sedation Charges, Moderate Sedation up to 15 minutes, Peripheral Cath Diagnostic Procedure, Director Long Term Care Peripheral Procedures, AFRO (Diagnostic), Abd/Extremity, Aortagram, Extremities, Bilat Lower Extremity 9:11:32 Procedure and supply charges have been captured, reviewed, submitted and are correct. 9:11:36 Procedure Complication : No complications 9:11:39 Vital chart was stopped 9:11:44 AFRO Findings: PVD: mild to moderate (<70%) 9:11:46 Operative report dictated upon procedure completion. 9:11:46 See physician's report for complete and final results. 9:11:48 Report given to Pre/Post Procedure Room. 9:11:51 Patient transfered to Pre/Post Procedure Room with Stretcher. 9:11:52 Procedure ended. 9:11:52 Full Disclosure recording stopped 9:11:57 End room use (Document Last) Device Usage Item Name Manufacture Quantity Catalog Hospital Part Current Minimal L ot# / Number Charge Number Stock Stock Serial# Code ACIST Acist 1 [id number] [id number] [id number] 20 Syringe Medical (49697) Systems Inc ACIST Hand Acist 1 16377 573047 861125 836792 5 Control Medical (31597) Systems Inc ACIST Acist 1 32670 969402 766952 477716 5 Manifold Medical (86936) Systems Inc Medline Medline 1 [id number] 289333 19114 339320 5 Cath Pack ([id number]) Bag Microtek 1 399729 06861 737564 5 Decanter Medical Inc. () EMERALD Cardinal 1 502-455 208844 336138 176361 5 Guide Wire Health (502-455) SHEATH 5FR Terumo 1 [id number] 067801 851858 394733 5 Dingess (HCC187) DIAGNOSTIC Cardinal 1 [id number] 549559 685851 722194 10 UF 5Fr Health catheter ([id number]) EXOSEAL 5Fr Cardinal 1 EX500 763284 292057 266140 10 (EX500) Health Signature Audit [place] Stage Time Signature Unsigned Intra-Procedure 01/19/2020 Rosa Patel 9:14:18 AM RT(R) Intra-Procedure 01/19/2020 Taras Paige RN 9:14:36 AM Intra-Procedure 01/19/2020 Camacho Palma MD 9:15:46 AM Signatures Performing Physician : Signature : Camacho Palma MD Date : Time : Monitor : Luisa Sher Signature : RT Date : Time : Nurse : Buffie Paige RN Signature : Date : Time : [address] [place] [address]
[2020-01-19] MEDS ORDERED: FUROSEMIDE40 MG PO (07:54)
[2020-01-19] MEDS ORDERED: PROCARDIA XL60 MG PO (07:54)
[2020-01-19] MEDS ORDERED: K-TAB10 MEQ PO (07:55)
[2020-01-19 08:03] VITALS: BP 113/33; Ht 172.7 cm; Wt 82.7 kg
[2020-01-19 08:27] LABS: BASOPHILS 0.2 % (0-2); EOSINOPHILS 1.5 % (0-7); HEMATOCRIT 36.2 % (42.0-54.0); HEMOGLOBIN 11.9 g/dL (13.5-17.5); IMMATURE GRANULOCYTES 0.2 % (0-5); LYMPHOCYTES 31.5 % (15-50); MCH 31.2 pg (26.0-34.0); MCHC 32.9 g/dL (31.0-37.0); MEAN PLATELET VOLUME 9.4 fL (7.4-10.4); NEUTROPHILS 54.6 % (40-80); PLATELET COUNT 161 10x3/uL (130-400); RBC 3.81 10x6/uL (4.20-6.10); RDW 13.9 % (11.5-14.5); WBC 6.5 10x3/uL (4.8-10.8)
[2020-01-19 08:30] LABS: ANION GAP 10.6 mmol/L (8-16); CALCIUM 9.2 mg/dL (8.5-10.1); CREATININE - SERUM 1.5 mg/dL (0.6-1.3); POTASSIUM - SERUM 4.6 mmol/L (3.5-5.1)
--- NOTE | 2020-01-19 09:30 | NUR ---
PT REC'D TO ROOM 7 VIA STRETCHER FROM PERMIT SPECIALIST. MONITORS ESTAB. AND DAUGHTER AT BS. SEE COMMERCIAL SPECIALIST. ALARMS ON AND C/L IN REACH.
--- NOTE | 2020-01-19 09:45 | NUR ---
R GROIN SITE SOFT, NO S/S BLEEDING OR HEMATOMA. VSS. R LEG/FOOT WARM WITH PALP PULSES. ALARMS ON AND C/L IN REACH.
--- NOTE | 2020-01-19 10:25 | NUR ---
R GROIN SITE SOFT, NO S/S BLEEDING OR HEMATOMA. HOB ELEVATED GRADUALLY. DAUGHTER AT BS ASSISTING WITH WATER. R GROIN SITE SOFT, NO S/S BLEEDING OR HEMATOMA.
--- NOTE | 2020-01-19 10:30 | NUR ---
DR RODRÍGUEZ IN TO UPDATE PT AND FAMILY. R GROIN SITE SOFT, C/D/I, VSS.
--- NOTE | 2020-01-19 10:32 | NUR ---
DR. RODRÍGUEZ IN TO UPDATE PT AND HER DAUGHTER. VSS. R [facility] SITE C/D/I.
--- NOTE | 2020-01-19 10:41 | NUR ---
PIV D/C'D INTACT, DSG APPLIED. PT ALLOWED UP TO GET DRESSED AND GO TO BR INDEPENDENTLY.
--- NOTE | 2020-01-19 10:43 | NUR ---
SANDWICH TRAY AND WATER PROVIDED, DAUGHTER ASSISTING PT.
--- NOTE | 2020-01-19 11:20 | NUR ---
R GROIN SITE SOFT, NO S/S BLEEDING OR HEMATOMA. PIV D/C'D INTACT, DSG APPLIED. PT ASSISTED UP TO GET DRESSED, THEN TO BR INDEPENDENTLY.
--- NOTE | 2020-01-19 11:45 | NUR ---
ALL DISCHARGE INSTRUCTIONS REVIEWED WITH PT, AND DAUGHTER - INCLUDING RESTRICTIONS, MEDS AND F/U APPT. ALL VERBALIZE UNDERSTANDING.
--- NOTE | 2020-01-19 11:50 | NUR ---
PT D/C'D TO PRIVATE VEHICLE WITH ALL PAPER WORK AND BELONGINGS.
[2020-01-19] MEDS ORDERED: GLIMEPIRIDE2 MG PO (12:00)
== END 2020-01-19 11:50 | disposition home or self-care (01) ==
LOC: D.CATH 07:13
PROVIDERS: ATTEND Internal Medicine Cardiovascular Disease
DX: I70.213 Atherosclerosis of native arteries of extremities with intermittent claudication, bilateral legs (principal); I25.10 Atherosclerotic heart disease of native coronary artery without angina pectoris; I10 Essential (primary) hypertension; J44.9 Chronic obstructive pulmonary disease, unspecified